=== PATIENT | female | born 1975 | race Two or more races ===

== ENCOUNTER 2016-08-04 15:19 | Emergency (ER) | payer MEDICAID ==
[~2016-08-04] VITALS: Ht 167.6 cm; Wt 108.9 kg
[~2016-08-04 15:19] MED LIST: LEVE500T22 PO
[2016-08-04 16:17] VITALS: BP 130/79
[2016-08-04] MEDS ORDERED: LEVETIRACETAM INJ 1,000 MG in SODIUM CHL 0.9% 100 ML IV ONE (16:30)
[2016-08-04] MEDS ORDERED: ONDANSETRON HCL 4 MG/2 ML VIAL IV ONE (16:30)
[2016-08-04] MEDS ORDERED: MORPHINE SULFATE 4 MG/ML SYRG IV ONE (16:30)
[2016-08-04 17:19] LABS: Albumin 3.4 g/dL (3.4-5.0); BUN/Creatinine Ratio 16.7; Bilirubin, Total 0.3 mg/dL (0.2-1.0); Calcium 8.2 mg/dL (8.5-10.1); Potassium 3.2 mmol/L (3.5-5.1); Total Protein 7.5 g/dL (6.4-8.2)
[2016-08-04 17:37] LABS: Basophils # (auto) 0 uL; Basophils % (auto) 0.3 % (0.0-2.0); DEFINITIVE VIEW TRANSMISSION; Eosinophils # (auto) 0.1 uL; Eosinophils % (auto) 1.3 % (0.0-7.0); Hematocrit 37.7 % (36.0-46.0); Hemoglobin 11.8 g/dL (12.2-16.2); Lymphocytes # (auto) 0.9 uL; Lymphocytes % (auto) 11.8 % (10.0-50.0); Mean Corpuscular Hemoglobin 26.9 pg (28.0-32.0); Mean Corpuscular Hgb Conc. 31.4 g/dL (32.0-36.0); Mean Corpuscular Volume 85.8 fL (80.0-100.0); Mean Platelet Volume 8.9 fL (7.4-10.4); Monocytes # (auto) 0.4 uL; Monocytes % (auto) 5.6 % (0.0-12.0); Neutrophils # (auto) 6.2 uL; Platelet Count (auto) 340 10^3/uL (140-450); White Blood Cell 7.7 10^3/uL (4.4-10.8)
== END 2016-08-04 19:06 | disposition home or self-care (01) ==
LOC: EDUNIT# 15:19 → ER 15:30
DX: G40.909 Epilepsy, unspecified, not intractable, without status epilepticus (principal)
CPT/HCPCS: 36415; 80053; 85025; 94761; 96365; 96375; 99284; J1953; J2270; J2405; J7030

== ENCOUNTER 2016-08-22 22:14 | Emergency (ER) | payer MEDICAID ==
[~2016-08-22] VITALS: Ht 167.6 cm; Wt 104.3 kg
[2016-08-22] MEDS ORDERED: SODIUM CHLORIDE 0.9% 1,000 ML IVB ONE (23:16)
[2016-08-22] MEDS ORDERED: LEVETIRACETAM INJ 1,000 MG in SODIUM CHL 0.9% 100 ML IV ONE (23:30)
[2016-08-22] MEDS ORDERED: LEVETIRACETAM 500 MG/5ML INJ IV ONE (23:49)
[2016-08-22 23:57] LABS: Basophils # (auto) 0 uL; Basophils % (auto) 0.3 % (0.0-2.0); DEFINITIVE VIEW TRANSMISSION; Eosinophils # (auto) 0.1 uL; Eosinophils % (auto) 1.8 % (0.0-7.0); Hematocrit 37.2 % (36.0-46.0); Hemoglobin 11.7 g/dL (12.2-16.2); Lymphocytes # (auto) 1.2 uL; Lymphocytes % (auto) 19.4 % (10.0-50.0); Mean Corpuscular Hemoglobin 26.8 pg (28.0-32.0); Mean Corpuscular Hgb Conc. 31.6 g/dL (32.0-36.0); Mean Corpuscular Volume 84.9 fL (80.0-100.0); Mean Platelet Volume 8.1 fL (7.4-10.4); Monocytes # (auto) 0.6 uL; Monocytes % (auto) 9.2 % (0.0-12.0); Neutrophils # (auto) 4.4 uL; Neutrophils % (auto) 69.3 % (37.0-80.0); Platelet Count (auto) 361 10^3/uL (140-450); Red Cell Distribution Width 14.4 % (11.6-16.0); White Blood Cell 6.3 10^3/uL (4.4-10.8)
[2016-08-23 00:18] LABS: Albumin 3.5 g/dL (3.4-5.0); BUN/Creatinine Ratio 17.3; Calcium 8.3 mg/dL (8.5-10.1); Potassium 3.6 mmol/L (3.5-5.1)
[2016-08-23 00:21] LABS: Bilirubin, Total 0.3 mg/dL (0.2-1.0); Total Protein 7.6 g/dL (6.4-8.2)
[2016-08-23 07:00] VITALS: BP 110/66
== END 2016-08-23 07:29 | disposition home or self-care (01) ==
LOC: ER 22:17
DX: G40.909 Epilepsy, unspecified, not intractable, without status epilepticus (principal); E07.9 Disorder of thyroid, unspecified
CPT/HCPCS: 36415; 80053; 81025; 85025; 96365; 96366; 99285; J1953

== ENCOUNTER 2017-08-19 13:12 | Emergency (ER) | payer MEDICAID ==
[~2017-08-19] VITALS: Ht 170.2 cm; Wt 68.0 kg
[2017-08-19 13:33] VITALS: BP 140/75
[2017-08-19 14:05] LABS: Basophils # (auto) 0.1 uL; Basophils % (auto) 1.1 % (0.0-2.0); Eosinophils # (auto) 0.1 uL; Eosinophils % (auto) 1.4 % (0.0-7.0); Hematocrit 36.7 % (36.0-46.0); Hemoglobin 11.8 g/dL (12.2-16.2); Lymphocytes # (auto) 0.8 uL; Lymphocytes % (auto) 14.7 % (10.0-50.0); Mean Corpuscular Hemoglobin 26.5 pg (28.0-32.0); Mean Corpuscular Hgb Conc. 32.2 g/dL (32.0-36.0); Mean Corpuscular Volume 82.2 fL (80.0-100.0); Monocytes # (auto) 0.4 uL; Monocytes % (auto) 7.8 % (0.0-12.0); Nucleated Red Blood Cells % 0.1 %; Platelet Count (auto) 308 10^3/uL (140-450); Red Blood Cells 4.46 10^6/uL (4.0-5.20); Red Cell Distribution Width 16.5 % (11.8-14.3); White Blood Cell 5.3 10^3/uL (4.4-10.8)
[2017-08-19 15:26] LABS: Albumin 3.5 g/dL (3.4-5.0); BUN/Creatinine Ratio 15.6; Bilirubin, Total 0.2 mg/dL (0.2-1.0); Calcium 8.6 mg/dL (8.5-10.1)
[2017-08-19] MEDS ORDERED: HYDROcodone-ACET 5/325MG TAB PO ONE (20:00)
== END 2017-08-19 21:26 | disposition home or self-care (01) ==
LOC: ER 13:12 → EDBD 13:12 → ER 21:18
DX: R56.9 Unspecified convulsions (principal)
CPT/HCPCS: 36415; 80053; 85025

== ENCOUNTER 2017-09-30 14:17 | Emergency (ER) | payer MEDICAID ==
[~2017-09-30] VITALS: Ht 167.6 cm; Wt 84.1 kg
[2017-09-30 14:56] LABS: Urine Bacteria NONE SEEN /hpf (None Seen); Urine Blood Negative /uL (Negative); Urine Specific Gravity 1.008 (1.001-1.035); Urine WBC 1 /hpf (0 - 5)
[2017-09-30 14:58] LABS: Alcohol, Urine < 3.0 mg/dL (0-5); Amphetamine Screen, Urine NEGATIVE (NEGATIVE); Barbiturate Scree,Urine NEGATIVE (NEGATIVE); Benzodiazephine Screen, Urine NEGATIVE (NEGATIVE); Cannabinoid Screen, Urine NEGATIVE (NEGATIVE); Cocaine Screen, Urine NEGATIVE (NEGATIVE); Opiate Scree,Urine NEGATIVE (NEGATIVE); Phencyclidine Screen, Urine NEGATIVE (NEGATIVE)
[2017-09-30 15:23] LABS: Basophils # (auto) 0 uL; Basophils % (auto) 0.4 % (0.0-2.0); Eosinophils # (auto) 0.1 uL; Eosinophils % (auto) 2.1 % (0.0-7.0); Hematocrit 35.2 % (36.0-46.0); Hemoglobin 11.6 g/dL (12.2-16.2); Lymphocytes # (auto) 1.3 uL; Lymphocytes % (auto) 26.7 % (10.0-50.0); Mean Corpuscular Volume 81.9 fL (80.0-100.0); Monocytes # (auto) 0.4 uL; Monocytes % (auto) 8.7 % (0.0-12.0); Neutrophils # (auto) 3.1 uL; Neutrophils % (auto) 62.1 % (37.0-80.0); Nucleated Red Blood Cells % 0.1 %; Platelet Count (auto) 304 10^3/uL (140-450); Red Cell Distribution Width 15.6 % (11.8-14.3); White Blood Cell 4.9 10^3/uL (4.4-10.8)
[2017-09-30 15:33] LABS: INR 0.98 (0.9-1.15); Partial Thromboplastin Time 26.8 sec (22.64-33.71); Prothrombin Time 10.7 sec (9.37-12.3)
[2017-09-30 15:44] LABS: Alanine Aminotransferase 17 U/L (13-56); Albumin 3.5 g/dL (3.4-5.0); Alkaline Phosphatase 151 U/L (45-117); Anion Gap 7 (5-15); Aspartate Aminotransferase 15 U/L (15-37); BUN/Creatinine Ratio 12.3; Bilirubin, Total 0.2 mg/dL (0.2-1.0); Blood Urea Nitrogen 10 mg/dL (7-18); Calcium 8.2 mg/dL (8.5-10.1); Carbon Dioxide 24 mmol/L (21-32); Chloride 109 mmol/L (98-107); GFR African American 101 mL/min; GFR Non-African American 84 mL/min; Glucose 87 mg/dL (74-106); Magnesium 2.3 mg/dL (1.6-2.6); Potassium 3.7 mmol/L (3.5-5.1); Sodium 140 mmol/L (136-145); Total Protein 7.9 g/dL (6.4-8.2)
[2017-10-01] MEDS ORDERED: LORazepam 2MG/ML-1ML VIAL ONE (00:53)
[2017-10-01] MEDS ORDERED: LORazepam 2MG/ML-1ML VIAL IV ONE (01:00)
[2017-10-01 02:43] VITALS: BP 98/59
== END 2017-10-01 02:39 | disposition home or self-care (01) ==
LOC: ER 14:17 → EDBD 14:17 → ER 10-01 02:39
DX: G40.909 Epilepsy, unspecified, not intractable, without status epilepticus (principal); E07.89 Other specified disorders of thyroid
CPT/HCPCS: 36415; 70450; 71045; 73020; 80053; 80307; 81001; 83735; 84484; 85025; 85610; 85730; 93005; 96374; 99285; J2060

== ENCOUNTER 2017-12-07 18:33 | Inpatient (IN) | payer MEDICAID ==
[~2017-12-07] VITALS: Ht 167.6 cm; Wt 114.8 kg
[2017-12-07] VITALS: BP 118/74
[2017-12-07] MEDS ORDERED: SODIUM CHLORIDE 0.9% 1,000 ML IVB ONE (18:56)
[2017-12-07] MEDS ORDERED: LEVETIRACETAM INJ 1,000 MG in D5W 5% 100 ML IV ONE ×2 (19:00→21:00)
[2017-12-07] MEDS ORDERED: LORazepam 2MG/ML-1ML VIAL IV ONE (19:00)
[2017-12-07 19:36] LABS: Basophils # (auto) 0 uL; Eosinophils # (auto) 0.1 uL; Mean Corpuscular Volume 80.8 fL (80.0-100.0); Monocytes # (auto) 0.6 uL; Neutrophils # (auto) 3.9 uL; White Blood Cell 5.6 10^3/uL (4.4-10.8)
[2017-12-07 19:38] LABS: Basophils % (auto) 0.5 % (0.0-2.0); Eosinophils % (auto) 1.8 % (0.0-7.0); Hematocrit 33.9 % (36.0-46.0); Hemoglobin 11.2 g/dL (12.2-16.2); Lymphocytes # (auto) 0.9 uL; Lymphocytes % (auto) 16.9 % (10.0-50.0); Mean Corpuscular Hemoglobin 26.6 pg (28.0-32.0); Mean Corpuscular Hgb Conc. 32.9 g/dL (32.0-36.0); Monocytes % (auto) 10.1 % (0.0-12.0); Neutrophils % (auto) 70.7 % (37.0-80.0); Nucleated Red Blood Cells % 0.1 %; Platelet Count (auto) 290 10^3/uL (140-450); Red Blood Cells 4.19 10^6/uL (4.0-5.20); Red Cell Distribution Width 14.9 % (11.8-14.3)
[2017-12-07 19:58] LABS: Albumin 3.3 g/dL (3.4-5.0); Magnesium 2.2 mg/dL (1.6-2.6); Potassium 3.4 mmol/L (3.5-5.1)
[2017-12-07 20:00] LABS: BUN/Creatinine Ratio 9.5
[2017-12-07 20:03] LABS: Bilirubin, Total 0.2 mg/dL (0.2-1.0); Total Protein 7.6 g/dL (6.4-8.2)
[2017-12-07] MEDS ORDERED: LEVETIRACETAM 500 MG/5ML INJ IV ONE (20:04)
[2017-12-07] MEDS ORDERED: ONDANSETRON HCL 4 MG/2 ML VIAL IV PRN (22:30)
[2017-12-07] MEDS ORDERED: NITROGLYCERIN 0.4 MG SL TAB SL PRN (22:30)
[2017-12-07] MEDS ORDERED: TEMAZEPAM 15 MG CAP PO PRN (22:30)
[2017-12-07] MEDS ORDERED: ACETAMINOPHEN 325 MG TAB PO PRN (22:30)
[2017-12-07] MEDS ORDERED: MORPHINE SULFATE 8mg/ml INJ SDV IV PRN (22:30)
[2017-12-07] MEDS ORDERED: LORazepam 2MG/ML-1ML VIAL IV PRN (22:30)
[2017-12-07] MEDS ORDERED: POTASSIUM CHL 20 Meq TABLET PO ONE (23:00)
[2017-12-08] VITALS (7 sets, daily range): BP systolic 86–118; BP diastolic 56–75
[2017-12-08 06:26] LABS: Basophils # (auto) 0 uL; Eosinophils # (auto) 0.2 uL; Eosinophils % (auto) 4.7 % (0.0-7.0); Lymphocytes # (auto) 1.2 uL; Neutrophils # (auto) 2.5 uL; Nucleated Red Blood Cells % 0.1 %; White Blood Cell 4.6 10^3/uL (4.4-10.8)
[2017-12-08 06:29] LABS: Basophils % (auto) 0.5 % (0.0-2.0); Hematocrit 31.7 % (36.0-46.0); Hemoglobin 10.4 g/dL (12.2-16.2); Lymphocytes % (auto) 25.8 % (10.0-50.0); Mean Corpuscular Hemoglobin 26.7 pg (28.0-32.0); Mean Corpuscular Hgb Conc. 32.9 g/dL (32.0-36.0); Mean Corpuscular Volume 81.2 fL (80.0-100.0); Monocytes # (auto) 0.6 uL; Monocytes % (auto) 14.2 % (0.0-12.0); Neutrophils % (auto) 54.8 % (37.0-80.0); Platelet Count (auto) 265 10^3/uL (140-450); Red Blood Cells 3.91 10^6/uL (4.0-5.20)
[2017-12-08 06:40] LABS: BUN/Creatinine Ratio 9.5; Potassium 3.8 mmol/L (3.5-5.1)
[2017-12-08 06:41] LABS: Calcium 7.7 mg/dL (8.5-10.1)
[2017-12-08 06:42] LABS: Bilirubin, Total 0.3 mg/dL (0.2-1.0); Total Protein 7.2 g/dL (6.4-8.2)
[2017-12-08] MEDS ORDERED: lamoTRIgine 100 MG TAB PO SCH (10:00)
[2017-12-08] MEDS ORDERED: [UNRECOGNIZED DRUG - OTHER] PO SCH (10:00)
[2017-12-08] MEDS: ENOXAPARIN SOD 40 MG/0.4 ML SYRINGE SC SCH (11:29)
[2017-12-08] MEDS: FAMOTIDINE 20 MG TAB PO SCH ×2 (11:29→20:23)
[2017-12-08] MEDS: LEVETIRACETAM 500 MG TAB PO SCH ×2 (11:40→20:23)
[2017-12-08] MEDS: HYDROcodone-ACET 5/325MG TAB PO PRN ×2 (11:41→20:37)
[2017-12-08] MEDS ORDERED: FOLI1TAB6 PO ×2 (16:38)
[2017-12-08] MEDS ORDERED: LAM100T PO ×2 (16:38)
[2017-12-08] MEDS ORDERED: ESLI1TAB4 PO ×2 (16:38)
[2017-12-08] MEDS: lamoTRIgine 100 MG TAB PO SCH (20:21)
[2017-12-09 05:16] VITALS: BP 115/72
[2017-12-09 09:00] VITALS: BP 122/66
[2017-12-09] MEDS: FAMOTIDINE 20 MG TAB PO SCH ×2 (10:28→21:53)
[2017-12-09] MEDS: ENOXAPARIN SOD 40 MG/0.4 ML SYRINGE SC SCH (10:29)
[2017-12-09] MEDS: HYDROcodone-ACET 5/325MG TAB PO PRN ×2 (10:29→20:31)
[2017-12-09] MEDS: LEVETIRACETAM 500 MG TAB PO SCH ×2 (10:29→21:52)
[2017-12-09] MEDS: FOLIC ACID 1 MG TAB PO SCH (10:30)
[2017-12-09] MEDS: lamoTRIgine 100 MG TAB PO SCH ×2 (10:30→21:53)
[2017-12-09 13:00] VITALS: BP 95/53
[2017-12-09 17:00] VITALS: BP 116/60
[2017-12-09 19:35] LABS: Urine Bacteria NONE SEEN /hpf (None Seen); Urine Blood 3+ /uL (Negative); Urine Specific Gravity 1.012 (1.001-1.035); Urine WBC 5 /hpf (0 - 5)
[2017-12-09 22:00] VITALS: BP 108/74
[2017-12-10 04:58] VITALS: BP 104/76
[2017-12-10] MEDS: ENOXAPARIN SOD 40 MG/0.4 ML SYRINGE SC SCH (07:44)
[2017-12-10] MEDS: LEVETIRACETAM 500 MG TAB PO SCH (07:45)
[2017-12-10] MEDS: FOLIC ACID 1 MG TAB PO SCH (07:45)
[2017-12-10] MEDS: lamoTRIgine 100 MG TAB PO SCH (07:45)
[2017-12-10] MEDS: FAMOTIDINE 20 MG TAB PO SCH (07:45)
[2017-12-10 09:00] VITALS: BP 122/67
[2017-12-10] MEDS ORDERED: LAM100T PO ×2 (10:28)
== END 2017-12-10 12:00 | disposition home or self-care (01) | DRG 53 ==
LOC: EDBD 18:33 → ER 18:33 → TELE 18:34 → TELE-CENTR 23:33 → CENTRAL 12-08 14:08
PROVIDERS: ADMIT Nurse Practitioner; ATTEND Internal Medicine
DX: G40.901 Epilepsy, unspecified, not intractable, with status epilepticus (principal); E44.1 Mild protein-calorie malnutrition; E66.01 Morbid (severe) obesity due to excess calories; E87.6 Hypokalemia; D64.9 Anemia, unspecified; Z79.899 Other long term (current) drug therapy; Z82.49 Family history of ischemic heart disease and other diseases of the circulatory system; Z83.3 Family history of diabetes mellitus; Z68.41 Body mass index [BMI] 40.0-44.9, adult
CPT/HCPCS: 36415; 70450; 80053; 81001; 81025; 83735; 84146; 85025; 94761; 96361; 96365; 96375; J7060

== ENCOUNTER 2017-12-10 20:23 | Emergency (ER) | payer MEDICAID ==
[~2017-12-10] VITALS: Ht 167.6 cm; Wt 108.9 kg
[~2017-12-10 20:23] MED LIST changes: +ESLI1TAB4 PO; +FOLI1TAB6 PO; +LAM100T PO
[2017-12-10] MEDS ORDERED: SODIUM CHLORIDE 0.9% 1,000 ML IVB ONE (20:47)
[2017-12-10] MEDS ORDERED: LEVETIRACETAM INJ 1,000 MG in D5W 5% 100 ML IV ONE (21:00)
[2017-12-10 21:16] LABS: Basophils # (auto) 0 uL; Eosinophils # (auto) 0.1 uL; Lymphocytes # (auto) 1.2 uL; Monocytes # (auto) 0.4 uL; Neutrophils # (auto) 2.8 uL
[2017-12-10 21:18] LABS: Basophils % (auto) 0.6 % (0.0-2.0); Eosinophils % (auto) 2.4 % (0.0-7.0); Hematocrit 36.7 % (36.0-46.0); Lymphocytes % (auto) 25.8 % (10.0-50.0); Mean Corpuscular Hemoglobin 26.2 pg (28.0-32.0); Mean Corpuscular Hgb Conc. 32.8 g/dL (32.0-36.0); Mean Corpuscular Volume 79.9 fL (80.0-100.0); Monocytes % (auto) 9.6 % (0.0-12.0); Neutrophils % (auto) 61.6 % (37.0-80.0); Nucleated Red Blood Cells % 0.1 %; Platelet Count (auto) 364 10^3/uL (140-450); Red Blood Cells 4.59 10^6/uL (4.0-5.20); Red Cell Distribution Width 15.3 % (11.8-14.3); White Blood Cell 4.6 10^3/uL (4.4-10.8)
[2017-12-10 21:32] LABS: Albumin 3.6 g/dL (3.4-5.0); BUN/Creatinine Ratio 11.7; Calcium 8.3 mg/dL (8.5-10.1); Magnesium 2.5 mg/dL (1.6-2.6); Potassium 4.2 mmol/L (3.5-5.1)
[2017-12-10 21:34] LABS: Bilirubin, Total 0.2 mg/dL (0.2-1.0); Total Protein 8.1 g/dL (6.4-8.2)
[2017-12-10] MEDS ORDERED: LORazepam 2MG/ML-1ML VIAL IV ONE (21:45)
[2017-12-10 22:28] LABS: Alcohol, Urine < 3.0 mg/dL (0-5); Amphetamine Screen, Urine NEGATIVE (NEGATIVE); Barbiturate Scree,Urine NEGATIVE (NEGATIVE); Benzodiazephine Screen, Urine NEGATIVE (NEGATIVE); Cannabinoid Screen, Urine NEGATIVE (NEGATIVE); Cocaine Screen, Urine NEGATIVE (NEGATIVE); Opiate Scree,Urine NEGATIVE (NEGATIVE); Phencyclidine Screen, Urine NEGATIVE (NEGATIVE)
[2017-12-11 00:51] VITALS: BP 126/81
== END 2017-12-11 01:55 | disposition home or self-care (01) ==
LOC: EDBD 20:23 → ER 20:23
DX: G40.909 Epilepsy, unspecified, not intractable, without status epilepticus (principal); R42 Dizziness and giddiness; R53.1 Weakness; E07.9 Disorder of thyroid, unspecified; E66.01 Morbid (severe) obesity due to excess calories; Z68.38 Body mass index [BMI] 38.0-38.9, adult
CPT/HCPCS: 36415; 80053; 80307; 83735; 85025; 93005; 96365; 96375; 99285; J1953; J2060; J7030; J7060

== ENCOUNTER 2017-12-12 12:45 | Inpatient (IN) | payer MEDICAID ==
[~2017-12-12] VITALS: Ht 167.6 cm; Wt 122.1 kg
[2017-12-12] MEDS ORDERED: SODIUM CHLORIDE 0.9% 1,000 ML IV ONE ×2 (12:52)
[2017-12-12] MEDS ORDERED: NALOXONE HCL 0.4 MG/ML VIAL ONE (12:57)
[2017-12-12] MEDS ORDERED: NALOXONE HCL 0.4 MG/ML VIAL IV ONE (13:00)
[2017-12-12 13:36] LABS: Basophils # (auto) 0 uL; Eosinophils # (auto) 0.1 uL; Lymphocytes # (auto) 1.6 uL; Monocytes # (auto) 0.4 uL
[2017-12-12 13:38] LABS: Basophils % (auto) 0.2 % (0.0-2.0); Eosinophils % (auto) 1.7 % (0.0-7.0); Hematocrit 37.6 % (36.0-46.0); Hemoglobin 12.3 g/dL (12.2-16.2); Lymphocytes % (auto) 35.3 % (10.0-50.0); Mean Corpuscular Hemoglobin 26.2 pg (28.0-32.0); Mean Corpuscular Hgb Conc. 32.6 g/dL (32.0-36.0); Mean Corpuscular Volume 80.2 fL (80.0-100.0); Monocytes % (auto) 9.4 % (0.0-12.0); Neutrophils # (auto) 2.3 uL; Neutrophils % (auto) 53.4 % (37.0-80.0); Nucleated Red Blood Cells % 0.1 %; Platelet Count (auto) 333 10^3/uL (140-450); Red Blood Cells 4.69 10^6/uL (4.0-5.20); Red Cell Distribution Width 15.2 % (11.8-14.3); White Blood Cell 4.4 10^3/uL (4.4-10.8)
[2017-12-12 13:53] LABS: Alanine Aminotransferase 19 U/L (13-56); Albumin 3.6 g/dL (3.4-5.0); Anion Gap 8 (5-15); Aspartate Aminotransferase 18 U/L (15-37); BUN/Creatinine Ratio 11.9; Blood Urea Nitrogen 10 mg/dL (7-18); Calcium 8.3 mg/dL (8.5-10.1); Carbon Dioxide 24 mmol/L (21-32); Chloride 107 mmol/L (98-107); GFR African American 97 mL/min; GFR Non-African American 80 mL/min; Glucose 82 mg/dL (74-106); Potassium 3.9 mmol/L (3.5-5.1); Sodium 139 mmol/L (136-145)
[2017-12-12 13:58] LABS: Alkaline Phosphatase 144 U/L (45-117); Bilirubin, Total 0.2 mg/dL (0.2-1.0); Creatine Kinase IFCC 34 U/L (26-192); Total Protein 8.1 g/dL (6.4-8.2)
[2017-12-12 14:06] LABS: Partial Thromboplastin Time 27.8 sec (23.78-33.04); Prothrombin Time 10.7 sec (9.27-12.13)
[2017-12-12] MEDS ORDERED: LORazepam 2MG/ML-1ML VIAL IV PRN (18:00)
[2017-12-12] MEDS ORDERED: ACETAMINOPHEN 325 MG TAB PO PRN (18:15)
[2017-12-12] MEDS ORDERED: DOCUSATE SOD 100 MG CAP PO PRN (18:15)
[2017-12-12] MEDS ORDERED: MORPHINE SULF INJ 2 MG/ML SYRINGE 1ML IV PRN (18:15)
[2017-12-12] MEDS ORDERED: NITROGLYCERIN 0.4 MG SL TAB SL PRN (18:15)
[2017-12-12] MEDS ORDERED: ONDANSETRON HCL 4 MG/2 ML VIAL IV PRN (18:15)
[2017-12-12] MEDS ORDERED: TEMAZEPAM 15 MG CAP PO PRN (18:15)
[2017-12-12] MEDS: SODIUM CHLOR 0.9% PF (SALINE LOCK) 10ML VIAL/SYR IV SCH (21:50)
[2017-12-12] MEDS: LEVETIRACETAM 500 MG TAB PO SCH (21:50)
[2017-12-12] MEDS: HYDROcodone-ACET 5/325MG TAB PO PRN (21:51)
[2017-12-12] MEDS: FAMOTIDINE 20 MG TAB PO SCH (21:51)
[2017-12-12] MEDS: lamoTRIgine 100 MG TAB PO SCH (21:51)
[2017-12-12 22:00] VITALS: BP 113/57
[2017-12-13 05:00] VITALS: BP 103/57
[2017-12-13] MEDS: SODIUM CHLOR 0.9% PF (SALINE LOCK) 10ML VIAL/SYR IV SCH ×3 (05:24→22:09)
[2017-12-13 06:42] LABS: Basophils # (auto) 0 uL; Basophils % (auto) 0.4 % (0.0-2.0); Eosinophils # (auto) 0.2 uL; Eosinophils % (auto) 3.7 % (0.0-7.0); Hematocrit 33.2 % (36.0-46.0); Hemoglobin 10.9 g/dL (12.2-16.2); Lymphocytes # (auto) 1.5 uL; Lymphocytes % (auto) 32.7 % (10.0-50.0); Mean Corpuscular Hemoglobin 26.1 pg (28.0-32.0); Mean Corpuscular Hgb Conc. 32.9 g/dL (32.0-36.0); Mean Corpuscular Volume 79.5 fL (80.0-100.0); Monocytes # (auto) 0.6 uL; Monocytes % (auto) 12.5 % (0.0-12.0); Neutrophils # (auto) 2.3 uL; Neutrophils % (auto) 50.7 % (37.0-80.0); Platelet Count (auto) 313 10^3/uL (140-450); Red Blood Cells 4.17 10^6/uL (4.0-5.20); Red Cell Distribution Width 14.8 % (11.8-14.3); White Blood Cell 4.5 10^3/uL (4.4-10.8)
[2017-12-13 07:03] LABS: Albumin 3.1 g/dL (3.4-5.0); BUN/Creatinine Ratio 13.4; Potassium 3.6 mmol/L (3.5-5.1)
[2017-12-13 07:06] LABS: Bilirubin, Total 0.3 mg/dL (0.2-1.0); Total Protein 6.9 g/dL (6.4-8.2)
[2017-12-13 09:35] VITALS: BP 101/53
[2017-12-13] MEDS ORDERED: PATIENTS OWN MEDICATION PO SCH (10:00)
[2017-12-13] MEDS: MULTIPLE VITAMIN TAB PO SCH (10:17)
[2017-12-13] MEDS: lamoTRIgine 100 MG TAB PO SCH ×2 (10:17→22:10)
[2017-12-13] MEDS: FOLIC ACID 1 MG TAB PO SCH (10:17)
[2017-12-13] MEDS: LEVETIRACETAM 500 MG TAB PO SCH ×2 (10:17→22:10)
[2017-12-13] MEDS: FAMOTIDINE 20 MG TAB PO SCH ×2 (10:18→22:00)
[2017-12-13] MEDS: HYDROcodone-ACET 5/325MG TAB PO PRN ×2 (10:33→22:11)
[2017-12-13 13:00] VITALS: BP 111/66
[2017-12-13 14:29] LABS: Urine Bacteria FEW /hpf (None Seen); Urine Blood Negative /uL (Negative); Urine WBC 1 /hpf (0 - 5)
[2017-12-13 14:47] LABS: Alcohol, Urine < 3.0 mg/dL (0-5); Amphetamine Screen, Urine NEGATIVE (NEGATIVE); Barbiturate Scree,Urine NEGATIVE (NEGATIVE); Benzodiazephine Screen, Urine NEGATIVE (NEGATIVE); Cannabinoid Screen, Urine NEGATIVE (NEGATIVE); Cocaine Screen, Urine NEGATIVE (NEGATIVE); Opiate Scree,Urine NEGATIVE (NEGATIVE); Phencyclidine Screen, Urine NEGATIVE (NEGATIVE)
[2017-12-13 17:29] VITALS: BP 103/51
[2017-12-13 22:00] VITALS: BP 106/64
[2017-12-14 05:00] VITALS: BP 119/64
[2017-12-14] MEDS: SODIUM CHLOR 0.9% PF (SALINE LOCK) 10ML VIAL/SYR IV SCH ×3 (06:24→21:02)
[2017-12-14 08:00] VITALS: BP 104/59
[2017-12-14] MEDS: HYDROcodone-ACET 5/325MG TAB PO PRN (08:12)
[2017-12-14] MEDS: FOLIC ACID 1 MG TAB PO SCH (10:05)
[2017-12-14] MEDS: LEVETIRACETAM 500 MG TAB PO SCH ×2 (10:05→20:57)
[2017-12-14] MEDS: lamoTRIgine 100 MG TAB PO SCH ×2 (10:05→20:58)
[2017-12-14] MEDS: FAMOTIDINE 20 MG TAB PO SCH ×2 (10:06→20:57)
[2017-12-14] MEDS: MULTIPLE VITAMIN TAB PO SCH (10:06)
[2017-12-14 12:48] VITALS: BP 105/52
[2017-12-14 17:00] VITALS: BP 104/53
[2017-12-14 22:00] VITALS: BP 105/43
[2017-12-15 05:00] VITALS: BP 98/43
[2017-12-15] MEDS: SODIUM CHLOR 0.9% PF (SALINE LOCK) 10ML VIAL/SYR IV SCH ×3 (06:00→20:57)
[2017-12-15] MEDS: HYDROcodone-ACET 5/325MG TAB PO PRN (06:39)
[2017-12-15 08:59] VITALS: BP 112/55
[2017-12-15] MEDS: FOLIC ACID 1 MG TAB PO SCH (09:54)
[2017-12-15] MEDS: FAMOTIDINE 20 MG TAB PO SCH ×2 (09:55→20:57)
[2017-12-15] MEDS: LEVETIRACETAM 500 MG TAB PO SCH ×2 (09:55→20:56)
[2017-12-15] MEDS: lamoTRIgine 100 MG TAB PO SCH ×2 (09:55→20:57)
[2017-12-15] MEDS: MULTIPLE VITAMIN TAB PO SCH (09:55)
[2017-12-15 12:52] VITALS: BP 120/68
[2017-12-15 17:00] VITALS: BP 102/61
[2017-12-15 19:08] VITALS: BP 102/61
[2017-12-15 22:00] VITALS: BP 104/57
== END 2017-12-16 03:35 | disposition short-term general hospital (02) | DRG 53 ==
LOC: EDBD 12:45 → EDUNIT# 12:45 → ER 12:48 → TELE 12:49 → TELE-WESTW 20:25
PROVIDERS: ADMIT Internal Medicine; ATTEND Internal Medicine
DX: G40.901 Epilepsy, unspecified, not intractable, with status epilepticus (principal); G93.41 Metabolic encephalopathy; E44.1 Mild protein-calorie malnutrition; Z68.41 Body mass index [BMI] 40.0-44.9, adult; N39.0 Urinary tract infection, site not specified; J98.11 Atelectasis; N18.2 Chronic kidney disease, stage 2 (mild); E66.01 Morbid (severe) obesity due to excess calories; E83.51 Hypocalcemia; Z79.899 Other long term (current) drug therapy; Z82.49 Family history of ischemic heart disease and other diseases of the circulatory system; Z83.3 Family history of diabetes mellitus; Z80.9 Family history of malignant neoplasm, unspecified
CPT/HCPCS: 36415; 70450; 71045; 80053; 80307; 80320; 81001; 82550; 83605; 84484; 85025; 85610; 85730; 87040; 87081; 87086; 95819; 96361; 96374; 97116; 97163; 97530

== ENCOUNTER 2017-12-28 16:18 | Inpatient (IN) | payer MEDICAID ==
[~2017-12-28] VITALS: Ht 167.6 cm; Wt 99.7 kg
[2017-12-28 17:01] LABS: Basophils # (auto) 0 uL; Eosinophils # (auto) 0.1 uL; Hemoglobin 10.7 g/dL (12.2-16.2); Lymphocytes # (auto) 1.2 uL; Monocytes # (auto) 0.5 uL
[2017-12-28 17:02] LABS: Basophils % (auto) 0.3 % (0.0-2.0); Eosinophils % (auto) 1.2 % (0.0-7.0); Hematocrit 32.4 % (36.0-46.0); Lymphocytes % (auto) 20.1 % (10.0-50.0); Mean Corpuscular Hemoglobin 26.9 pg (28.0-32.0); Mean Corpuscular Volume 81.6 fL (80.0-100.0); Monocytes % (auto) 9.1 % (0.0-12.0); Neutrophils % (auto) 69.3 % (37.0-80.0); Nucleated Red Blood Cells % 0.1 %; Platelet Count (auto) 329 10^3/uL (140-450); Red Blood Cells 3.97 10^6/uL (4.0-5.20); Red Cell Distribution Width 15.1 % (11.8-14.3); White Blood Cell 5.7 10^3/uL (4.4-10.8)
[2017-12-28 17:26] LABS: Alanine Aminotransferase 18 U/L (13-56); Albumin 3.4 g/dL (3.4-5.0); Alkaline Phosphatase 123 U/L (45-117); Anion Gap 11 (5-15); Aspartate Aminotransferase 14 U/L (15-37); BUN/Creatinine Ratio 9.4; Bilirubin, Total 0.2 mg/dL (0.2-1.0); Blood Alcohol < 3.0 mg/dL (0-5); Blood Urea Nitrogen 10 mg/dL (7-18); Calcium 8.1 mg/dL (8.5-10.1); Carbon Dioxide 22 mmol/L (21-32); Chloride 109 mmol/L (98-107); GFR African American 74 mL/min; GFR Non-African American 61 mL/min; Glucose 118 mg/dL (74-106); Potassium 3.2 mmol/L (3.5-5.1); Sodium 142 mmol/L (136-145); Total Protein 7.5 g/dL (6.4-8.2)
[2017-12-28] MEDS ORDERED: POTASSIUM CHL 20 Meq TABLET PO ONE (19:15)
[2017-12-28] MEDS ORDERED: ACETAMINOPHEN 500 MG TAB PO PRN (21:00)
[2017-12-28] MEDS ORDERED: LORazepam 0.5 MG TAB PO PRN (21:15)
[2017-12-28] MEDS ORDERED: ONDANSETRON HCL 4 MG/2 ML VIAL IV PRN (21:15)
[2017-12-28] MEDS ORDERED: TEMAZEPAM 15 MG CAP PO PRN (21:15)
[2017-12-28] MEDS ORDERED: LORazepam 2MG/ML-1ML VIAL IV PRN (21:15)
[2017-12-28] MEDS ORDERED: MECLIZINE HCL 25 MG TAB PO ONE (21:30)
[2017-12-28] MEDS: lamoTRIgine 25 MG TAB PO SCH (22:02)
[2017-12-28 23:00] VITALS: BP 145/77
[2017-12-28] MEDS: HYDROcodone-ACET 5/325MG TAB PO PRN (23:33)
[2017-12-28 23:55] LABS: Urine Amorphous Crystal MANY /hpf (None Seen); Urine Bacteria NONE SEEN /hpf (None Seen); Urine Blood Negative /uL (Negative); Urine Mucus FEW (None Seen); Urine Specific Gravity 1.022 (1.001-1.035); Urine WBC 4 /hpf (0 - 5)
[2017-12-29 00:08] LABS: Alcohol, Urine < 3.0 mg/dL (0-5); Amphetamine Screen, Urine NEGATIVE (NEGATIVE); Barbiturate Scree,Urine NEGATIVE (NEGATIVE); Benzodiazephine Screen, Urine NEGATIVE (NEGATIVE); Cannabinoid Screen, Urine NEGATIVE (NEGATIVE); Cocaine Screen, Urine NEGATIVE (NEGATIVE); Opiate Scree,Urine NEGATIVE (NEGATIVE); Phencyclidine Screen, Urine NEGATIVE (NEGATIVE)
[2017-12-29 04:52] VITALS: BP 123/62
[2017-12-29 05:41] LABS: Basophils # (auto) 0 uL; Basophils % (auto) 0.3 % (0.0-2.0); Lymphocytes # (auto) 1.7 uL; Monocytes # (auto) 0.6 uL; Neutrophils # (auto) 2.8 uL
[2017-12-29 05:47] LABS: Eosinophils # (auto) 0.2 uL; Hematocrit 30.1 % (36.0-46.0); Hemoglobin 10.3 g/dL (12.2-16.2); Lymphocytes % (auto) 32.8 % (10.0-50.0); Mean Corpuscular Hemoglobin 27.3 pg (28.0-32.0); Mean Corpuscular Hgb Conc. 34.2 g/dL (32.0-36.0); Monocytes % (auto) 11.4 % (0.0-12.0); Neutrophils % (auto) 52.5 % (37.0-80.0); Platelet Count (auto) 316 10^3/uL (140-450); Red Blood Cells 3.77 10^6/uL (4.0-5.20); Red Cell Distribution Width 15.4 % (11.8-14.3); White Blood Cell 5.2 10^3/uL (4.4-10.8)
[2017-12-29 06:00] LABS: BUN/Creatinine Ratio 14.5; Calcium 7.8 mg/dL (8.5-10.1); Potassium 3.6 mmol/L (3.5-5.1)
[2017-12-29] MEDS: FOLIC ACID 1 MG TAB PO SCH (07:34)
[2017-12-29] MEDS: lamoTRIgine 25 MG TAB PO SCH ×2 (07:34→22:26)
[2017-12-29] MEDS: LEVETIRACETAM 500 MG TAB PO SCH ×2 (07:35→22:26)
[2017-12-29] MEDS ORDERED: diphenhdrAMINE HCL 50 MG/1 ML VL IV PRN (08:00)
[2017-12-29 09:00] VITALS: BP_SYST 136; BP_SYST 98; BP_DIAS 64; BP_DIAS 75
[2017-12-29] MEDS: HYDROcodone-ACET 5/325MG TAB PO PRN ×2 (12:50→22:34)
[2017-12-29 13:00] VITALS: BP 107/47
[2017-12-29 17:06] VITALS: BP 103/58
[2017-12-29] MEDS ORDERED: lamoTRIgine 100 MG TAB PO SCH (22:00)
[2017-12-29] MEDS ORDERED: lamoTRIgine 25 MG TAB PO SCH ×2 (22:00)
[2017-12-29 22:02] VITALS: BP 103/63
[2017-12-30 05:17] VITALS: BP 113/63
[2017-12-30 07:24] LABS: % Iron Saturation 8.9 % (15-50)
[2017-12-30 07:25] LABS: BUN/Creatinine Ratio 16.3; Calcium 7.6 mg/dL (8.5-10.1); Magnesium 2.3 mg/dL (1.6-2.6); Potassium 3.6 mmol/L (3.5-5.1)
[2017-12-30 07:32] LABS: Basophils # (auto) 0 uL; Basophils % (auto) 0.3 % (0.0-2.0); Eosinophils # (auto) 0.2 uL; Hematocrit 32.7 % (36.0-46.0); Hemoglobin 10.8 g/dL (12.2-16.2); Monocytes # (auto) 0.6 uL; Neutrophils # (auto) 2.8 uL; Platelet Count (auto) 310 10^3/uL (140-450); White Blood Cell 5.3 10^3/uL (4.4-10.8)
[2017-12-30 07:34] LABS: Eosinophils % (auto) 3.8 % (0.0-7.0); Lymphocytes # (auto) 1.7 uL; Lymphocytes % (auto) 31.7 % (10.0-50.0); Mean Corpuscular Hemoglobin 26.6 pg (28.0-32.0); Mean Corpuscular Volume 80.5 fL (80.0-100.0); Monocytes % (auto) 10.9 % (0.0-12.0); Neutrophils % (auto) 53.3 % (37.0-80.0); Nucleated Red Blood Cells % 0.2 %; Red Blood Cells 4.06 10^6/uL (4.0-5.20); Red Cell Distribution Width 15.9 % (11.8-14.3)
[2017-12-30 09:00] VITALS: BP 109/59
[2017-12-30] MEDS: FOLIC ACID 1 MG TAB PO SCH (09:50)
[2017-12-30] MEDS: LEVETIRACETAM 500 MG TAB PO SCH (09:51)
[2017-12-30] MEDS: lamoTRIgine 25 MG TAB PO SCH (09:51)
[2017-12-30] MEDS ORDERED: APTIOM 800MG TAB PO SCH (10:00)
[2017-12-30 13:00] VITALS: BP 118/78
[2017-12-30 17:21] VITALS: BP 112/45
== END 2017-12-30 19:38 | disposition home or self-care (01) | DRG 53 ==
LOC: EDBD 16:18 → ER 16:21 → OVERFLOW 16:22 → WEST WING 22:42
PROVIDERS: ADMIT Nurse Practitioner Family; ATTEND Internal Medicine
DX: G40.901 Epilepsy, unspecified, not intractable, with status epilepticus (principal); N17.0 Acute kidney failure with tubular necrosis; R41.3 Other amnesia; E66.9 Obesity, unspecified; D64.9 Anemia, unspecified; E03.9 Hypothyroidism, unspecified; Z79.899 Other long term (current) drug therapy; Z82.49 Family history of ischemic heart disease and other diseases of the circulatory system; Z83.3 Family history of diabetes mellitus; E87.6 Hypokalemia; Z68.35 Body mass index [BMI] 35.0-35.9, adult
CPT/HCPCS: 36415; 73030; 80048; 80053; 80307; 80320; 81001; 82542; 83540; 83550; 83735; 84443; 84702; 85025; 94761

== ENCOUNTER 2018-01-03 18:34 | Observation (INO) | payer MEDICAID ==
[~2018-01-03] VITALS: Ht 177.8 cm; Wt 99.8 kg
[2018-01-03 20:05] LABS: Basophils # (auto) 0 uL; Eosinophils # (auto) 0.1 uL; Hemoglobin 11.1 g/dL (12.2-16.2); Lymphocytes # (auto) 1.2 uL; Monocytes # (auto) 0.5 uL; Neutrophils # (auto) 3.8 uL; Nucleated Red Blood Cells % 0.1 %
[2018-01-03 20:07] LABS: Basophils % (auto) 0.4 % (0.0-2.0); Hematocrit 33.2 % (36.0-46.0); Lymphocytes % (auto) 22.1 % (10.0-50.0); Mean Corpuscular Hgb Conc. 33.6 g/dL (32.0-36.0); Mean Corpuscular Volume 80.3 fL (80.0-100.0); Monocytes % (auto) 8.3 % (0.0-12.0); Neutrophils % (auto) 67.2 % (37.0-80.0); Platelet Count (auto) 320 10^3/uL (140-450); Red Blood Cells 4.13 10^6/uL (4.0-5.20); Red Cell Distribution Width 15.6 % (11.8-14.3); White Blood Cell 5.6 10^3/uL (4.4-10.8)
[2018-01-03 20:26] LABS: Albumin 3.6 g/dL (3.4-5.0); Bilirubin, Total 0.3 mg/dL (0.2-1.0); Calcium 8.4 mg/dL (8.5-10.1); Potassium 3.1 mmol/L (3.5-5.1); Total Protein 7.4 g/dL (6.4-8.2)
[2018-01-03] MEDS ORDERED: SODIUM CHLORIDE 0.9% 1,000 ML IVB ONE (21:10)
[2018-01-03] MEDS ORDERED: POTASSIUM CHL 20 Meq TABLET PO ONE (22:00)
[2018-01-03] MEDS ORDERED: ACETAMINOPHEN 325 MG TAB PO ONE ×2 (22:41→23:00)
[2018-01-04 13:53] VITALS: BP 100/47
[2018-01-04 14:03] LABS: Urine Bacteria FEW /hpf (None Seen); Urine Blood 3+ /uL (Negative); Urine Mucus FEW (None Seen); Urine Specific Gravity 1.018 (1.001-1.035); Urine WBC 19 /hpf (0 - 5)
[2018-01-04] MEDS ORDERED: POTASSIUM CHL 10% (20 MEQ/15ML) 15ml ORAL SOLN PO ONE (15:30)
== END 2018-01-04 15:29 | disposition home or self-care (01) | DRG 53 ==
LOC: ER 18:34 → EDBD 18:34 → OVERFLOW 18:35 → ER 01-04 15:29
PROVIDERS: ADMIT Family Medicine; ATTEND Family Medicine
DX: G40.909 Epilepsy, unspecified, not intractable, without status epilepticus (principal); E87.6 Hypokalemia; N39.0 Urinary tract infection, site not specified; Z82.49 Family history of ischemic heart disease and other diseases of the circulatory system
CPT/HCPCS: 36415; 70450; 80053; 81001; 82542; 82962; 84702; 85025; 93005; 99285; G0378; J7030

== ENCOUNTER 2018-02-06 10:51 | Inpatient (IN) | payer MEDICAID ==
[~2018-02-06] VITALS: Ht 167.6 cm; Wt 131.8 kg
[2018-02-06] MEDS ORDERED: SODIUM CHLORIDE 0.9% 1,000 ML IVB ONE (11:22)
[2018-02-06 12:14] LABS: Basophils # (auto) 0 uL; Eosinophils # (auto) 0 uL; Hemoglobin 11.1 g/dL (12.2-16.2); Lymphocytes # (auto) 1.1 uL; Neutrophils # (auto) 3.2 uL; White Blood Cell 4.7 10^3/uL (4.4-10.8)
[2018-02-06 12:16] LABS: Basophils % (auto) 0.4 % (0.0-2.0); Eosinophils % (auto) 0.5 % (0.0-7.0); Hematocrit 34.2 % (36.0-46.0); Lymphocytes % (auto) 23.2 % (10.0-50.0); Mean Corpuscular Hemoglobin 25.7 pg (28.0-32.0); Mean Corpuscular Hgb Conc. 32.5 g/dL (32.0-36.0); Mean Corpuscular Volume 79.1 fL (80.0-100.0); Monocytes # (auto) 0.3 uL; Monocytes % (auto) 7.3 % (0.0-12.0); Neutrophils % (auto) 68.6 % (37.0-80.0); Platelet Count (auto) 373 10^3/uL (140-450); Red Blood Cells 4.32 10^6/uL (4.0-5.20); Red Cell Distribution Width 15.1 % (11.8-14.3)
[2018-02-06 12:33] LABS: INR 1.02 (0.9-1.15); Partial Thromboplastin Time 27.6 sec (23.78-33.04); Prothrombin Time 10.9 sec (9.27-12.13)
[2018-02-06 12:46] LABS: Albumin 3.4 g/dL (3.4-5.0); Anion Gap 10 (5-15); Aspartate Aminotransferase 12 U/L (15-37); BUN/Creatinine Ratio 13.4; Blood Urea Nitrogen 9 mg/dL (7-18); Calcium 8.1 mg/dL (8.5-10.1); Carbon Dioxide 24 mmol/L (21-32); Chloride 107 mmol/L (98-107); GFR African American 125 mL/min; GFR Non-African American 104 mL/min; Glucose 89 mg/dL (74-106); Potassium 3.6 mmol/L (3.5-5.1); Sodium 141 mmol/L (136-145)
[2018-02-06 12:55] LABS: Alanine Aminotransferase 17 U/L (13-56); Alkaline Phosphatase 120 U/L (45-117); Bilirubin, Total 0.3 mg/dL (0.2-1.0); Total Protein 7.8 g/dL (6.4-8.2)
[2018-02-06 14:11] LABS: Urine Bacteria FEW /hpf (None Seen); Urine Blood Negative /uL (Negative); Urine Mucus FEW (None Seen); Urine Specific Gravity 1.032 (1.001-1.035); Urine WBC 13 /hpf (0 - 5)
[2018-02-06 14:28] LABS: Alcohol, Urine < 3.0 mg/dL (0-5); Amphetamine Screen, Urine NEGATIVE (NEGATIVE); Barbiturate Scree,Urine NEGATIVE (NEGATIVE); Benzodiazephine Screen, Urine NEGATIVE (NEGATIVE); Cannabinoid Screen, Urine NEGATIVE (NEGATIVE); Cocaine Screen, Urine NEGATIVE (NEGATIVE); Opiate Scree,Urine NEGATIVE (NEGATIVE); Phencyclidine Screen, Urine NEGATIVE (NEGATIVE)
[2018-02-06] MEDS ORDERED: ACETAMINOPHEN 325 MG TAB PO PRN (15:45)
[2018-02-06] MEDS ORDERED: NITROGLYCERIN 0.4 MG SL TAB SL PRN (15:45)
[2018-02-06] MEDS ORDERED: LORazepam 2MG/ML-1ML VIAL IV PRN (15:45)
[2018-02-06] MEDS ORDERED: cefTRIAXone 1GM/10ml IVPUSH 10 ML IV ONE (15:45)
[2018-02-06] MEDS ORDERED: DOCUSATE SOD 100 MG CAP PO PRN (15:45)
[2018-02-06] MEDS ORDERED: MORPHINE SULF INJ 2 MG/ML SYRINGE 1ML IV PRN (15:45)
[2018-02-06] MEDS ORDERED: ONDANSETRON HCL 4 MG/2 ML VIAL IV PRN (15:45)
[2018-02-06] MEDS ORDERED: MORPHINE SULFATE 4 MG/ML SYR/VIAL IV PRN (15:45)
[2018-02-06 17:41] VITALS: BP 124/69
[2018-02-06 21:41] VITALS: BP 107/67
[2018-02-06] MEDS: LEVETIRACETAM 500 MG TAB PO SCH (22:34)
[2018-02-06] MEDS: SODIUM CHLOR 0.9% PF (SALINE LOCK) 10ML VIAL/SYR IV SCH (22:35)
[2018-02-06] MEDS: lamoTRIgine 100 MG TAB PO SCH (22:35)
[2018-02-07 04:40] LABS: Basophils # (auto) 0 uL; Eosinophils # (auto) 0.1 uL; Eosinophils % (auto) 2.5 % (0.0-7.0); Monocytes # (auto) 0.5 uL; Nucleated Red Blood Cells % 0.1 %
[2018-02-07 04:43] LABS: Basophils % (auto) 0.5 % (0.0-2.0); Hematocrit 31.7 % (36.0-46.0); Hemoglobin 10.7 g/dL (12.2-16.2); Lymphocytes # (auto) 1.7 uL; Lymphocytes % (auto) 31.2 % (10.0-50.0); Mean Corpuscular Hgb Conc. 33.7 g/dL (32.0-36.0); Mean Corpuscular Volume 79.9 fL (80.0-100.0); Monocytes % (auto) 9.7 % (0.0-12.0); Neutrophils % (auto) 56.1 % (37.0-80.0); Platelet Count (auto) 338 10^3/uL (140-450); Red Blood Cells 3.96 10^6/uL (4.0-5.20); Red Cell Distribution Width 14.8 % (11.8-14.3); White Blood Cell 5.3 10^3/uL (4.4-10.8)
[2018-02-07 04:51] LABS: Albumin 3.1 g/dL (3.4-5.0); Calcium 7.9 mg/dL (8.5-10.1); Potassium 3.3 mmol/L (3.5-5.1)
[2018-02-07 04:54] LABS: BUN/Creatinine Ratio 11.8
[2018-02-07 04:56] LABS: Bilirubin, Total 0.4 mg/dL (0.2-1.0); Total Protein 6.9 g/dL (6.4-8.2)
[2018-02-07 05:00] VITALS: BP 100/52
[2018-02-07] MEDS: SODIUM CHLOR 0.9% PF (SALINE LOCK) 10ML VIAL/SYR IV SCH ×3 (06:11→21:32)
[2018-02-07 07:50] VITALS: BP 93/56
[2018-02-07 08:12] VITALS: BP 108/66
[2018-02-07] MEDS: lamoTRIgine 100 MG TAB PO SCH ×2 (10:05→21:31)
[2018-02-07] MEDS: B-COMPLEX W/ C & FOLIC ACID(NEPHROVITE TAB) PO SCH (10:05)
[2018-02-07] MEDS: LEVETIRACETAM 500 MG TAB PO SCH ×2 (10:05→21:31)
[2018-02-07] MEDS: MULTIPLE VITAMIN TAB PO SCH (10:05)
[2018-02-07] MEDS ORDERED: POTASSIUM CHLORIDE 8 MEQ TAB PO ONE (10:15)
[2018-02-07 12:00] VITALS: BP 96/59
[2018-02-07] MEDS: Ensure Enlive Strawberry 8oz Bottle PO SCH ×2 (12:00→18:00)
[2018-02-07 17:00] VITALS: BP 98/58
[2018-02-07] MEDS ORDERED: cefTRIAXone 1GM/10ml IVPUSH 10 ML IV SCH (18:00)
[2018-02-07] MEDS: HYDROcodone-ACET 5/325MG TAB PO PRN (18:30)
[2018-02-07 22:00] VITALS: BP 122/64
[2018-02-08] MEDS ORDERED: TEMAZEPAM 15 MG CAP PO ONE (02:00)
[2018-02-08 05:02] VITALS: BP 118/76
[2018-02-08] MEDS: SODIUM CHLOR 0.9% PF (SALINE LOCK) 10ML VIAL/SYR IV SCH (06:01)
[2018-02-08 07:20] LABS: BUN/Creatinine Ratio 14.6; Calcium 8.3 mg/dL (8.5-10.1); Potassium 3.9 mmol/L (3.5-5.1)
[2018-02-08 07:49] LABS: Basophils # (auto) 0 uL; Lymphocytes # (auto) 1.5 uL; Monocytes # (auto) 0.7 uL; Monocytes % (auto) 12.4 % (0.0-12.0); White Blood Cell 5.5 10^3/uL (4.4-10.8)
[2018-02-08 07:51] LABS: Basophils % (auto) 0.4 % (0.0-2.0); Eosinophils # (auto) 0.1 uL; Eosinophils % (auto) 2.3 % (0.0-7.0); Hematocrit 33.6 % (36.0-46.0); Lymphocytes % (auto) 27.6 % (10.0-50.0); Mean Corpuscular Hemoglobin 26.3 pg (28.0-32.0); Mean Corpuscular Hgb Conc. 32.7 g/dL (32.0-36.0); Mean Corpuscular Volume 80.3 fL (80.0-100.0); Neutrophils # (auto) 3.1 uL; Neutrophils % (auto) 57.3 % (37.0-80.0); Platelet Count (auto) 356 10^3/uL (140-450); Red Blood Cells 4.19 10^6/uL (4.0-5.20); Red Cell Distribution Width 15.3 % (11.8-14.3)
[2018-02-08] MEDS: Ensure Enlive Strawberry 8oz Bottle PO SCH ×2 (08:00→12:00)
[2018-02-08 08:57] VITALS: BP 102/83
[2018-02-08] MEDS: B-COMPLEX W/ C & FOLIC ACID(NEPHROVITE TAB) PO SCH (10:21)
[2018-02-08] MEDS: MULTIPLE VITAMIN TAB PO SCH (10:21)
[2018-02-08] MEDS: lamoTRIgine 100 MG TAB PO SCH (10:22)
[2018-02-08] MEDS: LEVETIRACETAM 500 MG TAB PO SCH (10:22)
[2018-02-08 12:00] VITALS: BP 119/88
[2018-02-08] MEDS: HYDROcodone-ACET 5/325MG TAB PO PRN (12:12)
[2018-02-08] MEDS ORDERED: KEP500T PO (13:56)
[2018-02-08] MEDS ORDERED: LAM100T PO (13:56)
[2018-02-08] MEDS ORDERED: FER325T PO (13:56)
== END 2018-02-08 15:20 | disposition left against medical advice (07) | DRG 53 ==
LOC: EDBD 10:51 → ER 10:56 → TELE 10:57 → TELE-CENTR 17:56 → TELE-WESTW 19:25
PROVIDERS: ADMIT Internal Medicine; ATTEND Internal Medicine
DX: G40.909 Epilepsy, unspecified, not intractable, without status epilepticus (principal); E44.0 Moderate protein-calorie malnutrition; Z68.42 Body mass index [BMI] 45.0-49.9, adult; E88.09 Other disorders of plasma-protein metabolism, not elsewhere classified; E83.51 Hypocalcemia; N39.0 Urinary tract infection, site not specified; D63.8 Anemia in other chronic diseases classified elsewhere; E66.9 Obesity, unspecified; E03.9 Hypothyroidism, unspecified; Z53.21 Procedure and treatment not carried out due to patient leaving prior to being seen by health care provider; E87.6 Hypokalemia; F43.22 Adjustment disorder with anxiety; Z74.01 Bed confinement status; Z82.49 Family history of ischemic heart disease and other diseases of the circulatory system; Z83.3 Family history of diabetes mellitus
CPT/HCPCS: 36415; 70450; 71045; 80048; 80053; 80307; 81001; 83540; 83735; 84484; 85025; 85610; 85730; 87081; 87086; 93005; 93306; 93886; 94761; 96360; 97116; 97163; J0696

== ENCOUNTER 2018-12-23 17:21 | Inpatient (IN) | payer MEDICAID, OTHER ==
[~2018-12-23] VITALS: Ht 167.6 cm; Wt 117.0 kg
[~2018-12-23 17:21] MED LIST changes: -ESLI1TAB4 PO; -LAM100T PO; -LEVE500T22 PO; +NITR100C44 PO
[2018-12-23] MEDS ORDERED: LEVETIRACETAM INJ 1,000 MG in D5W 5% 100 ML IV ONE (20:30)
[2018-12-23] MEDS ORDERED: LORazepam 2MG/ML-1ML VIAL IV ONE (20:30)
[2018-12-23 22:27] LABS: Albumin 3.3 g/dL (3.4-5.0); Calcium 8.4 mg/dL (8.5-10.1); Potassium 3.7 mmol/L (3.5-5.1)
[2018-12-23 22:28] LABS: Basophils # (auto) 0 uL; Eosinophils # (auto) 0.1 uL; Eosinophils % (auto) 1.6 % (0.0-7.0); Hematocrit 33.5 % (36.0-46.0); Hemoglobin 10.9 g/dL (12.2-16.2); Mean Corpuscular Hgb Conc. 32.5 g/dL (32.0-36.0); Monocytes # (auto) 0.5 uL; Red Cell Distribution Width 16.1 % (11.8-14.3)
[2018-12-23 22:30] LABS: Basophils % (auto) 0.7 % (0.0-2.0); Lymphocytes # (auto) 1.5 uL; Lymphocytes % (auto) 25.5 % (10.0-50.0); Mean Corpuscular Hemoglobin 25.1 pg (28.0-32.0); Mean Corpuscular Volume 77.4 fL (80.0-100.0); Neutrophils # (auto) 3.8 uL; Neutrophils % (auto) 64.2 % (37.0-80.0); Platelet Count (auto) 365 10^3/uL (140-450); Red Blood Cells 4.33 10^6/uL (4.0-5.20); White Blood Cell 5.9 10^3/uL (4.4-10.8)
[2018-12-23 22:30] LABS: BUN/Creatinine Ratio 13.9; Bilirubin, Total 0.2 mg/dL (0.2-1.0); Total Protein 7.4 g/dL (6.4-8.2)
[2018-12-23 22:41] LABS: Urine Bacteria NONE SEEN /hpf (None Seen); Urine Blood Negative /uL (Negative); Urine Specific Gravity 1.008 (1.001-1.035); Urine WBC 1 /hpf (0 - 5)
[2018-12-23 22:43] LABS: Urine Pregnacy Test Negative (Negative)
[2018-12-23 22:54] LABS: Alcohol, Urine < 3.0 mg/dL (0-5); Amphetamine Screen, Urine NEGATIVE (NEGATIVE); Barbiturate Scree,Urine NEGATIVE (NEGATIVE); Benzodiazephine Screen, Urine NEGATIVE (NEGATIVE); Cannabinoid Screen, Urine NEGATIVE (NEGATIVE); Cocaine Screen, Urine NEGATIVE (NEGATIVE); Opiate Scree,Urine NEGATIVE (NEGATIVE); Phencyclidine Screen, Urine NEGATIVE (NEGATIVE)
[2018-12-24] MEDS ORDERED: LORazepam 2MG/ML-1ML VIAL IV PRN (00:45)
[2018-12-24] MEDS ORDERED: TEMAZEPAM 15 MG CAP PO PRN (00:45)
[2018-12-24] MEDS ORDERED: NITROGLYCERIN 0.4 MG SL TAB SL PRN (00:45)
[2018-12-24] MEDS ORDERED: ONDANSETRON HCL 4 MG/2 ML VIAL IV PRN (00:45)
[2018-12-24] MEDS ORDERED: MORPHINE SULF INJ 2 MG/ML SYRINGE 1ML IV PRN (00:45)
[2018-12-24] MEDS: lamoTRIgine 100 MG TAB PO SCH ×2 (09:24→23:14)
[2018-12-24] MEDS: FAMOTIDINE 20 MG TAB PO SCH ×2 (09:24→23:15)
[2018-12-24] MEDS: ACETAMINOPHEN 325 MG TAB PO PRN ×2 (09:27→19:28)
[2018-12-24] MEDS: LEVETIRACETAM INJ 1,000 MG in D5W 5% 100 ML IV SCH ×2 (09:45→22:00)
[2018-12-24 13:10] VITALS: BP 120/68
[2018-12-24 17:18] VITALS: BP 121/71
--- NOTE | 2018-12-24 19:30 | NUR ---
OPENING SHIFT NOTE Assumed care of patient. A&Ox4. currently on room air with no s/s of distress or SOB. Patient reports 6/10 headache, for which Tylenol was provided as ordered. Astudillo catheter is in place and draining to gravity. 1100ml yellow urine removed from catheter bag. 20 gauge IV in left hand. Flushed with NS and is patent. Dressing reinforced. Patient encouraged to call for assistance if needed. Bec left in low locked position, side rails padded and call boss is within reach. Will continue to monitor PRN.
[2018-12-24 22:00] VITALS: BP 97/52
[2018-12-24] MEDS ORDERED: LEVETIRACETAM 500 MG/5ML INJ IV ONE (23:29)
--- NOTE | 2018-12-25 | NUR ---
ROUNDS Patient is resting in bed on right side. No c/o pain. No s/s of distress noted. IV dressing reinforced . Bed is in low locked position and call light is within reach. Will continue to monitor PRN.
[2018-12-25] MEDS ORDERED: BRIV1TAB7 PO (03:51)
[2018-12-25 05:00] VITALS: BP 100/58
[2018-12-25 05:42] LABS: Basophils # (auto) 0 uL; Eosinophils # (auto) 0.2 uL; Hemoglobin 10.9 g/dL (12.2-16.2); Lymphocytes # (auto) 1.6 uL; Monocytes # (auto) 0.6 uL; White Blood Cell 6.2 10^3/uL (4.4-10.8)
[2018-12-25 05:45] LABS: Basophils % (auto) 0.4 % (0.0-2.0); Eosinophils % (auto) 2.8 % (0.0-7.0); Hematocrit 33.3 % (36.0-46.0); Lymphocytes % (auto) 25.2 % (10.0-50.0); Mean Corpuscular Hemoglobin 25.1 pg (28.0-32.0); Mean Corpuscular Hgb Conc. 32.7 g/dL (32.0-36.0); Mean Corpuscular Volume 76.8 fL (80.0-100.0); Neutrophils # (auto) 3.8 uL; Neutrophils % (auto) 61.6 % (37.0-80.0); Platelet Count (auto) 381 10^3/uL (140-450); Red Blood Cells 4.34 10^6/uL (4.0-5.20); Red Cell Distribution Width 16.1 % (11.8-14.3)
[2018-12-25 06:10] LABS: Potassium 3.8 mmol/L (3.5-5.1)
[2018-12-25 06:14] LABS: BUN/Creatinine Ratio 14.8; Calcium 8.3 mg/dL (8.5-10.1)
[2018-12-25 08:51] VITALS: BP 126/78
[2018-12-25] MEDS: LEVETIRACETAM INJ 1,000 MG in D5W 5% 100 ML IV SCH (09:55)
[2018-12-25] MEDS: lamoTRIgine 100 MG TAB PO SCH ×2 (09:55→21:49)
[2018-12-25] MEDS: FAMOTIDINE 20 MG TAB PO SCH ×2 (09:56→21:49)
[2018-12-25 12:48] VITALS: BP 113/70
[2018-12-25 16:44] VITALS: BP 115/66
[2018-12-25] MEDS: ACETAMINOPHEN 325 MG TAB PO PRN (19:24)
--- NOTE | 2018-12-25 19:45 | NUR ---
OPENING SHIFT NOTE Assumed care of patient. A&Ox4. Currently on room air with no s/s of SOB or distress. Patient reports 8/10 headache, for which Tylenol 650mg was provided. 20 gauge IV in left hand flushed with NS and is patent. Patient tolerates well. Astudillo catheter in place and draining to gravity. Patient instructed to call for assistance if needed. Verbalizes understanding. Bed left in low locked position and side rails padded for safety. Will continue to monitor PRN.
[2018-12-25 22:00] VITALS: BP 102/49
[2018-12-25] MEDS: BRIVARACETAM 100 MG PO SCH (22:00)
--- NOTE | 2018-12-26 | NUR ---
HOSPITALIST PAGED Paged hospitalist to request stool softener d/t Patient report of no Bm x4 days. Bowel sounds are present in all four quadrants. Left lower quadrant is tender to palpation and firm.
--- NOTE | 2018-12-26 01:20 | NUR ---
NEW ORDER Spoke with On-call hospitalist Nu Chaudhary N.P. Received new order for Colace 100mg BID.
[2018-12-26 05:00] VITALS: BP 109/55
[2018-12-26 05:57] LABS: BUN/Creatinine Ratio 18.2; Calcium 8.3 mg/dL (8.5-10.1)
[2018-12-26 06:30] LABS: Basophils # (auto) 0 uL; Basophils % (auto) 0.6 % (0.0-2.0); Eosinophils # (auto) 0.3 uL; Eosinophils % (auto) 4.6 % (0.0-7.0); Hemoglobin 11.2 g/dL (12.2-16.2); Lymphocytes # (auto) 1.8 uL; Mean Corpuscular Hemoglobin 25.4 pg (28.0-32.0); Mean Corpuscular Volume 76.9 fL (80.0-100.0); Monocytes # (auto) 0.7 uL; Monocytes % (auto) 12.1 % (0.0-12.0); Neutrophils # (auto) 3.2 uL; Neutrophils % (auto) 52.7 % (37.0-80.0); Nucleated Red Blood Cells % 0.2 %; Platelet Count (auto) 375 10^3/uL (140-450); Red Blood Cells 4.43 10^6/uL (4.0-5.20); Red Cell Distribution Width 15.7 % (11.8-14.3)
[2018-12-26 08:30] VITALS: BP 108/63
[2018-12-26] MEDS: BRIVARACETAM 100 MG PO SCH ×2 (10:00→21:56)
[2018-12-26] MEDS: DOCUSATE SOD 100 MG CAP PO SCH (10:00)
[2018-12-26] MEDS: FAMOTIDINE 20 MG TAB PO SCH ×2 (10:04→21:56)
[2018-12-26] MEDS: lamoTRIgine 100 MG TAB PO SCH ×2 (10:04→21:56)
[2018-12-26] MEDS: ACETAMINOPHEN 325 MG TAB PO PRN (10:05)
[2018-12-26 12:30] VITALS: BP 103/51
[2018-12-26 17:13] VITALS: BP 114/72
--- NOTE | 2018-12-26 19:30 | NUR ---
OPENING SHIFT NOTE Assumed care of patient, who is A&O x4 at this time. Currently on room air with no s/s of SOB or distress. Patient denies pain at this time. Patient is ambulating to the bathroom without the use of assistive devices, which is her baseline. Discussed POC with patient who verbalizes understanding. Patient encouraged to call for assistance if needed. Bed left in low locked position with side rails padded for safety. Call boss is within reach. Will continue to monitor PRN.
[2018-12-26 22:00] VITALS: BP 105/47
[2018-12-27 05:00] VITALS: BP 127/64
[2018-12-27 06:25] LABS: BUN/Creatinine Ratio 18.2; Basophils # (auto) 0 uL; Calcium 8.4 mg/dL (8.5-10.1); Eosinophils # (auto) 0.3 uL; Hemoglobin 10.9 g/dL (12.2-16.2); Mean Corpuscular Hemoglobin 25.2 pg (28.0-32.0); Neutrophils # (auto) 2.8 uL
[2018-12-27 06:28] LABS: Basophils % (auto) 0.4 % (0.0-2.0); Eosinophils % (auto) 5.3 % (0.0-7.0); Hematocrit 33.4 % (36.0-46.0); Lymphocytes # (auto) 1.4 uL; Lymphocytes % (auto) 26.4 % (10.0-50.0); Mean Corpuscular Hgb Conc. 32.8 g/dL (32.0-36.0); Mean Corpuscular Volume 76.8 fL (80.0-100.0); Monocytes # (auto) 0.7 uL; Monocytes % (auto) 13.6 % (0.0-12.0); Neutrophils % (auto) 54.3 % (37.0-80.0); Nucleated Red Blood Cells % 0.1 %; Platelet Count (auto) 369 10^3/uL (140-450); Red Blood Cells 4.35 10^6/uL (4.0-5.20); Red Cell Distribution Width 15.6 % (11.8-14.3); White Blood Cell 5.2 10^3/uL (4.4-10.8)
--- NOTE | 2018-12-27 08:09 | NUR ---
Neurologist at bedside MD Hudson aware of patient's status including pt c/o "no feeling to left arm". Per MD, pt is cleared for d/c per hospitalist.
[2018-12-27 09:00] VITALS: BP 105/61
--- NOTE | 2018-12-27 09:41 | NUR ---
Spoke to Hospitalist MD Stern aware of patient's status, including labs VS. Awaiting new orders for d/c today.
[2018-12-27] MEDS: lamoTRIgine 100 MG TAB PO SCH (10:03)
[2018-12-27] MEDS: FAMOTIDINE 20 MG TAB PO SCH (10:03)
[2018-12-27] MEDS: DOCUSATE SOD 100 MG CAP PO SCH ×2 (10:03→10:05)
[2018-12-27] MEDS: BRIVARACETAM 100 MG PO SCH (10:04)
[2018-12-27] MEDS: ACETAMINOPHEN 325 MG TAB PO PRN (10:09)
--- NOTE | 2018-12-27 12:00 | NUR ---
Discharge instructions given as ordered. Encourage to follow up with PMD as instructed, patient states she already has an appointment at [facility] for neurology. All questions and concerns addressed. Patient verbalized understanding. Medication reconciliation form completed and copy given to patient. Home medications held in Pharmacy returned to patient. IV removed with catheter intact, pressure dressing applied. Telemetry unit returned to [facility]. Patient awaiting picker / packer.
--- NOTE | 2018-12-27 12:58 | NUR ---
Patient left with all personal belongings. Per pt's room mate, pt "walked out" in no distress
[2018-12-27 13:00] VITALS: BP 109/53
== END 2018-12-27 17:58 | disposition home or self-care (01) | DRG 53 ==
LOC: ER 17:21 → EDBD 17:21 → TELE 17:22 → MERGE 17:22 → TELE-WESTW 12-24 10:16
PROVIDERS: ADMIT Nurse Practitioner; ATTEND Internal Medicine
DX: G40.909 Epilepsy, unspecified, not intractable, without status epilepticus (principal); E44.1 Mild protein-calorie malnutrition; G93.89 Other specified disorders of brain; E66.01 Morbid (severe) obesity due to excess calories; D50.9 Iron deficiency anemia, unspecified; E03.9 Hypothyroidism, unspecified; F41.9 Anxiety disorder, unspecified; I10 Essential (primary) hypertension; Z79.899 Other long term (current) drug therapy; Z82.49 Family history of ischemic heart disease and other diseases of the circulatory system; Z83.3 Family history of diabetes mellitus; Z68.41 Body mass index [BMI] 40.0-44.9, adult
CPT/HCPCS: 36415; 70450; 72125; 80048; 80053; 80307; 81001; 81025; 82150; 82542; 83690; 84702; 85025; 96365; 96366; 96375; 97116; 97163; 97530; G0378; J7060

== ENCOUNTER 2019-02-03 11:41 | Emergency (ER) | payer MEDICAID ==
[~2019-02-03] VITALS: Ht 167.6 cm; Wt 90.7 kg
[~2019-02-03 11:41] MED LIST changes: +BRIV1TAB7 PO
[2019-02-03] MEDS ORDERED: LORazepam 2MG/ML-1ML VIAL IV ONE (12:00)
[2019-02-03] MEDS ORDERED: KETOROLAC TROMETH 15 mg/ml 1ML VL IV ONE (12:00)
[2019-02-03 12:12] LABS: Basophils # (auto) 0 uL; Eosinophils # (auto) 0.1 uL; Neutrophils # (auto) 2.8 uL; Red Blood Cells 4.12 10^6/uL (4.0-5.20)
[2019-02-03 12:13] LABS: Basophils % (auto) 0.4 % (0.0-2.0); Eosinophils % (auto) 1.7 % (0.0-7.0); Hemoglobin 10.1 g/dL (12.2-16.2); Lymphocytes % (auto) 24.4 % (10.0-50.0); Mean Corpuscular Hemoglobin 24.5 pg (28.0-32.0); Mean Corpuscular Hgb Conc. 32.5 g/dL (32.0-36.0); Mean Corpuscular Volume 75.3 fL (80.0-100.0); Monocytes # (auto) 0.3 uL; Monocytes % (auto) 8.1 % (0.0-12.0); Neutrophils % (auto) 65.4 % (37.0-80.0); Platelet Count (auto) 295 10^3/uL (140-450); Red Cell Distribution Width 16.5 % (11.8-14.3); White Blood Cell 4.2 10^3/uL (4.4-10.8)
[2019-02-03 12:31] LABS: Albumin 3.2 g/dL (3.4-5.0); Anion Gap 6 (5-15); Blood Urea Nitrogen 11 mg/dL (7-18); Calcium 8.1 mg/dL (8.5-10.1); Carbon Dioxide 26 mmol/L (21-32); Chloride 110 mmol/L (98-107); Glucose 112 mg/dL (74-106); Magnesium 2.1 mg/dL (1.6-2.6); Potassium 3.4 mmol/L (3.5-5.1); Sodium 142 mmol/L (136-145)
[2019-02-03 12:37] LABS: Alanine Aminotransferase 16 U/L (13-56); Alkaline Phosphatase 125 U/L (45-117); Aspartate Aminotransferase 12 U/L (15-37); BUN/Creatinine Ratio 13.6; Bilirubin, Total 0.2 mg/dL (0.2-1.0); GFR African American 100 mL/min; GFR Non-African American 83 mL/min; Total Protein 7.4 g/dL (6.4-8.2)
[2019-02-03] MEDS ORDERED: KETOROLAC TROMETH 60MG/2ML VIAL IM ONE (15:00)
[2019-02-03 15:10] VITALS: BP 119/80
== END 2019-02-03 15:53 | disposition home or self-care (01) ==
LOC: ER 11:41 → EDBD 11:41 → ER 15:53
DX: R07.89 Other chest pain (principal); I10 Essential (primary) hypertension; E07.9 Disorder of thyroid, unspecified; Z79.899 Other long term (current) drug therapy
CPT/HCPCS: 36415; 71046; 80053; 83735; 84484; 85025; 93005; 96372; 99284; J1885

== ENCOUNTER 2021-05-06 12:00 | Inpatient (IN) | payer MEDICAID ==
[~2021-05-06] VITALS: Ht 167.6 cm; Wt 120.0 kg
[~2021-05-06 12:00] MED LIST changes: +NITR-87 PO; -NITR100C44 PO
[2021-05-06 15:56] LABS: Basophils # (auto) 0 10 ^3/uL (0-0.2); Eosinophils # (auto) 0 10 ^3/uL (0-0.8); Lymphocytes # (auto) 1.5 10 ^3/uL (0.4-5.4); Neutrophils % (auto) 64.8 % (37.0-80.0)
[2021-05-06 15:59] LABS: Basophils % (auto) 0.5 % (0.0-2.0); Eosinophils % (auto) 0.8 % (0.0-7.0); Hematocrit 35.6 % (36.0-46.0); Hemoglobin 11.6 g/dL (12.2-16.2); Lymphocytes % (auto) 23.6 % (10.0-50.0); Mean Corpuscular Hemoglobin 23.7 pg (28.0-32.0); Mean Corpuscular Hgb Conc. 32.4 g/dL (32.0-36.0); Mean Corpuscular Volume 73.2 fL (80.0-100.0); Monocytes # (auto) 0.6 10 ^3/uL (0-1.3); Monocytes % (auto) 10.3 % (0.0-12.0); Nucleated Red Blood Cells % 0.1 %; Red Blood Cells 4.87 10^6/uL (4.0-5.20); Red Cell Distribution Width 16.3 % (11.8-14.3); White Blood Cell 6.2 10^3/uL (4.4-10.8)
[2021-05-06 16:20] LABS: Albumin 3.5 g/dL (3.4-5.0); Anion Gap 5 (5-15); Blood Urea Nitrogen 10 mg/dL (7-18); Calcium 8.6 mg/dL (8.5-10.1); Carbon Dioxide 25 mmol/L (21-32); Chloride 110 mmol/L (98-107); Glucose 99 mg/dL (74-106); Potassium 4.4 mmol/L (3.5-5.1); Sodium 140 mmol/L (136-145)
[2021-05-06 16:22] LABS: Alanine Aminotransferase 17 U/L (13-56); Aspartate Aminotransferase 20 U/L (15-37); BUN/Creatinine Ratio 12.5; Blood Alcohol < 3.0 mg/dL (0-5); GFR African American 101 mL/min; GFR Non-African American 83 mL/min
[2021-05-06 16:25] LABS: Alkaline Phosphatase 124 U/L (45-117); Bilirubin, Total 0.3 mg/dL (0.2-1.0); Total Protein 7.9 g/dL (6.4-8.2)
[2021-05-06] MEDS ORDERED: TEMAZEPAM 15 MG CAP PO PRN (21:15)
[2021-05-06] MEDS ORDERED: ACETAMINOPHEN 325 MG TAB PO PRN (21:15)
[2021-05-06] MEDS ORDERED: LORazepam 2MG/ML-1ML VIAL IV PRN (21:15)
[2021-05-06] MEDS ORDERED: ONDANSETRON HCL 4 MG/2 ML VIAL IV PRN (21:15)
[2021-05-06] MEDS ORDERED: BRIVARACETAM 100 MG PO SCH (22:00)
[2021-05-06] MEDS ORDERED: lamoTRIgine 100 MG TAB PO SCH (22:00)
[2021-05-07] MEDS: LORazepam 2MG/ML-1ML VIAL IV ONE ×2 (00:15→00:28)
[2021-05-07 02:03] LABS: Alcohol, Urine < 3.0 mg/dL (0-10); Amphetamine Screen, Urine NEGATIVE (NEGATIVE); Barbiturate Scree,Urine NEGATIVE (NEGATIVE); Benzodiazephine Screen, Urine NEGATIVE (NEGATIVE); Cannabinoid Screen, Urine NEGATIVE (NEGATIVE); Cocaine Screen, Urine NEGATIVE (NEGATIVE); Opiate Scree,Urine NEGATIVE (NEGATIVE); Phencyclidine Screen, Urine NEGATIVE (NEGATIVE)
[2021-05-07 02:09] LABS: Urine Bacteria NONE SEEN /hpf (None Seen); Urine Blood 1+ /uL (Negative); Urine Specific Gravity 1.033 (1.001-1.035); Urine WBC 5 /hpf (0 - 5)
[2021-05-07 03:51] LABS: Basophils # (auto) 0 10 ^3/uL (0-0.2); Basophils % (auto) 0.3 % (0.0-2.0); Eosinophils # (auto) 0.1 10 ^3/uL (0-0.8); Mean Corpuscular Hgb Conc. 31.9 g/dL (32.0-36.0); Monocytes # (auto) 0.8 10 ^3/uL (0-1.3)
[2021-05-07 03:53] LABS: Eosinophils % (auto) 0.9 % (0.0-7.0); Hematocrit 34.5 % (36.0-46.0); Lymphocytes % (auto) 22.6 % (10.0-50.0); Mean Corpuscular Hemoglobin 23.4 pg (28.0-32.0); Mean Corpuscular Volume 73.4 fL (80.0-100.0); Monocytes % (auto) 8.5 % (0.0-12.0); Neutrophils # (auto) 6.1 10 ^3/uL (1.6-8.6); Neutrophils % (auto) 67.7 % (37.0-80.0); Nucleated Red Blood Cells % 0.1 %; Red Cell Distribution Width 16.5 % (11.8-14.3)
[2021-05-07 04:11] LABS: Calcium 8.6 mg/dL (8.5-10.1); Potassium 3.6 mmol/L (3.5-5.1)
[2021-05-07] MEDS ORDERED: BRIVARACETAM 150 MG PO SCH (08:30)
[2021-05-07] MEDS: PANTOPRAZOLE 40 MG TAB PO SCH (09:29)
[2021-05-07] MEDS: lamoTRIgine 100 MG TAB PO SCH ×2 (09:30→21:24)
[2021-05-07 13:00] VITALS: BP 115/66
[2021-05-07] MEDS ORDERED: LAMO200T34 PO ×2 (13:05)
[2021-05-07 22:00] VITALS: BP 114/50
[2021-05-07] MEDS ORDERED: BRIVARACETAM 200 MG PO SCH (22:00)
[2021-05-08 04:49] VITALS: BP 107/61
[2021-05-08] MEDS: lamoTRIgine 100 MG TAB PO SCH ×2 (06:20→21:46)
[2021-05-08 09:00] VITALS: BP 118/57
[2021-05-08] MEDS: PANTOPRAZOLE 40 MG TAB PO SCH (09:09)
[2021-05-08] MEDS ORDERED: LORazepam 2MG/ML-1ML VIAL IV ONE (10:30)
[2021-05-08 13:00] VITALS: BP 104/65
[2021-05-08] MEDS: DOCUSATE SOD 100 MG CAP PO PRN (17:37)
[2021-05-08 21:57] VITALS: BP 106/63
[2021-05-09 05:00] VITALS: BP 110/52
[2021-05-09] MEDS: lamoTRIgine 100 MG TAB PO SCH ×2 (06:48→21:57)
[2021-05-09 08:00] VITALS: BP 101/66
[2021-05-09 09:00] VITALS: BP 101/66
[2021-05-09] MEDS: DOCUSATE SOD 100 MG CAP PO PRN (10:03)
[2021-05-09] MEDS: PANTOPRAZOLE 40 MG TAB PO SCH (10:03)
[2021-05-09 13:00] VITALS: BP 119/75
[2021-05-09 16:39] VITALS: BP 106/57
[2021-05-09 22:00] VITALS: BP 138/77
[2021-05-10 05:00] VITALS: BP 111/63
[2021-05-10] MEDS: lamoTRIgine 100 MG TAB PO SCH (06:59)
[2021-05-10 08:40] VITALS: BP 87/58
[2021-05-10] MEDS: PANTOPRAZOLE 40 MG TAB PO SCH (10:49)
[2021-05-10 12:40] VITALS: BP 92/50
== END 2021-05-10 13:35 | disposition home or self-care (01) | DRG 53 ==
LOC: EDBD 12:00 → ER 12:00 → OVERFLOW 21:09 → WEST WING 05-07 09:04
PROVIDERS: ADMIT Nurse Practitioner; ATTEND Family Medicine
DX: G40.401 Other generalized epilepsy and epileptic syndromes, not intractable, with status epilepticus (principal); E03.9 Hypothyroidism, unspecified; E66.01 Morbid (severe) obesity due to excess calories; R51.9 Headache, unspecified; Z20.822 Contact with and (suspected) exposure to COVID-19; I10 Essential (primary) hypertension; Z68.41 Body mass index [BMI] 40.0-44.9, adult; Z83.3 Family history of diabetes mellitus; Z80.9 Family history of malignant neoplasm, unspecified; Z79.899 Other long term (current) drug therapy; Z82.49 Family history of ischemic heart disease and other diseases of the circulatory system
CPT/HCPCS: 36415; 70450; 70551; 71045; 80048; 80053; 80307; 80320; 81001; 85025; 87426; 93005; 95819; 96374; 96376; 99291; G0378

== ENCOUNTER 2021-08-06 10:45 | Emergency (ER) | payer MEDICAID ==
[~2021-08-06] VITALS: Ht 170.2 cm; Wt 108.0 kg
[~2021-08-06 10:45] MED LIST changes: -FOLI1TAB6 PO; +LAMO200T34 PO
[2021-08-06] MEDS ORDERED: HYDROcodone-ACET 5/325MG TAB PO ONE (11:15)
[2021-08-06 11:43] LABS: Basophils # (auto) 0 10 ^3/uL (0-0.2); Lymphocytes # (auto) 1.2 10 ^3/uL (0.4-5.4); Mean Corpuscular Volume 69.2 fL (80.0-100.0); Monocytes # (auto) 0.4 10 ^3/uL (0-1.3); White Blood Cell 5.7 10^3/uL (4.4-10.8)
[2021-08-06 11:46] LABS: Basophils % (auto) 0.3 % (0.0-2.0); Eosinophils # (auto) 0 10 ^3/uL (0-0.8); Eosinophils % (auto) 0.8 % (0.0-7.0); Hematocrit 30.1 % (36.0-46.0); Hemoglobin 9.8 g/dL (12.2-16.2); Mean Corpuscular Hemoglobin 22.5 pg (28.0-32.0); Mean Corpuscular Hgb Conc. 32.5 g/dL (32.0-36.0); Monocytes % (auto) 7.7 % (0.0-12.0); Neutrophils % (auto) 70.2 % (37.0-80.0); Nucleated Red Blood Cells % 0.2 %; Red Blood Cells 4.35 10^6/uL (4.0-5.20); Red Cell Distribution Width 16.6 % (11.8-14.3)
[2021-08-06 11:58] LABS: Potassium 3.6 mmol/L (3.5-5.1)
[2021-08-06 12:22] LABS: Albumin 3.5 g/dL (3.4-5.0); BUN/Creatinine Ratio 15.9; Bilirubin, Total 0.4 mg/dL (0.2-1.0); Calcium 8.5 mg/dL (8.5-10.1); Total Protein 7.7 g/dL (6.4-8.2)
[2021-08-06 13:51] LABS: Urine Bacteria FEW /hpf (None Seen); Urine Blood Negative /uL (Negative); Urine Mucus FEW (None Seen); Urine Specific Gravity 1.022 (1.001-1.035); Urine WBC 15 /hpf (0 - 5)
[2021-08-06] MEDS ORDERED: NITR-87 PO (14:06)
[2021-08-06 14:09] VITALS: BP 123/58
== END 2021-08-06 14:25 | disposition home or self-care (01) ==
LOC: ER 10:45
DX: R56.9 Unspecified convulsions (principal); N39.0 Urinary tract infection, site not specified; I10 Essential (primary) hypertension; E03.9 Hypothyroidism, unspecified; Z79.899 Other long term (current) drug therapy
CPT/HCPCS: 36415; 70450; 71045; 73030; 80053; 81001; 85025

== ENCOUNTER 2021-08-17 11:12 | Emergency (ER) | payer MEDICAID ==
[~2021-08-17] VITALS: Ht 167.6 cm; Wt 108.0 kg
[2021-08-17] MEDS ORDERED: ACETAMINOPHEN 325 MG TAB PO ONE ×2 (12:15→17:15)
[2021-08-17 17:19] VITALS: BP 118/63
== END 2021-08-17 17:25 | disposition home or self-care (01) ==
LOC: ER 11:12
DX: M25.512 Pain in left shoulder (principal); I10 Essential (primary) hypertension; E03.9 Hypothyroidism, unspecified; Z79.899 Other long term (current) drug therapy
CPT/HCPCS: 73020; 73030

== ENCOUNTER 2021-12-01 17:20 | Emergency (ER) | payer MEDICAID ==
[~2021-12-01] VITALS: Ht 160 cm; Wt 104.3 kg
[2021-12-01 17:20] VITALS: BP 118/68
[2021-12-01 18:39] LABS: Basophils # (auto) 0 10 ^3/uL (0-0.2); Basophils % (auto) 0.5 % (0.0-2.0); Eosinophils # (auto) 0.2 10 ^3/uL (0-0.8); Eosinophils % (auto) 3.1 % (0.0-7.0); Hematocrit 31.1 % (36.0-46.0); Hemoglobin 10.3 g/dL (12.2-16.2); Lymphocytes # (auto) 1.1 10 ^3/uL (0.4-5.4); Mean Corpuscular Hemoglobin 23.1 pg (28.0-32.0); Mean Corpuscular Hgb Conc. 33.1 g/dL (32.0-36.0); Mean Corpuscular Volume 69.9 fL (80.0-100.0); Monocytes # (auto) 0.5 10 ^3/uL (0-1.3); Monocytes % (auto) 8.6 % (0.0-12.0); Neutrophils # (auto) 3.8 10 ^3/uL (1.6-8.6); Neutrophils % (auto) 67.8 % (37.0-80.0); Red Blood Cells 4.46 10^6/uL (4.0-5.20); Red Cell Distribution Width 18.5 % (11.8-14.3); White Blood Cell 5.7 10^3/uL (4.4-10.8)
[2021-12-01] MEDS ORDERED: LORazepam 2MG/ML-1ML VIAL IV ONE (19:00)
[2021-12-01 19:02] LABS: Albumin 3.3 g/dL (3.4-5.0); Calcium 8.2 mg/dL (8.5-10.1); Potassium 3.6 mmol/L (3.5-5.1)
[2021-12-01 19:06] LABS: BUN/Creatinine Ratio 11.1; Bilirubin, Total 0.4 mg/dL (0.2-1.0); Total Protein 7.8 g/dL (6.4-8.2)
== END 2021-12-01 22:52 | disposition home or self-care (01) ==
LOC: ER 17:20 → EDBD 17:20 → ER 22:52
DX: R56.9 Unspecified convulsions (principal); I10 Essential (primary) hypertension
CPT/HCPCS: 36415; 70450; 80053; 85025; 93005

== ENCOUNTER 2022-03-10 20:44 | Emergency (ER) | payer MEDICAID ==
[~2022-03-10] VITALS: Ht 167.6 cm; Wt 125.0 kg
[2022-03-10] MEDS ORDERED: SODIUM CHLORIDE 0.9% 1,000 ML IV ONE ×2 (21:00)
[2022-03-10 22:31] LABS: Basophils # (auto) 0 10 ^3/uL (0-0.2); Basophils % (auto) 0.4 % (0.0-2.0); Eosinophils # (auto) 0 10 ^3/uL (0-0.8); Eosinophils % (auto) 0.3 % (0.0-7.0); Hemoglobin 10.3 g/dL (12.2-16.2); Monocytes # (auto) 0.4 10 ^3/uL (0-1.3); Neutrophils # (auto) 4.2 10 ^3/uL (1.6-8.6); White Blood Cell 5.7 10^3/uL (4.4-10.8)
[2022-03-10 22:32] LABS: Hematocrit 32.6 % (36.0-46.0); Lymphocytes # (auto) 1.1 10 ^3/uL (0.4-5.4); Lymphocytes % (auto) 18.6 % (10.0-50.0); Mean Corpuscular Hemoglobin 22.6 pg (28.0-32.0); Mean Corpuscular Hgb Conc. 31.5 g/dL (32.0-36.0); Mean Corpuscular Volume 71.7 fL (80.0-100.0); Monocytes % (auto) 6.6 % (0.0-12.0); Neutrophils % (auto) 74.1 % (37.0-80.0); Red Blood Cells 4.55 10^6/uL (4.0-5.20); Red Cell Distribution Width 18.5 % (11.8-14.3)
[2022-03-10 22:49] LABS: Albumin 3.6 g/dL (3.4-5.0); Calcium 8.4 mg/dL (8.5-10.1); Potassium 3.5 mmol/L (3.5-5.1)
[2022-03-10 22:52] LABS: BUN/Creatinine Ratio 10.8; Bilirubin, Total 0.4 mg/dL (0.2-1.0); Total Protein 7.5 g/dL (6.4-8.2)
[2022-03-10 23:05] LABS: Urine Bacteria NONE SEEN /hpf (None Seen); Urine Blood Negative /uL (Negative); Urine Specific Gravity 1.007 (1.001-1.035); Urine WBC 8 /hpf (0 - 5)
[2022-03-10] MEDS ORDERED: NITR-87 PO (23:35)
[2022-03-11] MEDS ORDERED: cefTRIAXone 1GM/50ML D5W 50 ML IV ONE
[2022-03-11 01:10] VITALS: BP 130/65
== END 2022-03-11 01:40 | disposition home or self-care (01) ==
LOC: EDBD 20:44 → ER 20:45
DX: R56.9 Unspecified convulsions (principal); N39.0 Urinary tract infection, site not specified; R41.82 Altered mental status, unspecified; I10 Essential (primary) hypertension
CPT/HCPCS: 36415; 70450; 71045; 80053; 81001; 84484; 85025; 96361; 96365; 99285; J0696; J7030; 93005

== ENCOUNTER 2024-02-24 15:22 | Inpatient (IN) | payer MEDICAID ==
[~2024-02-24] VITALS: Ht 167.6 cm; Wt 118.1 kg
[~2024-02-24 15:22] MED LIST changes: +CHOL20007 PO; +CLOB20TA3 PO
[2024-02-24 16:14] VITALS: PULSE 75; RESP 17; O2SAT 98
[2024-02-24] MEDS: SODIUM CHLORIDE 0.9% 1,000 ML IV ONE (17:01)
[2024-02-24 17:11] LABS: Basophils # (auto) 0 10 ^3/uL (0-0.2); Basophils % (auto) 0.5 % (0.0-2.0); Eosinophils # (auto) 0.1 10 ^3/uL (0-0.8); Monocytes # (auto) 0.5 10 ^3/uL (0-1.3)
[2024-02-24 17:14] LABS: Eosinophils % (auto) 1.1 % (0.0-7.0); Hematocrit 31.7 % (36.0-46.0); Hemoglobin 9.8 g/dL (12.2-16.2); Lymphocytes # (auto) 1.4 10 ^3/uL (0.4-5.4); Mean Corpuscular Hgb Conc. 30.9 g/dL (32.0-36.0); Mean Corpuscular Volume 64.8 fL (80.0-100.0); Monocytes % (auto) 8.9 % (0.0-12.0); Neutrophils # (auto) 3.9 10 ^3/uL (1.6-8.6); Neutrophils % (auto) 66.5 % (37.0-80.0); Nucleated Red Blood Cells % 0.2 %; Platelet Count (auto) 412 10^3/uL (140-450); Red Cell Distribution Width 18.8 % (11.8-14.3); White Blood Cell 5.9 10^3/uL (4.4-10.8)
[2024-02-24 17:29] LABS: Alanine Aminotransferase 10 U/L (7-40); Albumin 4.3 g/dL (3.2-4.8); Alkaline Phosphatase 119 U/L (46-116); Anion Gap 8 (5-15); Aspartate Aminotransferase 17 U/L (13-40); BUN/Creatinine Ratio 10.3 (10.0-20.0); Blood Urea Nitrogen 11 mg/dL (9-23); Calcium 9.4 mg/dL (8.7-10.4); Carbon Dioxide 22 mmol/L (20-30); Chloride 109 mmol/L (98-107); Glucose 100 mg/dL (74-106); Magnesium 2.1 mg/dL (1.6-2.6); Potassium 3.4 mmol/L (3.5-5.1); Sodium 139 mmol/L (136-145)
[2024-02-24 17:30] LABS: Bilirubin, Total 0.4 mg/dL (0.2-1.0); Total Protein 7.8 g/dL (5.7-8.2)
[2024-02-24 19:27] VITALS: PULSE 82; RESP 11; O2SAT 97
[2024-02-24 19:46] LABS: Anisocytosis Slight; Hypochromia Marked; Platelet Estimate Adequate
[2024-02-24] MEDS ORDERED: DOCUSATE SOD 100 MG CAP PO PRN (21:15)
[2024-02-24] MEDS ORDERED: ONDANSETRON HCL 4 MG/2 ML VIAL IV PRN (21:15)
[2024-02-24] MEDS ORDERED: HYDROmorphone HCL 2 MG/ML VL/or syr IV PRN (21:15)
[2024-02-24] MEDS ORDERED: LORazepam 2MG/ML-1ML VIAL IV PRN (21:15)
[2024-02-24] MEDS ORDERED: ACETAMINOPHEN 325 MG TAB PO PRN (21:15)
[2024-02-24] MEDS ORDERED: HYDROcodone-ACET 5/325MG TAB PO PRN (21:15)
[2024-02-24] MEDS: levETIRAcetam 500 mg/100ml 100 ML IV SCH (21:26)
[2024-02-24] MEDS: POTASSIUM CHL 20 Meq TABLET PO ONE (21:26)
[2024-02-24] MEDS: SODIUM CHLOR 0.9% PF (SALINE LOCK) 10ML VIAL/SYR IV SCH (21:59)
[2024-02-25] VITALS (8 sets, daily range): BP systolic 93–119; BP diastolic 32–69; PULSE 66–75; RESP 17–21; TEMP 97.6–98.3; O2SAT 95–100
[2024-02-25] MEDS ORDERED: LAM100T PO (03:06)
[2024-02-25] MEDS ORDERED: CLOB10TA PO (03:06)
[2024-02-25] MEDS ORDERED: ZONI100C43 PO (03:06)
[2024-02-25 08:10] LABS: Basophils # (auto) 0 10 ^3/uL (0-0.2); Basophils % (auto) 0.5 % (0.0-2.0); Eosinophils # (auto) 0.1 10 ^3/uL (0-0.8); Eosinophils % (auto) 2.4 % (0.0-7.0); Hematocrit 29.7 % (36.0-46.0); Hemoglobin 9.1 g/dL (12.2-16.2); Lymphocytes # (auto) 1.7 10 ^3/uL (0.4-5.4); Lymphocytes % (auto) 35.4 % (10.0-50.0); Mean Corpuscular Hemoglobin 20.1 pg (28.0-32.0); Mean Corpuscular Hgb Conc. 30.5 g/dL (32.0-36.0); Mean Corpuscular Volume 65.9 fL (80.0-100.0); Monocytes # (auto) 0.5 10 ^3/uL (0-1.3); Monocytes % (auto) 11.2 % (0.0-12.0); Neutrophils # (auto) 2.4 10 ^3/uL (1.6-8.6); Neutrophils % (auto) 50.5 % (37.0-80.0); Nucleated Red Blood Cells % 0.1 %; Platelet Count (auto) 367 10^3/uL (140-450); Red Blood Cells 4.51 10^6/uL (4.0-5.20); Red Cell Distribution Width 19.4 % (11.8-14.3); White Blood Cell 4.8 10^3/uL (4.4-10.8)
[2024-02-25 08:28] LABS: Albumin 3.9 g/dL (3.2-4.8); Alkaline Phosphatase 103 U/L (46-116); Anion Gap 7 (5-15); Aspartate Aminotransferase 9 U/L (13-40); BUN/Creatinine Ratio 8.4 (10.0-20.0); Bilirubin, Total 0.4 mg/dL (0.2-1.0); Blood Urea Nitrogen 8 mg/dL (9-23); Carbon Dioxide 23 mmol/L (20-30); Chloride 112 mmol/L (98-107); Glucose 81 mg/dL (74-106); Potassium 3.4 mmol/L (3.5-5.1); Sodium 142 mmol/L (136-145); Total Protein 7.2 g/dL (5.7-8.2)
[2024-02-25 08:38] LABS: Alanine Aminotransferase < 9 U/L (7-40)
[2024-02-25] MEDS: ENOXAPARIN SOD 40 MG/0.4 ML SYRINGE SC SCH (09:39)
[2024-02-25] MEDS: POTASSIUM EFFERVESENT TAB 25 MEQ PO ONE (09:45)
[2024-02-25 10:05] LABS: Hepatitis B Surface Antigen Negative (Negative)
[2024-02-25 10:27] LABS: Hepatitis C Antibody Negative (Negative)
[2024-02-25] MEDS: TETRAHYDROZOLINE HCL 0.05% OPTH(EYE)SOL LEFTEYE PRN (22:14)
[2024-02-26] VITALS (10 sets, daily range): BP systolic 89–110; BP diastolic 32–68; PULSE 57–71; RESP 16–22; TEMP 97.5–98.3; O2SAT 93–100
[2024-02-26 07:47] LABS: Basophils # (auto) 0 10 ^3/uL (0-0.2); Eosinophils # (auto) 0.1 10 ^3/uL (0-0.8); Lymphocytes # (auto) 1.6 10 ^3/uL (0.4-5.4)
[2024-02-26 07:49] LABS: Basophils % (auto) 0.7 % (0.0-2.0); Eosinophils % (auto) 2.2 % (0.0-7.0); Hematocrit 28.5 % (36.0-46.0); Lymphocytes % (auto) 32.2 % (10.0-50.0); Mean Corpuscular Hemoglobin 20.6 pg (28.0-32.0); Mean Corpuscular Hgb Conc. 31.5 g/dL (32.0-36.0); Mean Corpuscular Volume 65.4 fL (80.0-100.0); Monocytes # (auto) 0.5 10 ^3/uL (0-1.3); Monocytes % (auto) 10.7 % (0.0-12.0); Neutrophils # (auto) 2.8 10 ^3/uL (1.6-8.6); Neutrophils % (auto) 54.2 % (37.0-80.0); Nucleated Red Blood Cells % 0.1 %; Platelet Count (auto) 329 10^3/uL (140-450); Red Blood Cells 4.35 10^6/uL (4.0-5.20); Red Cell Distribution Width 18.9 % (11.8-14.3); White Blood Cell 5.1 10^3/uL (4.4-10.8)
[2024-02-26 08:04] LABS: Alkaline Phosphatase 100 U/L (46-116); Anion Gap 6 (5-15); BUN/Creatinine Ratio 12.6 (10.0-20.0); Blood Urea Nitrogen 11 mg/dL (9-23); Carbon Dioxide 24 mmol/L (20-30); Chloride 110 mmol/L (98-107); Glucose 91 mg/dL (74-106); Potassium 3.5 mmol/L (3.5-5.1); Sodium 140 mmol/L (136-145)
[2024-02-26 08:05] LABS: Alanine Aminotransferase < 9 U/L (7-40); Albumin 3.6 g/dL (3.2-4.8); Aspartate Aminotransferase 9 U/L (13-40)
[2024-02-26 08:06] LABS: Bilirubin, Total 0.3 mg/dL (0.2-1.0); Total Protein 6.6 g/dL (5.7-8.2)
[2024-02-26] MEDS: lamoTRIgine 100 MG TAB PO SCH ×2 (10:01→23:46)
[2024-02-26] MEDS: SODIUM CHLORIDE 0.9% 1,000 ML IV SCH (15:00)
[2024-02-26] MEDS ORDERED: LAM100T PO ×2 (23:27)
[2024-02-27 01:00] VITALS: BP 103/43; PULSE 66; RESP 22; TEMP 98.4; O2SAT 99
[2024-02-27 02:57] LABS: Amphetamine Screen, Urine Neg (NEGATIVE); Barbiturate Scree,Urine Neg (NEGATIVE); Benzodiazephine Screen, Urine Pos (NEGATIVE); Cannabinoid Screen, Urine Neg (NEGATIVE); Cocaine Screen, Urine Neg (NEGATIVE); Opiate Scree,Urine Neg (NEGATIVE); Phencyclidine Screen, Urine Neg (NEGATIVE)
[2024-02-27 05:00] VITALS: BP 94/42; PULSE 53; RESP 18; TEMP 98.2; O2SAT 100
[2024-02-27 06:06] LABS: Basophils # (auto) 0 10 ^3/uL (0-0.2); Eosinophils # (auto) 0.1 10 ^3/uL (0-0.8); Hematocrit 27.2 % (36.0-46.0); Lymphocytes # (auto) 1.6 10 ^3/uL (0.4-5.4); Monocytes # (auto) 0.4 10 ^3/uL (0-1.3); Neutrophils # (auto) 1.9 10 ^3/uL (1.6-8.6); White Blood Cell 4.1 10^3/uL (4.4-10.8)
[2024-02-27 06:10] LABS: Basophils % (auto) 0.6 % (0.0-2.0); Eosinophils % (auto) 2.9 % (0.0-7.0); Hemoglobin 8.5 g/dL (12.2-16.2); Lymphocytes % (auto) 38.9 % (10.0-50.0); Mean Corpuscular Hemoglobin 20.4 pg (28.0-32.0); Mean Corpuscular Hgb Conc. 31.2 g/dL (32.0-36.0); Mean Corpuscular Volume 65.5 fL (80.0-100.0); Monocytes % (auto) 10.2 % (0.0-12.0); Neutrophils % (auto) 47.4 % (37.0-80.0); Platelet Count (auto) 329 10^3/uL (140-450); Red Blood Cells 4.15 10^6/uL (4.0-5.20); Red Cell Distribution Width 19.3 % (11.8-14.3)
[2024-02-27 06:11] LABS: Alkaline Phosphatase 89 U/L (46-116); Anion Gap 7 (5-15); Aspartate Aminotransferase 10 U/L (13-40); Calcium 8.4 mg/dL (8.7-10.4); Carbon Dioxide 23 mmol/L (20-30); Chloride 111 mmol/L (98-107); Glucose 83 mg/dL (74-106); Potassium 3.6 mmol/L (3.5-5.1); Sodium 141 mmol/L (136-145)
[2024-02-27 06:12] LABS: Albumin 3.5 g/dL (3.2-4.8); BUN/Creatinine Ratio 9.3 (10.0-20.0); Blood Urea Nitrogen 7 mg/dL (9-23)
[2024-02-27 06:13] LABS: Alanine Aminotransferase < 9 U/L (7-40)
[2024-02-27 06:14] LABS: Bilirubin, Total 0.3 mg/dL (0.2-1.0); Total Protein 6.5 g/dL (5.7-8.2)
[2024-02-27] MEDS: lamoTRIgine 100 MG TAB PO SCH (06:21)
[2024-02-27 07:06] LABS: Hypochromia Slight; Platelet Estimate Adequate
[2024-02-27 08:00] VITALS: PULSE 68
[2024-02-27 08:42] VITALS: BP 106/35; PULSE 64; RESP 20; TEMP 97.4; O2SAT 97
[2024-02-27 12:13] VITALS: TEMP 36.3
[2024-02-27 12:50] VITALS: BP 100/48; PULSE 66; RESP 20; TEMP 98.2; O2SAT 100
[2024-02-27] MEDS ORDERED: Zonisamide 300 MG PO SCH (22:00)
== END 2024-02-27 13:57 | disposition home or self-care (01) | DRG 53 ==
LOC: ER 15:23 → TELE 21:09 → TELE-CENTR 21:09
PROVIDERS: ADMIT Internal Medicine Geriatric Medicine; ATTEND Internal Medicine Geriatric Medicine
PROC: 5A09357 Assistance with Respiratory Ventilation, Less than 24 Consecutive Hours, Continuous Positive Airway Pressure (ICD-10-PCS; principal; 2024-02-24)
DX: G40.401 Other generalized epilepsy and epileptic syndromes, not intractable, with status epilepticus (principal); S09.90XA Unspecified injury of head, initial encounter; D64.9 Anemia, unspecified; E87.6 Hypokalemia; I10 Essential (primary) hypertension; E03.9 Hypothyroidism, unspecified; W18.39XA Other fall on same level, initial encounter; Y92.89 Other specified places as the place of occurrence of the external cause; Y93.89 Activity, other specified; Y99.8 Other external cause status; Z82.49 Family history of ischemic heart disease and other diseases of the circulatory system; Z83.3 Family history of diabetes mellitus; Z79.899 Other long term (current) drug therapy
CPT/HCPCS: 36415; 70450; 70551; 71045; 80053; 80307; 82306; 82607; 83036; 83605; 83735; 84443; 84484; 84702; 85025; 86803; 87340; 93005; 95819; 96374; G0378

== ENCOUNTER 2024-10-19 09:47 | Inpatient (IN) | payer MEDICAID ==
[~2024-10-19] VITALS: Ht 167.6 cm; Wt 107.1 kg
[~2024-10-19 09:47] MED LIST changes: +CLOB10TA PO; -CLOB20TA3 PO; +LAM100T PO; -LAMO200T34 PO; -NITR-87 PO; +ZONI100C43 PO
--- NOTE | 2024-10-19 10:41 | ED.PDOC ---
HPI Comments 48Y F with PMHx HTN and seizures presents to ED via EMS with chief complaint chest pain x4days. Pt states chest pain radiates to upper abdomen. Before chest pain began on Thursday, pt thought she was going to experience a seizure on . Pt then states she woke up with multiple bruises on arms on Thursday. Pt denies h/o heart disease. No other symptoms or history reported. Chief Complaint: Chest Pain Time Seen by MD: 09:59 Primary Care Provider: MARIA Terrell Notes: Nurses Notes, Signal Helper Notes, Medications, Allergies Allergies: Coded Allergies: NO KNOWN ALLERGIES (Unverified , 05/06/21) Home Meds Reported Medications Lamotrigine (Lamictal) 100 Mg Tab, 3 TAB PO QHSP, #30 TAB 1 Refill 02/26/24 Lamotrigine (Lamictal) 100 Mg Tab, 1 TAB PO QAM, #30 TAB 1 Refill 02/26/24 Brivaracetam (Briviact) 100 Mg Tab, 200 MG PO BID, TAB 02/26/24 Zonisamide (Zonisamide) 100 Mg Cap, 100 MG PO, CAP 02/25/24 Cholecalciferol (VITAMIN D3) 2,000 Unit Tab, 1 TAB PO DAILY, #30 TAB 5 Refills 02/25/24 Clobazam (ONFI) 10 Mg Tab, 10 MG PO, TAB 02/25/24 Cholecalciferol (VITAMIN D3) 2,000 Unit Tab, 1 TAB PO DAILY, #30 TAB 5 Refills 10/11/23 Brivaracetam (Briviact) 100 Mg Tab, 100 MG PO BID, TAB 12/25/18 Information Source: Patient, Emergency Med Personnel Mode of Arrival: EMS Brought in by: EMS Severity: Mild Timing: Days Duration: Since onset Prehospital treatment: 12 Lead EKG Location: Substernal Radiation: Abdomen Quality: Other Onset: At Rest Cardiac Risk Factors: HTN PE Risk Factors: None History of: None Modifying Factors: Nothing Associated Signs and Symptoms: Other Past Medical History PAST MEDICAL HISTORY: HTN, Seizures, Thyroid Surgical History: Denies all surgeries TRADING ANALYST History: No Pertinent TRADING ANALYST History Family History Family History: No family hx of HTN, Family hx of DM, Family hx of Cancer Social History Smoker: Non-Smoker Alcohol: Denies ETOH Use Drugs: Denies Drug Use Lives In: Home Constitutional: denies: chills, diaphoresis, fatigue, fever, malaise, sweats, weakness, others EENTM: denies: blurred vision, double vision, ear bleeding, ear discharge, ear drainage, ear pain, ear ringing, eye pain, eye redness, hearing loss, mouth pain, mouth swelling, nasal discharge, nose bleeding, nose congestion, nose pain, photophobia, tearing, throat pain, throat swelling, voice changes, others Respiratory: denies: cough, hemoptysis, orthopnea, SOB at rest, shortness of breath, SOB with excertion, stridor, wheezing, others Cardiovascular: reports: chest pain; denies: dizzy spells, diaphoresis, Dyspnea on exertion, edema, irregular heart beat, left arm pain, lightheadedness, palpitations, PND, syncope, others Gastrointestinal: reports: abdominal pain; denies: abdomen distended, blood streaked bowels, constipated, diarrhea, dysphagia, difficulty swallowing, hematemesis, melena, nausea, poor appetite, poor fluid intake, rectal bleeding, rectal pain, vomiting, others Genitourinary: denies: abnormal vagina bleeding, burning, dyspareunia, dysuria, flank pain, frequency, hematuria, incontinence, pain, , vagina discharge, urgency, others Neurological: denies: dizziness, fainting, headache, left sided numbness, left sided weakness, numbness, paresthesia, pre-existing deficit, right sided numbness, right sided weakness, seizure, speech problems, tingling, tremors, weakness, others Musculoskeletal: denies: back pain, gout, joint pain, joint swelling, muscle pain, muscle stiffness, neck pain, others Integumetry: denies: bruises, change in color, change in hair/nails, dryness, laceration, lesions, lumps, rash, wounds, others Allergic/Immunocompromised: denies: Difficulty Healing, Frequent Infections, Hives, Itching, others Hematologic/Lymphatic: denies: anemia, blood clots, easy bleeding, easy bruising, swollen glands, others Endocrine: denies: excessive hunger, excessive sweating, excessive thirst, excessive urination, flushing, intolerance to cold, intolerance to heat, unexplained weight gain, unexplained weight loss, others Psychiatric: denies: anxiety, bipolar disorder, depression, hopeless, panic disorder, schizophrenia, sleepless, suicidal, others All Other Systems: Reviewed and Negative Physical Exam General Appearance: Mild Distress HEENT: Normal ENT Inspection, Pharynx Normal, TMs Normal Neck: Full Range of Motion, Non-Tender, Normal, Normal Inspection Respiratory: Chest Non-Tender, Lungs Clear, No Accessory Muscle Use, No Respiratory Distress, Normal Breath Sounds Cardiovascular: No Edema, No JVD, No Murmur, No Gallop, Normal Peripheral Pulses, Regular Rate/Rhythm Breast Exam: Deferred Gastrointestinal: No Organomegaly, Non Tender, No Pulsatile Mass, Normal Bowel Sounds, Soft Genitalia: Deferred Pelvic: Deferred Rectal: Deferred Extremities: No calf tenderness, Normal capillary refill, Normal inspection, Normal range of motion, Non-tender, No pedal edema Musculoskeletal : Apperance: Normal Neurologic: Alert, electro mechanical designer II-XII nml as Tested, No Motor Deficits, Normal Affect, Normal Mood, No Sensory Deficits Cerebellar Function: NOT DONE Reflexes: NOT DONE Skin: Dry, Normal Color, Warm Lymphatic: No Adenopathy Was a procedure done? Was a procedure done?: No CP Differential Dx Differential Diagnosis: Electrolyte Disorder, Heart Failure, Pulmonary Embolus, Sinus Tachycardia X-Ray, Labs, Meds, VS Vital Signs Date Time Temp Pulse Resp B/P (MAP) Pulse Ox O2 Delivery O2 Flow Rate FiO2 10/19/24 12:17 97.4 77 18 108/63 (78) 97 97.4 10/19/24 10:41 73 10/19/24 09:57 82 10/19/24 09:47 98.8 100 17 135/86 (102) 97 98.8 Lab Test 10/19/24 14:44 10/19/24 12:46 10/19/24 10:33 Range/Units Troponin I High Sensitivity Pending < 3 L < 3 L </=34 ng/L White Blood Count Pending Red Blood Count Pending Hemoglobin Pending Hematocrit Pending Mean Corpuscular Volume Pending Mean Corpuscular Hemoglobin Pending Mean Corpuscular Hemoglobin Concent Pending Red Cell Distribution Width Pending Platelet Count Pending Mean Platelet Volume Pending Neutrophils (%) (Auto) Pending Lymphocytes (%) (Auto) Pending Monocytes (%) (Auto) Pending Basophils (%) (Auto) Pending Neutrophils # (Auto) Pending Lymphocytes # (Auto) Pending Monocytes # (Auto) Pending Sodium Level Pending Potassium Level Pending Chloride Level Pending Carbon Dioxide Level Pending Anion Gap Pending Blood Urea Nitrogen Pending Creatinine Pending Glomerular Filtration Rate Calc Pending BUN/Creatinine Ratio Pending Serum Glucose Pending Calcium Level Pending Time of 1ST Reevaluation: 10:29 Reevaluation 1ST: Unchanged Patient Education/Counseling: Diagnosis, Treatment Family Education/Counseling: No Family Present Departure 1 Departure Time of Disposition: 15:11 (Patient presented with chest pain that was concerning for possible STEMI, ACS, PE, Pneumonia, Muscle Strain, COPD, Dissection. Data: 1. I ordered and reviewed the result of at least 3 labs including a CBC, BMP, and Troponin. 2. I independently interpreted the following tests: EKG which shows sinus arrhythmia and Chest X-ray which shows benign chest.Risk:This patient has a high risk of morbidity due to further diagnostic testing or treatment and may suffer from an acute cardiac or respiratory d isorder. Workup reveals concern for ACS and patient should be admitted for further workup and possible expert consultation. ) Impression: Primary Impression: Acute chest pain Disposition: 09 ADMITTED INPATIENT Admit to: Med Surg Condition: Serious Critical Care Note Critical Care Time?: Yes Critical care comment: Acute chest pain Authorized and Performed by: Lai Bonilla MD Total critical care time: Approximately 32 minutes Due to a high probability of clinically significant, life threatening deterioration, the patient required my highest level of preparedness to intervene emergently and I personally spent this critical care time directly and personally managing the patient. This critical care time included obtaining a history; examining the patient; pulse oximetry; ordering and review of studies; arranging urgent treatment with development of a management plan; evaluation of patient's response to treatment; frequent reassessment; and, discussions with o ther providers. This critical care time was performed to assess and manage the high probability of imminent, life-threatening deterioration that could result in multi-organ failure. It was exclusive of separately billable procedures and treating other patients and teaching time. Please see my other sections and the rest of the note for further information on patient assessment and treatment. Stability Stability form required: No Heart Score Heart Score: Heart Score Response (Comments) Value History Slightly Suspicious 0 EKG Normal 0 Age 45-64 1 Risk Factors 1 or 2 risk factors 1 Troponin Normal limit 0 Total 2 I personally scribed for LAI BONILLA MD ([email or web address]) on 10/19/24 at 10:41. Electronically submitted by Sharmila Larkin ([facility]). LAI BONILLA MD Oct 19, 2024 10:41
[2024-10-19 15:06] LABS: Chloride 106 mmol/L (98-107); Potassium 3.5 mmol/L (3.5-5.1)
[2024-10-19 15:07] LABS: Carbon Dioxide 22 mmol/L (20-31)
[2024-10-19 15:11] LABS: Basophils # (auto) 0 10 ^3/uL (0-0.2); Eosinophils # (auto) 0 10 ^3/uL (0-0.8); Red Cell Distribution Width 17.9 % (11.8-14.3); White Blood Cell 5.4 10^3/uL (4.4-10.8)
[2024-10-19 15:12] LABS: BUN/Creatinine Ratio 10.5 (10.0-20.0); Blood Urea Nitrogen 12 mg/dL (9-23); Glucose 100 mg/dL (74-106)
[2024-10-19 15:13] LABS: Basophils % (auto) 0.3 % (0.0-2.0); Eosinophils % (auto) 0.9 % (0.0-7.0); Hematocrit 32.5 % (36.0-46.0); Hemoglobin 9.5 g/dL (12.2-16.2); Lymphocytes # (auto) 0.9 10 ^3/uL (0.4-5.4); Lymphocytes % (auto) 17.7 % (10.0-50.0); Mean Corpuscular Hemoglobin 18.9 pg (28.0-32.0); Mean Corpuscular Hgb Conc. 29.3 g/dL (32.0-36.0); Mean Corpuscular Volume 64.4 fL (80.0-100.0); Monocytes # (auto) 0.3 10 ^3/uL (0-1.3); Neutrophils % (auto) 75.1 % (37.0-80.0); Platelet Count (auto) 474 10^3/uL (140-450); Red Blood Cells 5.04 10^6/uL (4.0-5.20)
--- NOTE | 2024-10-19 15:18 | DVH ---
INDICATION: chest pain TECHNIQUE: Frontal view of the chest. COMPARISON: XY CHEST PORTABLE on DOS: 02/24/24, CHEST PORTABLE on DOS: 03/10/22, CXRP on DOS: 03/10/22 FINDINGS: The heart and mediastinal contours are grossly unremarkable. There is no evidence of pleural diseas e. The lungs are clear. The bony structures of the chest are intact without fracture. IMPRESSION: 1. No evidence of acute disease.
[2024-10-19 15:56] LABS: Platelet Estimate Increased
[2024-10-19 15:57] LABS: Hypochromia Marked
[2024-10-19 16:02] LABS: Anion Gap 12 (5-15); Sodium 140 mmol/L (136-145)
--- NOTE | 2024-10-19 17:58 | ECG ---
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
--- NOTE | 2024-10-19 17:59 | ECG ---
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
[2024-10-19] MEDS ORDERED: ONDANSETRON HCL 4 MG/2 ML VIAL IV PRN (19:15)
[2024-10-19] MEDS ORDERED: MORPHINE SULFATE INJ 2 MG/ml SYRG IV PRN (19:15)
[2024-10-19] MEDS ORDERED: ACETAMINOPHEN 325 MG TAB PO PRN (19:15)
--- NOTE | 2024-10-19 21:12 | DVHHP2 ---
History of Present Illness Reason for Visit: Chest pain History of Present Illness 48-year-old female presents for evaluation of chest pain. Patient endorses a five day history of continuous substernal sharp pain. Denies nausea, vomiting or shortness for breath. No relieving or exacerbating factors. No other acute complaints reported. Past Medical History Hypertension, seizures and thyroid Past Surgical History Denies Family History Noncontributory Smoke: No ALCOHOL: none Drugs: None Lives: with Family Review of Systems Review of Systems Review of systems are currently negative otherwise addressed in HPI. Allergies: Coded Allergies: NO KNOWN ALLERGIES (Unverified , 05/06/21) Medications Current Medications Medications Dose Ordered Sig/Marlena Route Start Time Stop Time Status Last Admin Dose Admin Aspirin 81 mg DAILY PO 10/20/24 10:00 Atorvastatin Calcium 10 mg HS PO 10/19/24 22:00 Patient Own Medication 200 mg BID PO 10/19/24 22:00 UNV Lamotrigine 100 mg Q12HR PO 10/19/24 22:00 Ondansetron HCl 4 mg Q4HP PRN IV 10/19/24 19:15 Acetaminophen 650 mg Q6HP PRN PO 10/19/24 19:15 Nitroglycerin 0.4 mg Q5MINP PRN SL 10/19/24 19:15 Morphine Sulfate 2 mg Q30M PRN IV 10/19/24 19:15 Exam Vital Signs Vital Signs Date Time Temp Pulse Resp B/P (MAP) Pulse Ox O2 Delivery O2 Flow Rate FiO2 10/19/24 15:58 97.5 75 18 139/48 (78) 100 97.5 Exam Gen: 49-year-old female in mild distress, obese Skin: Warm, dry, normal color and texture, no rash. HEENT: Normocephalic atraumatic, mucous membranes moist and pink. Neck: Cervical and supraclavicular nodes normal without enlargement, trachea is midline, thyroid gland is normal without masses. Pulmonary: Clear to auscultation and percussion bilaterally. Cardiac: Regular rate and rhythm. No murmur Abdomen: Soft, nontender, nondistended, bowel sounds present all 4 quadrants, no guarding, no rigidity, no organomegaly. Extremities: No cyanosis, clubbing, no edema Neuro: Cranial nerves II through XII grossly intact, normal affect and speech, no focal motor deficits. Labs/Xrays ORDERING PHYSICIAN: LAI BONILLA MD PROCEDURE(s): CXRP - CHEST PORTABLE REASON: chest pain ORDER NUMBER(s): [id number], ACCESSION NUMBER(s): [id number] INDICATION: chest pain TECHNIQUE: Frontal view of the chest. COMPARISON: XY CHEST PORTABLE on DOS: 02/24/24, CHEST PORTABLE on DOS: 03/10/22, CXRP on DOS: 03/10/22 FINDINGS: The heart and mediastinal contours are grossly unremarkable. There is no evidence of pleural disease. The lungs are clear. The bony structures of the chest are intact without fracture. IMPRESSION: 1. No evidence of acute disease. Labs Test 10/19/24 14:44 10/19/24 10:33 Range/Units Troponin I High Sensitivity < 3 L </=34 ng/L White Blood Count 5.4 4.4-10.8 10^3/uL Red Blood Count 5.04 4.0-5.20 10^6/uL Hemoglobin 9.5 L 12.2-16.2 g/dL Hematocrit 32.5 L 36.0-46.0 % Mean Corpuscular Volume 64.4 L 80.0-100.0 fL Mean Corpuscular Hemoglobin 18.9 L 28.0-32.0 pg Mean Corpuscular Hemoglobin Concent 29.3 L 32.0-36.0 g/dL Red Cell Distribution Width 17.9 H 11.8-14.3 % Platelet Count 474 H 140-450 10^3/uL Mean Platelet Volume 8.0 6.9-10.8 fL Neutrophils (%) (Auto) 75.1 37.0-80.0 % Lymphocytes (%) (Auto) 17.7 10.0-50.0 % Monocytes (%) (Auto) 6.0 0.0-12.0 % Eosinophils (%) (Auto) 0.9 0.0-7.0 % Basophils (%) (Auto) 0.3 0.0-2.0 % Neutrophils # (Auto) 4.0 1.6-8.6 10 ^3/uL Lymphocytes # (Auto) 0.9 0.4-5.4 10 ^3/uL Monocytes # (Auto) 0.3 0-1.3 10 ^3/uL Eosinophils # (Auto) 0 0-0.8 10 ^3/uL Basophils # (Auto) 0 0-0.2 10 ^3/uL Nucleated Red Blood Cells 0.0 % Platelet Estimate Increased Hypochromasia (manual) Marked Microcytosis Marked Sodium Level 140 136-145 mmol/L Potassium Level 3.5 3.5-5.1 mmol/L Chloride Level 106 98-107 mmol/L Carbon Dioxide Level 22 20-31 mmol/L Anion Gap 12 5-15 Blood Urea Nitrogen 12 9-23 mg/dL Creatinine 1.14 H 0.550-1.02 mg/dL Glomerular Filtration Rate Calc 60 >90 mL/min BUN/Creatinine Ratio 10.5 10.0-20.0 Serum Glucose 100 74-106 mg/dL Calcium Level 10.0 8.7-10.4 mg/dL Assessment/Plan Assessment/Plan Assessment Chest pain History of seizures Plan Admit the patient to telemetry to the hospitalist Echocardiogram pending Resume home medications Continue treatment per orders. Plan discussed with: Patient My Orders Orders - FLORA PANDYA Procedure Category Date Status Time Aspirin Tablet PHA 10/20/24 In Process 10:00 Atorvastatin (Lipitor) PHA 10/19/24 In Process 22:00 Basic Metabolic Panel LAB 10/20/24 Verified 04:00 (Nf) Brivaracetam PHA 10/19/24 Logged 22:00 Seizure Precautions LAILA 10/19/[address] 19:10 Lamotrigine Tablet PHA 10/19/24 In Process (Lamictal Tablet) 22:00 Admit ADMIT 10/19/24 Transmitted 19:10 Ondansetron Hcl PHA 10/19/24 In Process (Zofran) 19:15 Cardiac DIET 10/20/24 Transmitted Diet-2gna,Lofat,Lochol Breakfast Echo 2d Mode Cardiac US 10/19/24 Logged DOP 19:10 Condition: Fair LAILA 10/19/24 In Process 19:10 Acetaminophen Tablet PHA 10/19/24 In Process (Tylenol Tablet) 19:15 Bedrest With Bathroom LAILA 10/19/24 In Process Privileg 19:10 Nitroglycerin PHA 10/19/24 In Process Sublingual (Ntrostat 19:15 Morphine Sulfate PHA 10/19/24 In Process Injection 19:15 Stat Ekg For Chest [facility] 10/19/24 In Process Pain 19:10 Notify Md Of Changes [facility] 10/19/24 In Process From Base 19:10 Shake Sawyer For [facility] 10/19/24 In Process 24 Hours 19:10 Emergency Dysrhythmia [facility] 10/19/24 In Process Protocol 19:10 Rhythm Strips Once [facility] 10/19/24 In Process Every Shift 19:10 Oxygen By Nasal RT 10/19/24 Transmitted Cannula 19:10 Date of Service: Oct 19, 2024 Billing Provider: FLORA PANDYA Common Visit Codes: [id number] INP/OBS CARE (HIGH) FLORA PANDYA Oct 19, 2024 21:12
[2024-10-19 21:33] LABS: Triglycerides 69 mg/dL (< 150)
[2024-10-19 21:34] LABS: LDL Cholesterol 71 mg/dL (< 100)
[2024-10-19 21:35] LABS: Cholesterol 149 mg/dL (< 200)
[2024-10-19 21:36] LABS: HDL Cholesterol 63 mg/dL (40-59)
[2024-10-19] MEDS: BRIVARACETAM 200 MG PO SCH (22:00)
[2024-10-19 22:32] VITALS: PULSE 73; RESP 16; O2SAT 100
[2024-10-19] MEDS: lamoTRIgine 100 MG TAB PO SCH (22:38)
[2024-10-19] MEDS: ATORVASTATIN 20 MG TAB PO SCH (22:39)
[2024-10-19] MEDS: NITROGLYCERIN 0.4 MG SL TAB SL PRN (22:39)
[2024-10-20 01:00] VITALS: BP 134/48; PULSE 75; RESP 17; TEMP 97.5; O2SAT 100
[2024-10-20 01:31] VITALS: BP 134/48; PULSE 62; PULSE 75; RESP 17; TEMP 97.5; O2SAT 100; O2SAT 98
[2024-10-20 05:25] VITALS: BP 122/51; PULSE 71; TEMP 97.7; O2SAT 100
[2024-10-20 08:26] LABS: Chloride 106 mmol/L (98-107); Potassium 3.7 mmol/L (3.5-5.1); Sodium 141 mmol/L (136-145)
[2024-10-20 08:27] LABS: Anion Gap 12 (5-15); Carbon Dioxide 23 mmol/L (20-31)
[2024-10-20 08:28] LABS: Calcium 9.7 mg/dL (8.7-10.4)
[2024-10-20 08:32] LABS: BUN/Creatinine Ratio 17.9 (10.0-20.0); Blood Urea Nitrogen 15 mg/dL (9-23); Glucose 81 mg/dL (74-106)
[2024-10-20 09:05] VITALS: BP 136/71; PULSE 72; RESP 17; TEMP 97.6; O2SAT 99
[2024-10-20] MEDS: ASPirin 81 mg TAB PO SCH (09:16)
--- NOTE | 2024-10-20 13:01 | DVHPN2 ---
Reviewed: Care Plan, H&P, Labs, Medications, Previous Orders, Radiology Changes from previous H/P or p: No Changes Objective Vitals Vital Signs Date Time Temp Pulse Resp B/P (MAP) Pulse Ox O2 Delivery O2 Flow Rate FiO2 10/20/24 09:05 97.6 72 17 136/71 (92) 99 97.6 10/19/24 22:32 Room Air* 0 21 Intake/Output Intake and Output 10/20/24 07:00 Intake Total 120 ml Balance 120 ml Intake Oral 120 ml Medications Current Medications Medications Dose Ordered Sig/Marlena Route Start Time Stop Time Status Last Admin Dose Admin Aspirin 81 mg DAILY PO 10/20/24 10:00 10/20/24 09:16 81 MG Atorvastatin Calcium 10 mg HS PO 10/19/24 22:00 10/19/24 22:39 10 MG Patient Own Medication 200 mg BID PO 10/19/24 22:00 Lamotrigine 100 mg Q12HR PO 10/19/24 22:00 10/20/24 09:16 100 MG Ondansetron HCl 4 mg Q4HP PRN IV 10/19/24 19:15 Acetaminophen 650 mg Q6HP PRN PO 10/19/24 19:15 Nitroglycerin 0.4 mg Q5MINP PRN SL 10/19/24 19:15 10/19/24 22:39 0.4 MG Morphine Sulfate 2 mg Q30M PRN IV 10/19/24 19:15 Laboratory Results Laboratory Tests 10/19/24 10:33 10/20/24 07:15 Chemistry Test 10/20/24 07:15 Calcium Level 9.7 mg/dL (8.7-10.4) Lipid panel Test 10/19/24 14:44 Cholesterol Level 149 mg/dL (< 200) HDL Cholesterol 63 mg/dL (40-59) H Triglycerides Level 69 mg/dL (< 150) HgA1c, TSH Test 10/19/24 14:44 Thyroid Stimulating Hormone (TSH) 2.78 uIU/mL (0.55-4.78) Labs and/or images reviewed: Labs reviewed by me, Image(s) reviewed by me Assessment/Plan Assessment/Plan Chest pain rule out coronary artery disease: Troponin negative x3, treatment per ACS protocol, cardiology consult for Dr. Alvarez History of seizures Will check urine drug screen Plan discussed with: Patient My Orders Orders - CASEY SULLIVAN MD Procedure Category Date Status Time Drug Screen LAB 10/20/24 Transmitted 12:58 Date of Service: Oct 20, 2024 Billing Provider: CASEY SULLIVAN MD Common Visit Codes: [id number] INP/OBS CARE(HIGH) CASEY SULLIVAN MD Oct 20, 2024 13:01
[2024-10-20 13:27] LABS: Triglycerides 74 mg/dL (< 150)
[2024-10-20 13:28] LABS: LDL Cholesterol 72 mg/dL (< 100)
[2024-10-20 13:29] LABS: Cholesterol 147 mg/dL (< 200); HDL Cholesterol 59 mg/dL (40-59)
--- NOTE | 2024-10-20 13:55 | DVHSR ---
APPROVED REPORT EXAM: Two-dimensional and M-mode echocardiogram with Doppler and color Doppler. Blood Pressure: 122/51 mmHg INDICATION Chest Pain RISK FACTORS Height: 66, Weight: 229 DIMENSIONS LVDd4.7 (3.8-5.7cm)LA (2D)4.4 (1.9-4.0cm)Aortic Root2.9 (2.0-3.7cm) LVDs3.2 (2.5-4.0cm)LA (MM) (1.9-4.0cm)Aortic Cusp Exc2.0 (1.5-2.0cm) EF (%) 60.0 (55-70%)Rt. Atrium4.2 (1.9-4.0cm)Asc. Aorta cm IVSd1.0 (0.7-1.1cm)RV (D) (1.8-2.4cm) PWd1.2 (0.7-1.1cm) Mitral Valve MitralMitral Stenosis E wave0.79m/sMV Mean GR.mmHg A wave0.66m/sMV Peak GR.mmHg E/A ratio1.22D MVAcm2 DECEL [id number] 1/2 [id number] IVRTmsDop MVA3.48cm2 Aortic Valve Aortic ValveAortic Stenosis V11.06m/Barber Mean GR.7mmHg V21.73m/Barber Peak GR.12mmHg LVOT Diameter2.3 (1.8-2.4cm)Doppler AVA2.54cm2 Pulmonic Valve V21.75m/s Tricuspid Valve TR Velocity2.32m/s [id number] Other Information Technically limited study due to body habitus. Conclusion lvef 60% by viusal estimate normal rv function, mild RV enlargement no severe valve abnormaliteis noted left atrium enlarged
[2024-10-20 14:33] VITALS: BP 92/47; PULSE 77; RESP 17; TEMP 97.6; O2SAT 100
--- NOTE | 2024-10-20 16:41 | DVHINCON2 ---
Date Seen: Oct 20, 2024 Referring Physician MD Johnson Reason for Consultation Chest pain History of Present Illness This is a 48-year-old female patient who presents to the emergency room with chief complaint of chest pain. She describes the pain as constant, sharp in nature, generalized over her right and left chest and nonradiating. Chest pain is reproducible upon palpation. Initial twelve lead electrocardiogram reveals normal sinus rhythm without any significant ST segment changes. Serial troponin levels have been negative. Significant past medical history includes seizures and obesity. The patient denies any significant family cardiac history. Past Medical History Past medical history reviewed. No other significant than mentioned above. Past Surgical History Denies Family History: Cancer Grandmother, Onset:Unknown Diabetes mellitus Grandmother, Onset:Unknown Uncle, Onset:Unknown Family history: Diabetes mellitus Family history: Hypertension G8 MOTHER, Onset:Unknown Hypertension Family History Family history reviewed. Social History Denies the use of tobacco, alcohol or illicit drugs. Allergies: Coded Allergies: NO KNOWN ALLERGIES (Unverified , 05/06/21) Home Meds Reported Medications Lamotrigine (Lamictal) 100 Mg Tab, 3 TAB PO QHSP, #30 TAB 1 Refill 02/26/24 Lamotrigine (Lamictal) 100 Mg Tab, 1 TAB PO QAM, #30 TAB 1 Refill 02/26/24 Brivaracetam (Briviact) 100 Mg Tab, 200 MG PO BID, TAB 02/26/24 Zonisamide (Zonisamide) 100 Mg Cap, 100 MG PO, CAP 02/25/24 Cholecalciferol (VITAMIN D3) 2,000 Unit Tab, 1 TAB PO DAILY, #30 TAB 5 Refills 02/25/24 Clobazam (ONFI) 10 Mg Tab, 10 MG PO, TAB 02/25/24 Cholecalciferol (VITAMIN D3) 2,000 Unit Tab, 1 TAB PO DAILY, #30 TAB 5 Refills 10/11/23 Brivaracetam (Briviact) 100 Mg Tab, 100 MG PO BID, TAB 12/25/18 Home Meds Home medications reviewed. Current Medications Current Medications Medications (Trade) Dose Ordered Sig/Marlena Route PRN Reason Start Time Stop Time Status Last Admin Aspirin 81 mg DAILY PO 10/20/24 10:00 10/20/24 09:16 Atorvastatin Calcium (Lipitor) 10 mg HS PO 10/19/24 22:00 10/19/24 22:39 Patient Own Medication 200 mg BID PO 10/19/24 22:00 Lamotrigine (LaMICtal TABLET) 100 mg Q12HR PO 10/19/24 22:00 10/20/24 09:16 Ondansetron HCl (Zofran) 4 mg Q4HP PRN IV NAUSEA / VOMITING 10/19/24 19:15 Acetaminophen (Tylenol Tablet) 650 mg Q6HP PRN PO PAIN SCALE 1-3 OR TEMP>100.4 10/19/24 19:15 10/20/24 16:25 DC Nitroglycerin (Ntrostat Sublingual) 0.4 mg Q5MINP PRN SL FOR CHEST PAIN 10/19/24 19:15 10/19/24 22:39 Morphine Sulfate 2 mg Q30M PRN IV FOR CHEST PAIN 10/19/24 19:15 Sodium Chloride 1,000 ml @ 150 mls/hr Q6H40M IV 10/20/24 16:00 Ketorolac Tromethamine (Toradol Injection) 15 mg Q6HPRN PRN IV MILD PAIN (1-3 PAIN SCALE) 10/20/24 16:15 10/25/24 16:14 Acetaminophen (Tylenol Tablet) 650 mg Q6HP PRN PO TEMP>100.4 10/20/24 16:30 Review of Systems Constitutional: No symptom reported Ears, Nose, & Throat: No symptom reported Eyes: No symptom reported Neurological: No symptoms reported Pulmonary/Respiratory: No symptoms reported Cardiovascular: Chest pain Gastrointestinal: No symptom reported Genitourinary: No symptom reported Musculoskeletal: No symptom reported Skin: No symptom reported Psychiatric: No symptom reported Endocrine: No symptom reported Hematologic/Lymphatic: No symptom reported Vital Signs Vital Signs Date Time Temp Pulse Resp B/P (MAP) Pulse Ox O2 Delivery O2 Flow Rate FiO2 10/20/24 14:33 97.6 77 17 92/47 (62) 100 97.6 10/19/24 22:32 Room Air* 0 21 Physical Exam General Appearance: Cooperative. Obese Pulmonary/Respiratory: Clear, bilateral breaths sounds. Cardiovascular/Chest: Regular rate and rhythm. Peripheral Pulses: 2+ Radial (R). 2+ Radial (L). 2+ Pedal (R). 2+ Pedal (L) Abdominal Exam: Normal bowel sounds. Ankle Exam: Negative ankle edema Lower extremities: Negative lower extremity edema Neuro/Mental Status: A/OX4, coherent. Thoughts/Psych: Normal thought pattern. Appropriate mood and affect. Good judgment and insight. Appearance: No acute distress. Skin Exam: Normal inspection. Normal color. Warm and dry. Labs/Diagnostic Data Labs Test 10/20/24 07:15 10/19/24 14:44 10/19/24 10:33 Range/Units Sodium Level 141 136-145 mmol/L Potassium Level 3.7 3.5-5.1 mmol/L Chloride Level 106 98-107 mmol/L Carbon Dioxide Level 23 20-31 mmol/L Anion Gap 12 5-15 Blood Urea Nitrogen 15 9-23 mg/dL Creatinine 0.84 0.550-1.02 mg/dL Glomerular Filtration Rate Calc 87 >90 mL/min BUN/Creatinine Ratio 17.9 10.0-20.0 Serum Glucose 81 74-106 mg/dL Calcium Level 9.7 8.7-10.4 mg/dL Triglycerides Level 74 < 150 mg/dL Cholesterol Level 147 < 200 mg/dL LDL Cholesterol 72 < 100 mg/dL HDL Cholesterol 59 40-59 mg/dL Troponin I High Sensitivity < 3 L </=34 ng/L Thyroid Stimulating Hormone (TSH) 2.78 0.55-4.78 uIU/mL White Blood Count 5.4 4.4-10.8 10^3/uL Red Blood Count 5.04 4.0-5.20 10^6/uL Hemoglobin 9.5 L 12.2-16.2 g/dL Hematocrit 32.5 L 36.0-46.0 % Mean Corpuscular Volume 64.4 L 80.0-100.0 fL Mean Corpuscular Hemoglobin 18.9 L 28.0-32.0 pg Mean Corpuscular Hemoglobin Concent 29.3 L 32.0-36.0 g/dL Red Cell Distribution Width 17.9 H 11.8-14.3 % Platelet Count 474 H 140-450 10^3/uL Mean Platelet Volume 8.0 6.9-10.8 fL Neutrophils (%) (Auto) 75.1 37.0-80.0 % Lymphocytes (%) (Auto) 17.7 10.0-50.0 % Monocytes (%) (Auto) 6.0 0.0-12.0 % Eosinophils (%) (Auto) 0.9 0.0-7.0 % Basophils (%) (Auto) 0.3 0.0-2.0 % Neutrophils # (Auto) 4.0 1.6-8.6 10 ^3/uL Lymphocytes # (Auto) 0.9 0.4-5.4 10 ^3/uL Monocytes # (Auto) 0.3 0-1.3 10 ^3/uL Eosinophils # (Auto) 0 0-0.8 10 ^3/uL Basophils # (Auto) 0 0-0.2 10 ^3/uL Nucleated Red Blood Cells 0.0 % Platelet Estimate Increased Hypochromasia (manual) Marked Microcytosis Marked Assessment Chest pain, likely noncardiac Ruled out structural heart disease Seizures Obesity Plan/Recommendation We will continue with the following plan/recommendations (Dr. Alvarez): Case discussed with . Transthoracic echocardiogram reveals an EF of 60%. Given the patient's atypical clinical presentation, negative troponin level, low HEART score (2 points), and unremarkable twelve lead electrocardiogram, doubt ACS. There is no further inpatient cardiac workup indicated at this time. Consider differential diagnosis such as costochondritis. The patient will be initiated on NSAID therapy. Consider outpatient cardiac workup if deemed necessary. Thank you for allowing us to care for this patient. Please call with any questions or concerns. Critical care time spent: 44 minutes This medical document was created using an electronic medical record system with voice recognition software and computerized dictation system. Although this document has been carefully reviewed, there might still be some phonetic and typographical errors. Occasional wrong-word or ``sound-alike substitutions may have occurred due to the inherent limitations of voice recognition software. These areas are purely typographical due to imperfections of the software programs and do not reflect any compromise in the patient's medical care. Please read the chart carefully and recognize, using context, where these substitutions have occurred. Plan discussed with: Patient NYHA Physical activity limitations: NA Date of Service: Oct 20, 2024 Billing Provider: TANIA DUMONT Cardiology Common Codes: [id number] INP/OBS CARE (High) Cardiology Consultation Codes: [id number] CONSULT <45MIN TANIA DUMONT Oct 20, 2024 16:41
[2024-10-20 17:00] VITALS: BP 99/53; PULSE 66; RESP 15; TEMP 97.5; O2SAT 100
[2024-10-20] MEDS: SODIUM CHLORIDE 0.9% 1,000 ML IV SCH (17:18)
[2024-10-20] MEDS: KETOROLAC TROMETH 30 MG/ML 1ML VIAL IV PRN (17:18)
[2024-10-21] VITALS (9 sets, daily range): BP systolic 91–119; BP diastolic 26–60; PULSE 64–71; RESP 17–19; TEMP 97.8–98; O2SAT 96–100
[2024-10-21] MEDS: ACETAMINOPHEN 325 MG TAB PO PRN (00:41)
[2024-10-21] MEDS ORDERED: TRAM-626 PO (08:28)
--- NOTE | 2024-10-21 08:37 | DVHPN2 ---
Reviewed: Care Plan, H&P, Labs, Medications, Previous Orders, Radiology Changes from previous H/P or p: No Changes Objective Vitals Vital Signs Date Time Temp Pulse Resp B/P (MAP) Pulse Ox O2 Delivery O2 Flow Rate FiO2 10/21/24 05:00 97.9 64 18 91/52 (65) 100 97.9 10/20/24 01:31 Room Air* 0 21 Intake/Output Intake and Output 10/21/24 07:00 Intake Total 110 ml Balance 110 ml Intake Oral 110 ml Medications Current Medications Medications Dose Ordered Sig/Marlena Route Start Time Stop Time Status Last Admin Dose Admin Aspirin 81 mg DAILY PO 10/20/24 10:00 10/20/24 09:16 81 MG Atorvastatin Calcium 10 mg HS PO 10/19/24 22:00 10/20/24 22:09 10 MG Patient Own Medication 200 mg BID PO 10/19/24 22:00 Lamotrigine 100 mg Q12HR PO 10/19/24 22:00 10/20/24 22:16 100 MG Ondansetron HCl 4 mg Q4HP PRN IV 10/19/24 19:15 Nitroglycerin 0.4 mg Q5MINP PRN SL 10/19/24 19:15 10/19/24 22:39 0.4 MG Morphine Sulfate 2 mg Q30M PRN IV 10/19/24 19:15 Sodium Chloride 1,000 ml @ 150 mls/hr Q6H40M IV 10/20/24 16:00 10/20/24 17:18 150 MLS/HR Ketorolac Tromethamine 15 mg Q6HPRN PRN IV 10/20/24 16:15 10/25/24 16:14 10/20/24 22:27 15 MG Acetaminophen 650 mg Q6HP PRN PO 10/20/24 16:30 10/21/24 00:41 650 MG Laboratory Results Laboratory Tests 10/19/24 10:33 10/20/24 07:15 Labs and/or images reviewed: Labs reviewed by me, Image(s) reviewed by me Assessment/Plan Assessment/Plan Noncardiac chest pain Troponin negative x3, treatment per ACS protocol, cardiology consult for Dr. Antonio mccormick, placed on Toradol 15 mg IV q.6, echo 60 percent ejection fraction, no further cardiac workup History of seizures Acute urinary retention: Per patient she has not urinated since last 24 hrs, CT abdomen pelvis without contrast IV fluid bolus Will check urine drug screen Plan discussed with: Patient My Orders Orders - CASEY SULLIVAN MD Procedure Category Date Status Time Drug Screen LAB 10/20/24 Logged 12:58 * Cardiology Consult CONS 10/20/24 Transmitted 13:17 Sodium Chloride 0.9% PHA 10/20/24 In Process 16:00 Date of Service: Oct 21, 2024 Billing Provider: CASEY SULLIVAN MD Common Visit Codes: [id number] INP/OBS CARE(HIGH) CASEY SULLIVAN MD Oct 21, 2024 08:37
[2024-10-21 10:17] LABS: Chloride 110 mmol/L (98-107); Potassium 3.1 mmol/L (3.5-5.1); Sodium 143 mmol/L (136-145)
[2024-10-21 10:18] LABS: Anion Gap 10 (5-15); Calcium 9.1 mg/dL (8.7-10.4); Carbon Dioxide 23 mmol/L (20-31)
[2024-10-21 10:23] LABS: BUN/Creatinine Ratio 15.9 (10.0-20.0); Blood Urea Nitrogen 14 mg/dL (9-23); Glucose 88 mg/dL (74-106)
[2024-10-21] MEDS: SODIUM CHLORIDE 0.9% 2,000 ML IV ONE (10:39)
--- NOTE | 2024-10-21 12:57 | DVH ---
Exam: CT CT AB PEL WO CON-NO ORAL OR IV History: Oliguria Comparison Study: None available at time of dictation. TECHNIQUE: Multidetector CT of the abdomen was performed from lung bases to pubic symphysis. Imaging was performed without IV contrast. Axial, coronal and sagittal multiplanar reformats were obtained fr om the axial data set by the technologist. Radiation Dose Information: CT Dose: CTDI volume is 21.89 mGy. Dose-length product is 1225.97 mGy*cm FINDINGS: Evaluation of solid organs is limited due to lack of intravenous contrast use. Findings: Lung Bases: No acute or significant lung base finding. Normal heart size. No pleural or pericardial effusion. Liver: The liver is normal in size. No focal lesions. Gallbladder and Biliary Tree: Gallstones are present Spleen: Unremarkable Pancreas: The pancreas is grossly normal in appearance. Adrenal Glands: Unremarkable Kidneys: Punctate nonobstructing left renal calculi Bladder: Grossly unremarkable for degree of distention. Bowel: The stomach is grossly normal in appearance. Small bowel and colon are normal in caliber and d istribution. The appendix is not visualized; however, no secondary findings of acute appendicitis id entified. Ascites: Absent Lymphadenopathy: No mesenteric, retroperitoneal or periportal lymphadenopathy. Abdominal Wall and Mesentery: Unremarkable. Vasculature: The visualized abdominal aorta is normal in size and caliber. Evaluation of abdominal a nd pelvic vessels is limited due to lack of intravenous contrast. Pelvic Organs: Unremarkable Musculoskeletal: No aggressive focal bony lesions, acute fractures or dislocation. Soft tissues: Unremarkable IMPRESSION: Cholelithiasis. Nonobstructing left renal calculi Radiation optimization: All CT scans at this facility use at least one of these dose optimization isaias hniques: automated exposure control mA and/or kV adjustment per patient size (includes targeted exam s where dose is matched to clinical indication) or iterative reconstruction.
--- NOTE | 2024-10-21 13:25 | DVHINCON2 ---
Date of service: Oct 21, [address] Sullivan Reason for Consultation Oliguria, hypokalemia History of Present Illness Patient is a 48 y/o female with a past medical hx of seizures. Pt was admitted for CP x 5 days. On admission pt was found to have a BUN of 12, creat 1.14, GFR 60. Repeat labs on 10/21 creat 0.88, GFR 82. Nephrology consult received for oliguria. Pt reports she has been drinking fluids, however has not been able to urinate. Pt denies hx of CKD, HTN, and DM. Pt denies hx of NSAID use. Past Medical History Seizures Past Surgical History Denies Allergies: Coded Allergies: NO KNOWN ALLERGIES (Unverified , 05/06/21) Home Meds Active Scripts Tramadol HCl (Tramadol HCl) 50 Mg Tab, 50 MG PO QID, #40 TAB Prov:CASEY SULLIVAN MD 10/21/24 Reported Medications Lamotrigine (Lamictal) 100 Mg Tab, 3 TAB PO QHSP, #30 TAB 1 Refill 02/26/24 Lamotrigine (Lamictal) 100 Mg Tab, 1 TAB PO QAM, #30 TAB 1 Refill 02/26/24 Brivaracetam (Briviact) 100 Mg Tab, 200 MG PO BID, TAB 02/26/24 Zonisamide (Zonisamide) 100 Mg Cap, 100 MG PO, CAP 02/25/24 Cholecalciferol (VITAMIN D3) 2,000 Unit Tab, 1 TAB PO DAILY, #30 TAB 5 Refills 02/25/24 Clobazam (ONFI) 10 Mg Tab, 10 MG PO, TAB 02/25/24 Cholecalciferol (VITAMIN D3) 2,000 Unit Tab, 1 TAB PO DAILY, #30 TAB 5 Refills 10/11/23 Brivaracetam (Briviact) 100 Mg Tab, 100 MG PO BID, TAB 12/25/18 Current Medications Current Medications Medications (Trade) Dose Ordered Sig/Marlena Route PRN Reason Start Time Stop Time Status Last Admin Potassium Chloride (Klor-Con Tablet) 40 meq BID PO 10/21/24 22:00 10/21/24 21:18 Family History: Cancer Grandmother, Onset:Unknown Diabetes mellitus Grandmother, Onset:Unknown Uncle, Onset:Unknown Family history: Diabetes mellitus Family history: Hypertension G8 MOTHER, Onset:Unknown Hypertension Review of Systems 10 systems reviewed and negative except as per HPI H&P Exam Vital Signs/I&O Vital Sign Date Time Temp Pulse Resp B/P (MAP) Pulse Ox O2 Delivery O2 Flow Rate FiO2 10/21/24 21:00 98.0 71 18 110/50 (70) 96 98.0 10/21/24 20:00 Room Air* 0 21 Intake and Output 10/21/24 10/22/24 19:00 07:00 Intake Total 2100 ml Balance 2100 ml Intake Oral 100 ml IV Total 2000 ml Physical Exam Gen: Appears stated age, no acute distress HEENT:Pupils equal and reactive to light and accommodation Lungs: Bilateral air entry, no rales CVS: RRR, normal S1 and S2 Abd:normoactive bowel sounds, soft, nontender, nondistended Ext: No edema Neuro: A&O x4 Labs/Diagnostic Data Labs/Diagnostic Data Laboratory Tests Test 10/21/24 09:49 10/20/24 07:15 10/19/24 14:44 10/19/24 12:46 Range/Units Sodium Level 143 141 136-145 mmol/L Potassium Level 3.1 L 3.7 3.5-5.1 mmol/L Chloride Level 110 H 106 98-107 mmol/L Carbon Dioxide Level 23 23 20-31 mmol/L Anion Gap 10 12 5-15 Blood Urea Nitrogen 14 15 9-23 mg/dL Creatinine 0.88 0.84 0.550-1.02 mg/dL Glomerular Filtration Rate Calc 82 87 >90 mL/min BUN/Creatinine Ratio 15.9 17.9 10.0-20.0 Serum Glucose 88 81 74-106 mg/dL Calcium Level 9.1 9.7 8.7-10.4 mg/dL Beta HCG, Quantitative 1.0 L 1.5-4.2 mIU/mL Triglycerides Level 74 69 < 150 mg/dL Cholesterol Level 147 149 < 200 mg/dL LDL Cholesterol 72 71 < 100 mg/dL HDL Cholesterol 59 63 H 40-59 mg/dL Troponin I High Sensitivity < 3 L < 3 L </=34 ng/L Thyroid Stimulating Hormone (TSH) 2.78 0.55-4.78 uIU/mL Test 10/19/24 10:33 Range/Units White Blood Count 5.4 4.4-10.8 10^3/uL Red Blood Count 5.04 4.0-5.20 10^6/uL Hemoglobin 9.5 L 12.2-16.2 g/dL Hematocrit 32.5 L 36.0-46.0 % Mean Corpuscular Volume 64.4 L 80.0-100.0 fL Mean Corpuscular Hemoglobin 18.9 L 28.0-32.0 pg Mean Corpuscular Hemoglobin Concent 29.3 L 32.0-36.0 g/dL Red Cell Distribution Width 17.9 H 11.8-14.3 % Platelet Count 474 H 140-450 10^3/uL Mean Platelet Volume 8.0 6.9-10.8 fL Neutrophils (%) (Auto) 75.1 37.0-80.0 % Lymphocytes (%) (Auto) 17.7 10.0-50.0 % Monocytes (%) (Auto) 6.0 0.0-12.0 % Eosinophils (%) (Auto) 0.9 0.0-7.0 % Basophils (%) (Auto) 0.3 0.0-2.0 % Neutrophils # (Auto) 4.0 1.6-8.6 10 ^3/uL Lymphocytes # (Auto) 0.9 0.4-5.4 10 ^3/uL Monocytes # (Auto) 0.3 0-1.3 10 ^3/uL Eosinophils # (Auto) 0 0-0.8 10 ^3/uL Basophils # (Auto) 0 0-0.2 10 ^3/uL Nucleated Red Blood Cells 0.0 % Platelet Estimate Increased Hypochromasia (manual) Marked Microcytosis Marked Sodium Level 140 136-145 mmol/L Potassium Level 3.5 3.5-5.1 mmol/L Chloride Level 106 98-107 mmol/L Carbon Dioxide Level 22 20-31 mmol/L Anion Gap 12 5-15 Blood Urea Nitrogen 12 9-23 mg/dL Creatinine 1.14 H 0.550-1.02 mg/dL Glomerular Filtration Rate Calc 60 >90 mL/min BUN/Creatinine Ratio 10.5 10.0-20.0 Serum Glucose 100 74-106 mg/dL Calcium Level 10.0 8.7-10.4 mg/dL Troponin I High Sensitivity < 3 L </=34 ng/L Assessment IMP Hypokalemia unknown baseline GFR ? Oliguria- urine output not being measured CP- cardiology following Hx of seizures REC Strict I&O's Renal/bladder U/S Potassium supplementation BMP,Mg, TSH, uric acid, U/A, urine protein, urine creat, urine Na Urology evaluation- L renal calculi per CT scan Avoidance of nephrotoxins Will continue to follow Plan discussed with: Patient ADRIANAERLINDA SHAW Oct 21, 2024 13:25
[2024-10-21] MEDS: POTASSIUM CHL 20 Meq TABLET PO SCH (21:18)
[2024-10-22] VITALS (8 sets, daily range): BP systolic 100–113; BP diastolic 50–67; PULSE 59–81; RESP 17–19; TEMP 97.2–98.8; O2SAT 94–100
--- NOTE | 2024-10-22 01:59 | DVH ---
INDICATION: oliguria TECHNIQUE: Multiple real-time sonographic images of the kidneys and bladder were obtained. COMPARISON: None FINDINGS: Examination was limited due to patient body habitus. RIGHT kidney measures 10.8 cm in length. No hydronephrosis. Normal parenchymal echotexture and cortical thickness. LEFT kidney measures 10.2 cm in length. No hydronephrosis. Normal parenchymal echotexture and cortical thickness. No large intraluminal masses are seen in the bladder. Urinary bladder wall thickness 1.7 mm. The urinary bladder is distended and postvoid volume was not characterized. IMPRESSION: 1. Unremarkable examination.
[2024-10-22 06:00] LABS: Potassium 3.7 mmol/L (3.5-5.1); Sodium 144 mmol/L (136-145)
[2024-10-22 06:01] LABS: Anion Gap 9 (5-15); Carbon Dioxide 23 mmol/L (20-31)
[2024-10-22 06:02] LABS: Calcium 8.9 mg/dL (8.7-10.4)
[2024-10-22 06:06] LABS: Glucose 83 mg/dL (74-106); Uric Acid 5.4 mg/dL (3.1-7.8)
[2024-10-22 06:07] LABS: BUN/Creatinine Ratio 16.7 (10.0-20.0); Blood Urea Nitrogen 13 mg/dL (9-23); Magnesium 1.9 mg/dL (1.6-2.6)
[2024-10-22 06:11] LABS: Chloride 112 mmol/L (98-107)
--- NOTE | 2024-10-22 08:35 | DVHPN2 ---
Reviewed: Care Plan, H&P, Labs, Medications, Previous Orders, Radiology Changes from previous H/P or p: No Changes Objective Vitals Vital Signs Date Time Temp Pulse Resp B/P (MAP) Pulse Ox O2 Delivery O2 Flow Rate FiO2 10/22/24 05:00 98.8 61 18 100/51 (67) 96 98.8 10/21/24 20:00 Room Air* 0 21 Intake/Output Intake and Output 10/22/24 07:00 Intake Total 2900 ml Balance 2900 ml Intake Oral 900 ml IV Total 2000 ml # Voids 1 Medications Current Medications Medications Dose Ordered Sig/Marlena Route Start Time Stop Time Status Last Admin Dose Admin Aspirin 81 mg DAILY PO 10/20/24 10:00 10/21/24 11:13 81 MG Atorvastatin Calcium 10 mg HS PO 10/19/24 22:00 10/21/24 21:19 10 MG Patient Own Medication 200 mg BID PO 10/19/24 22:00 Lamotrigine 100 mg Q12HR PO 10/19/24 22:00 10/21/24 21:19 100 MG Ondansetron HCl 4 mg Q4HP PRN IV 10/19/24 19:15 Nitroglycerin 0.4 mg Q5MINP PRN SL 10/19/24 19:15 10/19/24 22:39 0.4 MG Morphine Sulfate 2 mg Q30M PRN IV 10/19/24 19:15 Ketorolac Tromethamine 15 mg Q6HPRN PRN IV 10/20/24 16:15 10/25/24 16:14 10/21/24 18:45 15 MG Acetaminophen 650 mg Q6HP PRN PO 10/20/24 16:30 10/21/24 00:41 650 MG Potassium Chloride 40 meq BID PO 10/21/24 22:00 10/21/24 21:18 40 MEQ Sodium Chloride 1,000 ml @ 150 mls/hr Q6H40M IV 10/22/24 08:30 UNV Laboratory Results Laboratory Tests 10/19/24 10:33 10/22/24 05:20 Chemistry Test 10/21/24 09:49 10/22/24 05:20 Calcium Level 9.1 mg/dL (8.7-10.4) 8.9 mg/dL (8.7-10.4) Magnesium Level 1.9 mg/dL (1.6-2.6) HgA1c, TSH Test 10/22/24 05:20 Thyroid Stimulating Hormone (TSH) 2.54 uIU/mL (0.55-4.78) Labs and/or images reviewed: Labs reviewed by me, Image(s) reviewed by me Assessment/Plan Assessment/Plan Noncardiac chest pain Troponin negative x3, treatment per ACS protocol, cardiology consult for Dr. Alvarez appreciated, placed on Toradol 15 mg IV q.6, echo 60 percent ejection fraction, no further cardiac workup History of seizures Oliguria: Nephrology consult appreciated NS 150 mL/hour, TSH normal, uric acid normal; patient still has very scant urine Cholelithiasis: Patient was informed about her gallstones Punctate left renal calculi: Urology consult Possible dehydration NS 150 mL per hour Will check urinalysis urine culture and urine drug screen JONO Hernandez at bedside Plan discussed with: Patient My Orders Orders - CASEY SULLIVAN MD Procedure Category Date Status Time Ct Ab Pel Wo Con-No CT 10/21/24 Resulted Oral Or Iv 08:40 *Dr. [facility] CONS 10/21/24 Transmitted -[place] 08:42 Urinalysis LAB 10/22/24 Logged 08:29 Urine Bacterial TRACY 10/22/24 Logged Culture 08:29 Sodium Chloride 0.9% PHA 10/22/24 Logged 08:30 Comprehensive LAB 10/23/24 Verified Metabolic Panel 04:00 * Urology Consult CONS 10/22/24 Verified 08:31 Date of Service: Oct 22, 2024 Billing Provider: CASEY SULLIVAN MD Common Visit Codes: [id number] INP/OBS CARE(HIGH) CASEY SULLIVAN MD Oct 22, 2024 08:35
[2024-10-22 08:52] LABS: Urine Bacteria FEW /hpf (None Seen); Urine Blood 3+ /uL (Negative); Urine Color Yellow (Yellow); Urine Mucus MODERATE (None Seen); Urine Protein, UAD TRACE (Negative); Urine Specific Gravity 1.032 (1.001-1.035); Urine Squamous Epithelial Cell FEW /hpf (<5); Urine Urobilinogen Normal (Negative); Urine WBC 24 /HPF (0-5)
[2024-10-22 08:53] LABS: Urine Clarity Cloudy (Clear)
[2024-10-22 09:03] LABS: Amphetamine Screen, Urine Neg (NEGATIVE); Barbiturate Scree,Urine Neg (NEGATIVE); Benzodiazephine Screen, Urine Pos (NEGATIVE); Cannabinoid Screen, Urine Neg (NEGATIVE); Cocaine Screen, Urine Neg (NEGATIVE); Opiate Scree,Urine Neg (NEGATIVE); Phencyclidine Screen, Urine Neg (NEGATIVE)
[2024-10-22 09:19] LABS: Creatinine, Urine 309.81 mg/dL (30.0-125.0)
[2024-10-22] MEDS: SODIUM CHLORIDE 0.9% 1,000 ML IV SCH (09:19)
--- NOTE | 2024-10-22 14:09 | DVHPN2 ---
Progress Note Date Seen: Oct 22, 2024 Medical Necessity Reason Pt with a Central, PICC or Fol: No Subjective Review of Systems Pt reports was able to urinate today. Pt reports she is menstruating, U/A + blood. Patient reports: No new complaints, Feels better Objective vital signs Vital Sign Date Time Temp Pulse Resp B/P (MAP) Pulse Ox O2 Delivery O2 Flow Rate FiO2 10/22/24 09:00 97.8 62 17 108/54 (72) 99 97.8 10/22/24 08:00 Room Air* 0 21 Total Intake and Output 10/21/24 10/21/24 10/22/24 15:00 23:00 07:00 Intake Total 2000 ml 100 ml 800 ml Balance 2000 ml 100 ml 800 ml medications Current Medications Medications Dose Ordered Sig/Marlena Route Start Time Stop Time Status Last Admin Dose Admin Aspirin 81 mg DAILY PO 10/20/24 10:00 10/22/24 09:07 81 MG Atorvastatin Calcium 10 mg HS PO 10/19/24 22:00 10/21/24 21:19 10 MG Patient Own Medication 200 mg BID PO 10/19/24 22:00 Lamotrigine 100 mg Q12HR PO 10/19/24 22:00 10/22/24 09:06 100 MG Ondansetron HCl 4 mg Q4HP PRN IV 10/19/24 19:15 Nitroglycerin 0.4 mg Q5MINP PRN SL 10/19/24 19:15 10/19/24 22:39 0.4 MG Morphine Sulfate 2 mg Q30M PRN IV 10/19/24 19:15 Ketorolac Tromethamine 15 mg Q6HPRN PRN IV 10/20/24 16:15 10/25/24 16:14 10/21/24 18:45 15 MG Acetaminophen 650 mg Q6HP PRN PO 10/20/24 16:30 10/21/24 00:41 650 MG Potassium Chloride 40 meq BID PO 10/21/24 22:00 10/22/24 09:07 40 MEQ Sodium Chloride 1,000 ml @ 150 mls/hr Q6H40M IV 10/22/24 08:30 10/22/24 09:19 150 MLS/HR Examination Gen: Appears stated age, no acute distress Lungs: Bilateral air entry, no rales CVS: RRR, normal S1 and S2 Abd:normoactive bowel sounds, soft, nontender, nondistended Ext: No edema Neuro: A&O x 4 laboratory and microbiology Laboratory Tests 10/22/24 05:20 10/19/24 10:33 Test 10/22/24 05:20 Range/Units Serum Glucose 83 74-106 mg/dL Labs and/or images reviewed: Labs reviewed by me Problem List/Assessment/Plan Problem List/Assessment/Plan IMP Hypokalemia-resolved unknown baseline GFR- improved GFR 95 ? Oliguria- pt was able to urinate this morning CP- cardiology following Hx of seizures REC BMP Strict I&O's Continue potassium supplementation Avoidance of nephrotoxins Plan discussed with: Patient My Orders My Orders Orders - ERLINDA WRIGHT Procedure Category Date Status Time Kidney US 10/22/24 Resulted 06:00 Communication Order ORDERS 10/22/24 Transmitted 00:22 ERLINDA WRIGHT Oct 22, 2024 14:09
--- NOTE | 2024-10-22 18:35 | DVHINCON2 ---
Date of service: Oct 22, 2024 Referring Physician yumi Reason for Consultation difficulty voiding History of Present Illness admitted here several days ago and had difficulty voiding which then improved today;pt normally has no voiding issues previously,no prior visits,hematuria,or infections Past Medical History reviewed Past Surgical History reviewed Family History: Cancer Grandmother, Onset:Unknown Diabetes mellitus Grandmother, Onset:Unknown Uncle, Onset:Unknown Family history: Diabetes mellitus Family history: Hypertension G8 MOTHER, Onset:Unknown Hypertension Allergies: Coded Allergies: NO KNOWN ALLERGIES (Unverified , 05/06/21) Home Meds Active Scripts Tramadol HCl (Tramadol HCl) 50 Mg Tab, 50 MG PO QID, #40 TAB Prov:CASEY SULLIVAN MD 10/21/24 Reported Medications Lamotrigine (Lamictal) 100 Mg Tab, 3 TAB PO QHSP, #30 TAB 1 Refill 02/26/24 Lamotrigine (Lamictal) 100 Mg Tab, 1 TAB PO QAM, #30 TAB 1 Refill 02/26/24 Brivaracetam (Briviact) 100 Mg Tab, 200 MG PO BID, TAB 02/26/24 Zonisamide (Zonisamide) 100 Mg Cap, 100 MG PO, CAP 02/25/24 Cholecalciferol (VITAMIN D3) 2,000 Unit Tab, 1 TAB PO DAILY, #30 TAB 5 Refills 02/25/24 Clobazam (ONFI) 10 Mg Tab, 10 MG PO, TAB 02/25/24 Cholecalciferol (VITAMIN D3) 2,000 Unit Tab, 1 TAB PO DAILY, #30 TAB 5 Refills 10/11/23 Brivaracetam (Briviact) 100 Mg Tab, 100 MG PO BID, TAB 12/25/18 Current Medications Current Medications Medications (Trade) Dose Ordered Sig/Marlena Route PRN Reason Start Time Stop Time Status Last Admin Potassium Chloride (Klor-Con Tablet) 40 meq BID PO 10/21/24 22:00 10/22/24 09:07 Sodium Chloride 1,000 ml @ 150 mls/hr Q6H40M IV 10/22/24 08:30 10/22/24 09:19 Review of Systems reviewed Vital Signs Vital Signs Date Time Temp Pulse Resp B/P (MAP) Pulse Ox O2 Delivery O2 Flow Rate FiO2 10/22/24 17:03 98.3 77 19 101/50 (34) 100 98.3 10/22/24 08:00 Room Air* 0 21 Labs/Diagnostic Data Labs Test 10/22/24 08:39 10/22/24 05:20 10/21/24 09:49 10/20/24 07:15 Range/Units Urine Color Yellow Yellow Urine Clarity Cloudy H Clear Urine pH 6.0 5.0-9.0 Urine Specific [place] 1.032 1.001-1.035 Urine Protein Trace H Negative Urine Ketones Negative Negative Urine Blood 3+ H Negative /uL Urine Nitrite Negative Negative Urine Bilirubin Negative Negative Urine Urobilinogen Normal Negative mg/dL Urine Leukocyte Esterase 2+ Negative /uL Urine RBC 160 0 - 4 /hpf Urine Microscopic WBC 24 H 0-5 /HPF Urine Squamous Epithelial Cells Few <5 /hpf Urine Bacteria Few H None Seen /hpf Urine Mucus Moderate None Seen Urine Creatinine 309.81 H 30.0-125.0 mg/dL Urine Sodium 128 40-220 mmol/L Urine Glucose Normal Normal mg/dL Urine Opiates Screen Neg NEGATIVE Urine Fentanyl Screen Neg NEGATIVE Urine Barbiturates Screen Neg NEGATIVE Urine Phencyclidine Screen Neg NEGATIVE Urine Amphetamines Screen Neg NEGATIVE Urine Benzodiazepines Screen Pos NEGATIVE Urine Cocaine Screen Neg NEGATIVE Urine Cannabinoids Screen Neg NEGATIVE Sodium Level 144 136-145 mmol/L Potassium Level 3.7 3.5-5.1 mmol/L Chloride Level 112 H 98-107 mmol/L Carbon Dioxide Level 23 20-31 mmol/L Anion Gap 9 5-15 Blood Urea Nitrogen 13 9-23 mg/dL Creatinine 0.78 0.550-1.02 mg/dL Glomerular Filtration Rate Calc 95 >90 mL/min BUN/Creatinine Ratio 16.7 10.0-20.0 Serum Glucose 83 74-106 mg/dL Uric Acid 5.4 3.1-7.8 mg/dL Calcium Level 8.9 8.7-10.4 mg/dL Magnesium Level 1.9 1.6-2.6 mg/dL Thyroid Stimulating Hormone (TSH) 2.54 0.55-4.78 uIU/mL Beta HCG, Quantitative 1.0 L 1.5-4.2 mIU/mL Triglycerides Level 74 < 150 mg/dL Cholesterol Level 147 < 200 mg/dL LDL Cholesterol 72 < 100 mg/dL HDL Cholesterol 59 40-59 mg/dL Test 10/19/24 14:44 4/16/25 10:33 Range/Units Troponin I High Sensitivity < 3 L </=34 ng/L White Blood Count 5.4 4.4-10.8 10^3/uL Red Blood Count 5.04 4.0-5.20 10^6/uL Hemoglobin 9.5 L 12.2-16.2 g/dL Hematocrit 32.5 L 36.0-46.0 % Mean Corpuscular Volume 64.4 L 80.0-100.0 fL Mean Corpuscular Hemoglobin 18.9 L 28.0-32.0 pg Mean Corpuscular Hemoglobin Concent 29.3 L 32.0-36.0 g/dL Red Cell Distribution Width 17.9 H 11.8-14.3 % Platelet Count 474 H 140-450 10^3/uL Mean Platelet Volume 8.0 6.9-10.8 fL Neutrophils (%) (Auto) 75.1 37.0-80.0 % Lymphocytes (%) (Auto) 17.7 10.0-50.0 % Monocytes (%) (Auto) 6.0 0.0-12.0 % Eosinophils (%) (Auto) 0.9 0.0-7.0 % Basophils (%) (Auto) 0.3 0.0-2.0 % Neutrophils # (Auto) 4.0 1.6-8.6 10 ^3/uL Lymphocytes # (Auto) 0.9 0.4-5.4 10 ^3/uL Monocytes # (Auto) 0.3 0-1.3 10 ^3/uL Eosinophils # (Auto) 0 0-0.8 10 ^3/uL Basophils # (Auto) 0 0-0.2 10 ^3/uL Nucleated Red Blood Cells 0.0 % Platelet Estimate Increased Hypochromasia (manual) Marked Microcytosis Marked Assessment transient dificullty voiding,UTI Plan/Recommendation cont treatment Plan discussed with: Patient ALBERT SOLANO MD Oct 22, 2024 18:35
[2024-10-23] VITALS (8 sets, daily range): BP systolic 98–112; BP diastolic 39–58; PULSE 65–75; RESP 16–19; TEMP 96.9–97.7; O2SAT 98–100
[2024-10-23 06:55] LABS: Albumin 3.6 g/dL (3.2-4.8); Alkaline Phosphatase 93 U/L (46-116); Anion Gap 8 (5-15); BUN/Creatinine Ratio 11.6 (10.0-20.0); Calcium 8.7 mg/dL (8.7-10.4); Carbon Dioxide 21 mmol/L (20-31); Glucose 86 mg/dL (74-106); Sodium 142 mmol/L (136-145); Total Protein 6.2 g/dL (5.7-8.2)
[2024-10-23 06:56] LABS: Bilirubin, Total 0.3 mg/dL (0.2-1.0)
[2024-10-23 06:58] LABS: Alanine Aminotransferase < 9 U/L (7-40); Aspartate Aminotransferase 11 U/L (13-40); Blood Urea Nitrogen 8 mg/dL (9-23); Chloride 113 mmol/L (98-107)
--- NOTE | 2024-10-23 09:12 | DVHPN2 ---
Reviewed: Care Plan, H&P, Labs, Medications, Previous Orders, Radiology Changes from previous H/P or p: No Changes Objective Vitals Vital Signs Date Time Temp Pulse Resp B/P (MAP) Pulse Ox O2 Delivery O2 Flow Rate FiO2 10/23/24 07:57 18 Room Air* 0 21 10/23/24 05:00 96.9 65 103/50 (67) 99 96.9 Intake/Output Intake and Output 10/23/24 07:00 Intake Total 500 ml Output Total 400 ml Balance 100 ml Intake Oral 500 ml Output Urine Total 400 ml Medications Current Medications Medications Dose Ordered Sig/Marlena Route Start Time Stop Time Status Last Admin Dose Admin Aspirin 81 mg DAILY PO 10/20/24 10:00 10/22/24 09:07 81 MG Atorvastatin Calcium 10 mg HS PO 10/19/24 22:00 10/21/24 21:19 10 MG Patient Own Medication 200 mg BID PO 10/19/24 22:00 Lamotrigine 100 mg Q12HR PO 10/19/24 22:00 10/22/24 22:32 100 MG Ondansetron HCl 4 mg Q4HP PRN IV 10/19/24 19:15 Nitroglycerin 0.4 mg Q5MINP PRN SL 10/19/24 19:15 10/19/24 22:39 0.4 MG Morphine Sulfate 2 mg Q30M PRN IV 10/19/24 19:15 Ketorolac Tromethamine 15 mg Q6HPRN PRN IV 10/20/24 16:15 10/25/24 16:14 10/23/24 00:55 15 MG Acetaminophen 650 mg Q6HP PRN PO 10/20/24 16:30 10/21/24 00:41 650 MG Potassium Chloride 40 meq BID PO 10/21/24 22:00 10/22/24 22:32 40 MEQ Sodium Chloride 1,000 ml @ 150 mls/hr Q6H40M IV 10/22/24 08:30 10/22/24 09:19 150 MLS/HR Laboratory Results Laboratory Tests 10/19/24 10:33 10/23/24 06:05 Chemistry Test 10/23/24 06:05 Albumin 3.6 g/dL (3.2-4.8) Calcium Level 8.7 mg/dL (8.7-10.4) Total Protein 6.2 g/dL (5.7-8.2) LFT Test 10/23/24 06:05 Alanine Aminotransferase (ALT) < 9 U/L (7-40) Alkaline Phosphatase 93 U/L (46-116) Aspartate Amino Transferase (AST) 11 U/L (13-40) L Total Bilirubin 0.3 mg/dL (0.2-1.0) Urinalysis Test 10/22/24 08:39 Urine Color Yellow (Yellow) Urine Clarity Cloudy (Clear) H Urine pH 6.0 (5.0-9.0) Urine Specific [place] 1.032 (1.001-1.035) Urine Protein Trace (Negative) H Urine Ketones Negative (Negative) Urine Blood 3+ /uL (Negative) H Urine Nitrite Negative (Negative) Urine Bilirubin Negative (Negative) Urine Urobilinogen Normal mg/dL (Negative) Urine Leukocyte Esterase 2+ /uL (Negative) Urine RBC 160 /hpf (0 - 4) Urine Microscopic WBC 24 /HPF (0-5) H Urine Squamous Epithelial Cells Few /hpf (<5) Urine Bacteria Few /hpf (None Seen) H Urine Mucus Moderate (None Seen) Urine Creatinine 309.81 mg/dL (30.0-125.0) H Urine Sodium 128 mmol/L (40-220) Urine Glucose Normal mg/dL (Normal) Labs and/or images reviewed: Labs reviewed by me, Image(s) reviewed by me Assessment/Plan Assessment/Plan Noncardiac chest pain Troponin negative x3, treatment per ACS protocol, cardiology consult for Dr. Alvarez appreciated, placed on Toradol 15 mg IV q.6, echo 60 percent ejection fraction, no further cardiac workup History of seizures Oliguria: Nephrology consult appreciated NS 150 mL/hour, TSH normal, uric acid normal; patient is now urinating normally Cholelithiasis: Patient was informed about her gallstones Punctate left renal calculi: Urology consult by Dr. Blair appreciated, no further recommendations Possible dehydration NS 150 mL per hour Mild UTI: Urine cultures Mauricio Hernandez at bedside Plan discussed with: Patient My Orders Orders - CASEY SULLIVAN MD Procedure Category Date Status Time * Urology Consult CONS 10/22/24 Transmitted 09:36 Date of Service: Oct 23, 2024 Billing Provider: CASEY SULLIVAN MD Common Visit Codes: [id number] INP/OBS CARE(HIGH) CASEY SULLIVAN MD Oct 23, 2024 09:12
[2024-10-23] MEDS: cefTRIAXone 1GM/50ML D5W 50 ML IV SCH (12:11)
--- NOTE | 2024-10-23 14:58 | DVHPN2 ---
Progress Note Date Seen: Oct 23, 2024 Medical Necessity Reason Pt with a Central, PICC or Fol: No Subjective Review of Systems Pt reports she has been urinating. Patient reports: No new complaints, Feels better Objective vital signs Vital Sign Date Time Temp Pulse Resp B/P (MAP) Pulse Ox O2 Delivery O2 Flow Rate FiO2 10/23/24 13:00 97.7 67 17 105/42 (63) 98 97.7 10/23/24 07:57 Room Air* 0 21 Total Intake and Output 10/22/24 10/22/24 10/23/24 15:00 23:00 07:00 Intake Total 300 ml 200 ml Output Total 400 ml Balance -100 ml 200 ml medications Current Medications Medications Dose Ordered Sig/Marlena Route Start Time Stop Time Status Last Admin Dose Admin Aspirin 81 mg DAILY PO 10/20/24 10:00 10/23/24 08:56 81 MG Atorvastatin Calcium 10 mg HS PO 10/19/24 22:00 10/21/24 21:19 10 MG Patient Own Medication 200 mg BID PO 10/19/24 22:00 Lamotrigine 100 mg Q12HR PO 10/19/24 22:00 10/23/24 08:57 100 MG Ondansetron HCl 4 mg Q4HP PRN IV 10/19/24 19:15 Nitroglycerin 0.4 mg Q5MINP PRN SL 10/19/24 19:15 10/19/24 22:39 0.4 MG Morphine Sulfate 2 mg Q30M PRN IV 10/19/24 19:15 Ketorolac Tromethamine 15 mg Q6HPRN PRN IV 10/20/24 16:15 10/25/24 16:14 10/23/24 00:55 15 MG Acetaminophen 650 mg Q6HP PRN PO 10/20/24 16:30 10/21/24 00:41 650 MG Potassium Chloride 40 meq BID PO 10/21/24 22:00 10/23/24 08:57 40 MEQ Sodium Chloride 1,000 ml @ 150 mls/hr Q6H40M IV 10/22/24 08:30 10/22/24 09:19 150 MLS/HR Ceftriaxone Sodium 50 ml @ 100 mls/hr DAILY@09 IV 10/23/24 10:04 10/23/24 12:11 100 MLS/HR Examination Gen: Appears stated age, no acute distress Lungs: Bilateral air entry, no rales CVS: RRR, normal S1 and S2 Abd:normoactive bowel sounds, soft, nontender, nondistended Ext: No edema Neuro: A&O x 4 laboratory and microbiology Laboratory Tests 10/23/24 06:05 10/19/24 10:33 Test 10/23/24 06:05 Range/Units Serum Glucose 86 74-106 mg/dL Microbiology Date/Time Source Procedure Growth Status 10/22/24 08:39 Voided Urine Urine Culture - Preliminary Resulted Labs and/or images reviewed: Labs reviewed by me Problem List/Assessment/Plan Problem List/Assessment/Plan IMP Hypokalemia-resolved unknown baseline GFR- improved GFR 108, downtrending creat 0.69 ? Oliguria- pt has improved output. Possible functional oliguria suspect kidney function preserved CP- cardiology following Hx of seizures REC BMP Strict I&O's Continue potassium supplementation Avoidance of nephrotoxins Will sign off of case. Case discussed with Dr. Jose Salguero Plan discussed with: Patient ERLINDA WRIGHT [employer]ER Oct 23, 2024 14:58
[2024-10-24 01:00] VITALS: BP 111/48; PULSE 66; RESP 18; TEMP 97.4; O2SAT 100
[2024-10-24 05:00] VITALS: BP 103/86; PULSE 65; RESP 18; TEMP 97.3; O2SAT 99
[2024-10-24 08:00] VITALS: BP 106/34; PULSE 63; PULSE 68; RESP 16; RESP 18; TEMP 98.2; O2SAT 100; O2SAT 99
--- NOTE | 2024-10-24 08:31 | DVHPN2 ---
Reviewed: Care Plan, H&P, Labs, Medications, Previous Orders, Radiology Changes from previous H/P or p: No Changes Objective Vitals Vital Signs Date Time Temp Pulse Resp B/P (MAP) Pulse Ox O2 Delivery O2 Flow Rate FiO2 10/24/24 05:00 97.3 65 18 103/86 (92) 99 97.3 10/23/24 20:00 Room Air* 0 21 Intake/Output Intake and Output 10/24/24 07:00 Intake Total 1510 ml Balance 1510 ml Intake Oral 560 ml IV Total 950 ml # Voids 5 Medications Current Medications Medications Dose Ordered Sig/Marlena Route Start Time Stop Time Status Last Admin Dose Admin Aspirin 81 mg DAILY PO 10/20/24 10:00 10/23/24 08:56 81 MG Atorvastatin Calcium 10 mg HS PO 10/19/24 22:00 10/23/24 22:37 10 MG Patient Own Medication 200 mg BID PO 10/19/24 22:00 Lamotrigine 100 mg Q12HR PO 10/19/24 22:00 10/23/24 22:37 100 MG Ondansetron HCl 4 mg Q4HP PRN IV 10/19/24 19:15 Nitroglycerin 0.4 mg Q5MINP PRN SL 10/19/24 19:15 10/19/24 22:39 0.4 MG Morphine Sulfate 2 mg Q30M PRN IV 10/19/24 19:15 Ketorolac Tromethamine 15 mg Q6HPRN PRN IV 10/20/24 16:15 10/25/24 16:14 10/24/24 00:17 15 MG Acetaminophen 650 mg Q6HP PRN PO 10/20/24 16:30 10/21/24 00:41 650 MG Potassium Chloride 40 meq BID PO 10/21/24 22:00 10/23/24 22:37 40 MEQ Sodium Chloride 1,000 ml @ 150 mls/hr Q6H40M IV 10/22/24 08:30 10/24/24 07:10 150 MLS/HR Ceftriaxone Sodium 50 ml @ 100 mls/hr DAILY@09 IV 10/23/24 10:04 10/23/24 12:11 100 MLS/HR Laboratory Results Laboratory Tests 10/19/24 10:33 10/23/24 06:05 Urinalysis Test 10/22/24 08:39 Urine Color Yellow (Yellow) Urine Clarity Cloudy (Clear) H Urine pH 6.0 (5.0-9.0) Urine Specific [place] 1.032 (1.001-1.035) Urine Protein Trace (Negative) H Urine Ketones Negative (Negative) Urine Blood 3+ /uL (Negative) H Urine Nitrite Negative (Negative) Urine Bilirubin Negative (Negative) Urine Urobilinogen Normal mg/dL (Negative) Urine Leukocyte Esterase 2+ /uL (Negative) Urine RBC 160 /hpf (0 - 4) Urine Microscopic WBC 24 /HPF (0-5) H Urine Squamous Epithelial Cells Few /hpf (<5) Urine Bacteria Few /hpf (None Seen) H Urine Mucus Moderate (None Seen) Urine Creatinine 309.81 mg/dL (30.0-125.0) H Urine Sodium 128 mmol/L (40-220) Urine Glucose Normal mg/dL (Normal) Microbiology Microbiology Date/Time Source Procedure Growth Status 10/22/24 08:39 Voided Urine Urine Culture - Preliminary Resulted Labs and/or images reviewed: Labs reviewed by me, Image(s) reviewed by me Assessment/Plan Assessment/Plan Noncardiac chest pain Troponin negative x3, treatment per ACS protocol, cardiology consult for Dr. Alvarez appreciated, placed on Toradol 15 mg IV q.6, echo 60 percent ejection fraction, no further cardiac workup History of seizures Oliguria: Nephrology consult appreciated NS 150 mL/hour, TSH normal, uric acid normal; oliguria improved Cholelithiasis: Patient was informed about her gallstones Punctate left renal calculi: Urology consult by Dr. Blair appreciated, no further recommendations Patient has normal urine output at the time of discharge Mild UTI: Urine cultures negative, treated with Rocephin JONO Huff at bedside Plan discussed with: Patient My Orders Orders - CASEY SULLIVAN MD Procedure Category Date Status Time Ceftriaxone 1gm/50ml PHA 10/23/24 In Process D5w (Rocephin) 10:04 Date of Service: Oct 24, 2024 Billing Provider: CASEY SULLIVAN MD Common Visit Codes: [id number] INP/OBS CARE(HIGH) CASEY SULLIVAN MD Oct 24, 2024 08:31
--- NOTE | 2024-10-24 08:36 | DVHDS2 ---
Discharge Summary Date of Admission Oct 19, 2024 at 19:10 Date of Discharge: Oct 24, 2024 Admitting Diagnosis Chest pain Wounds: None Labs/Diagnostic Data: Laboratory Results Test 10/23/24 06:05 10/22/24 08:39 10/22/24 05:20 10/21/24 09:49 Sodium Level 142 mmol/L (136-145) Potassium Level 4.0 mmol/L (3.5-5.1) Chloride Level 113 mmol/L (98-107) Carbon Dioxide Level 21 mmol/L (20-31) Anion Gap 8 (5-15) Blood Urea Nitrogen 8 mg/dL (9-23) Creatinine 0.69 mg/dL (0.550-1.02) Glomerular Filtration Rate Calc 108 mL/min (>90) BUN/Creatinine Ratio 11.6 (10.0-20.0) Serum Glucose 86 mg/dL (74-106) Calcium Level 8.7 mg/dL (8.7-10.4) Total Bilirubin 0.3 mg/dL (0.2-1.0) Aspartate Amino Transferase (AST) 11 U/L (13-40) Alanine Aminotransferase (ALT) < 9 U/L (7-40) Alkaline Phosphatase 93 U/L (46-116) Total Protein 6.2 g/dL (5.7-8.2) Albumin 3.6 g/dL (3.2-4.8) Urine Color Yellow (Yellow) Urine Clarity Cloudy (Clear) Urine pH 6.0 (5.0-9.0) Urine Specific [place] 1.032 (1.001-1.035) Urine Protein Trace (Negative) Urine Ketones Negative (Negative) Urine Blood 3+ /uL (Negative) Urine Nitrite Negative (Negative) Urine Bilirubin Negative (Negative) Urine Urobilinogen Normal mg/dL (Negative) Urine Leukocyte Esterase 2+ /uL (Negative) Urine RBC 160 /hpf (0 - 4) Urine Microscopic WBC 24 /HPF (0-5) Urine Squamous Epithelial Cells Few /hpf (<5) Urine Bacteria Few /hpf (None Seen) Urine Mucus Moderate (None Seen) Urine Creatinine 309.81 mg/dL (30.0-125.0) Urine Sodium 128 mmol/L (40-220) Urine Glucose Normal mg/dL (Normal) Urine Opiates Screen Neg (NEGATIVE) Urine Fentanyl Screen Neg (NEGATIVE) Urine Barbiturates Screen Neg (NEGATIVE) Urine Phencyclidine Screen Neg (NEGATIVE) Urine Amphetamines Screen Neg (NEGATIVE) Urine Benzodiazepines Screen Pos (NEGATIVE) Urine Cocaine Screen Neg (NEGATIVE) Urine Cannabinoids Screen Neg (NEGATIVE) Uric Acid 5.4 mg/dL (3.1-7.8) Magnesium Level 1.9 mg/dL (1.6-2.6) Thyroid Stimulating Hormone (TSH) 2.54 uIU/mL (0.55-4.78) Beta HCG, Quantitative 1.0 mIU/mL (1.5-4.2) Test 10/20/24 07:15 10/19/24 14:44 10/19/24 10:33 Triglycerides Level 74 mg/dL (< 150) Cholesterol Level 147 mg/dL (< 200) LDL Cholesterol 72 mg/dL (< 100) HDL Cholesterol 59 mg/dL (40-59) Troponin I High Sensitivity < 3 ng/L (</=34) White Blood Count 5.4 10^3/uL (4.4-10.8) Red Blood Count 5.04 10^6/uL (4.0-5.20) Hemoglobin 9.5 g/dL (12.2-16.2) Hematocrit 32.5 % (36.0-46.0) Mean Corpuscular Volume 64.4 fL (80.0-100.0) Mean Corpuscular Hemoglobin 18.9 pg (28.0-32.0) Mean Corpuscular Hemoglobin Concent 29.3 g/dL (32.0-36.0) Red Cell Distribution Width 17.9 % (11.8-14.3) Platelet Count 474 10^3/uL (140-450) Mean Platelet Volume 8.0 fL (6.9-10.8) Neutrophils (%) (Auto) 75.1 % (37.0-80.0) Lymphocytes (%) (Auto) 17.7 % (10.0-50.0) Monocytes (%) (Auto) 6.0 % (0.0-12.0) Eosinophils (%) (Auto) 0.9 % (0.0-7.0) Basophils (%) (Auto) 0.3 % (0.0-2.0) Neutrophils # (Auto) 4.0 10 ^3/uL (1.6-8.6) Lymphocytes # (Auto) 0.9 10 ^3/uL (0.4-5.4) Monocytes # (Auto) 0.3 10 ^3/uL (0-1.3) Eosinophils # (Auto) 0 10 ^3/uL (0-0.8) Basophils # (Auto) 0 10 ^3/uL (0-0.2) Nucleated Red Blood Cells 0.0 % Platelet Estimate Increased Hypochromasia (manual) Marked Microcytosis Marked Other Laboratory Tests 10/23/24 06:05 10/19/24 10:33 Brief Hx & Hospital Course: 48-year-old female with a history of seizures came in complaining of chest pain troponin negative x3 .. All labs normal seen by navy diver Dr. Dunn ejection fraction 60 percent no further cardiac workup. Patient complained of oliguria after admission given IV fluids seen by doctor of nurse anesthesia practice. TSH normal uric acid normal nephrology thinks patient had functional oliguria. Kidney ultrasound negative. The patient has history of gallstones. CT abdomen pelvis without contrast showed gallstones patient was informed about the gallstones. She had punctate left renal calculus urology consult by Dr. Blair advised no further treatment. Patient is discharged home in stable condition prescription for tramadol for noncardiac chest pain transmitted to the pharmacy. JONO Huff at bedside at the time of discussion with the patient about discharge plan. Consults/Reason for consult Cardiology Nephrology Operations or Procedures CT abdomen pelvis without contrast Echocardiogram Condition at Discharge: Fair Final Diagnosis/Problems List Noncardiac chest pain Troponin negative x3, treatment per ACS protocol, cardiology consult for Dr. Alvarez appreciated, placed on Toradol 15 mg IV q.6, echo 60 percent ejection fraction, no further cardiac workup History of seizures Oliguria: Nephrology consult appreciated NS 150 mL/hour, TSH normal, uric acid normal; oliguria improved Cholelithiasis: Patient was informed about her gallstones Punctate left renal calculi: Urology consult by Dr. Blair appreciated, no further recommendations Discharge Disposition: Home Discharge Instruct/Medications Diet: Regular Activity: No Restrictions, As Tolerated Follow Up/Referral: Follow up with your primary Medications: Tramadol Transmitted to pharmacy 35 (Time taken for discharge summary 35 minutes) Discharge Statement: "Patient was advised to return to the ER or call 911 if any headaches, dizziness, shortness of breath, chest pain, abdominal pain, bleeding, fevers, or worsening of medical condition. Patient was counseled about treatment plan, medications, possible side effects, patientverbalized understanding. All questions were answered to the best of my ability. This discharge took greater then 30 minutes in planning, reviewing documentation, counseling the patient, and discussing with other team members." ASSESSMENT ASSESSMENT Hospital Course Improved Assessment Noncardiac chest pain Troponin negative x3, treatment per ACS protocol, cardiology consult for Dr. Alvarez appreciated, placed on Toradol 15 mg IV q.6, echo 60 percent ejection fraction, no further cardiac workup History of seizures Oliguria: Nephrology consult appreciated NS 150 mL/hour, TSH normal, uric acid normal; oliguria improved Cholelithiasis: Patient was informed about her gallstones Punctate left renal calculi: Urology consult by Dr. Blair appreciated, no further recommendations Date of Service: Oct 24, 2024 Billing Provider: CASEY SULLIVAN MD Common Visit Codes: [id number] DISCH DAY >30min CASEY SULLIVAN MD Oct 24, 2024 08:36
[2024-10-24 09:00] VITALS: BP 106/39; PULSE 63; RESP 16; TEMP 98.2; O2SAT 100
[2024-10-24 11:45] VITALS: BP 106/39; PULSE 63; RESP 16; TEMP 98.2; O2SAT 100
== END 2024-10-24 13:15 | disposition home or self-care (01) | DRG 203 ==
LOC: ER 09:47 → EDBD 09:47 → OVERFLOW 19:10 → TELE-CENTR 10-20 23:57
PROVIDERS: ADMIT Family Medicine; ATTEND Family Medicine
DX: M94.0 Chondrocostal junction syndrome [Tietze] (principal); N17.0 Acute kidney failure with tubular necrosis; R56.9 Unspecified convulsions; E86.0 Dehydration; E66.9 Obesity, unspecified; I10 Essential (primary) hypertension; Z68.37 Body mass index [BMI] 37.0-37.9, adult; N39.0 Urinary tract infection, site not specified; N20.0 Calculus of kidney; K80.20 Calculus of gallbladder without cholecystitis without obstruction; E87.6 Hypokalemia; Z83.3 Family history of diabetes mellitus; Z82.49 Family history of ischemic heart disease and other diseases of the circulatory system; Z80.8 Family history of malignant neoplasm of other organs or systems
CPT/HCPCS: 36415; 71045; 74176; 76775; 80048; 80053; 80061; 80307; 81001; 82570; 83735; 84300; 84443; 84484; 84550; 84702; 85025; 87086; 93005; 93306; 99291; G0378; J1885

== ENCOUNTER 2025-01-16 14:29 | Emergency (ER) | payer MEDICAID ==
[~2025-01-16] VITALS: Ht 167.6 cm; Wt 96.0 kg
[~2025-01-16 14:29] MED LIST changes: +TRAM-626 PO
--- NOTE | 2025-01-16 15:17 | ED.PDOC ---
Musculoskeletal HPI Comments Patient is a 49-year-old female with a past medical history of seizures came to the ER with a chief complaint of left lower extremity pain. Patient was apparently well until yesterday when she was trying to move some furniture and was unable to do so with the hands so she is tries to use her left knee to push it following which she started to have pain in the left knee with a decreased range of motion. She came to the ER today for further evaluation. Denies any other acute complaints Chief Complaint: Lower Extremity Time Seen by MD: 14:34 Primary Care Provider: UNKNOWN Reviewed Notes: Nurses Notes, Medications, Allergies Allergies: Coded Allergies: NO KNOWN ALLERGIES (Unverified , 05/06/21) Home Meds Active Scripts Tramadol HCl (Tramadol HCl) 50 Mg Tab, 50 MG PO QID, #40 TAB Prov:CASEY SULLIVAN MD 10/21/24 Reported Medications Lamotrigine (Lamictal) 100 Mg Tab, 3 TAB PO QHSP, #30 TAB 1 Refill 02/26/24 Lamotrigine (Lamictal) 100 Mg Tab, 1 TAB PO QAM, #30 TAB 1 Refill 02/26/24 Brivaracetam (Briviact) 100 Mg Tab, 200 MG PO BID, TAB 02/26/24 Zonisamide (Zonisamide) 100 Mg Cap, 100 MG PO, CAP 02/25/24 Cholecalciferol (VITAMIN D3) 2,000 Unit Tab, 1 TAB PO DAILY, #30 TAB 5 Refills 02/25/24 Clobazam (ONFI) 10 Mg Tab, 10 MG PO, TAB 02/25/24 Cholecalciferol (VITAMIN D3) 2,000 Unit Tab, 1 TAB PO DAILY, #30 TAB 5 Refills 10/11/23 Brivaracetam (Briviact) 100 Mg Tab, 100 MG PO BID, TAB 12/25/18 Mode of Arrival: Ambulatory Past Medical History PAST MEDICAL HISTORY: HTN, Seizures, Thyroid Surgical History: Denies all surgeries Surgical History (Other): Neurosurgery in 2004 PHLEBOTOMY SERVICES REPRESENTATIVE History: No Pertinent PHLEBOTOMY SERVICES REPRESENTATIVE History Family History Family History: No family hx of HTN, Family hx of DM, Family hx of Cancer Social History Smoker: Non-Smoker Alcohol: Denies ETOH Use Drugs: Denies Drug Use Lives In: Home Constitutional: denies: chills, diaphoresis, fatigue, fever, malaise, sweats, weakness, others EENTM: denies: blurred vision, double vision, ear bleeding, ear discharge, ear drainage, ear pain, ear ringing, eye pain, eye redness, hearing loss, mouth pain, mouth swelling, nasal discharge, nose bleeding, nose congestion, nose pain, photophobia, tearing, throat pain, throat swelling, voice changes, others Respiratory: denies: cough, hemoptysis, orthopnea, SOB at rest, shortness of breath, SOB with excertion, stridor, wheezing, others Cardiovascular: denies: chest pain, dizzy spells, diaphoresis, Dyspnea on exertion, edema, irregular heart beat, left arm pain, lightheadedness, palpitations, PND, syncope, others Gastrointestinal: denies: abdomen distended, abdominal pain, blood streaked bowels, constipated, diarrhea, dysphagia, difficulty swallowing, hematemesis, melena, nausea, poor appetite, poor fluid intake, rectal bleeding, rectal pain, vomiting, others Genitourinary: denies: abnormal vagina bleeding, burning, dyspareunia, dysuria, flank pain, frequency, hematuria, incontinence, pain, , vagina discharge, urgency, others Neurological: denies: dizziness, fainting, headache, left sided numbness, left sided weakness, numbness, paresthesia, pre-existing deficit, right sided numbness, right sided weakness, seizure, speech problems, tingling, tremors, wea kness, others Musculoskeletal: reports: joint pain (Left knee) Integumetry: denies: bruises, change in color, change in hair/nails, dryness, laceration, lesions, lumps, rash, wounds, others Allergic/Immunocompromised: denies: Difficulty Healing, Frequent Infections, Hives, Itching, others Hematologic/Lymphatic: denies: anemia, blood clots, easy bleeding, easy bruising, swollen glands, others Endocrine: denies: excessive hunger, excessive sweating, excessive thirst, excessive urination, flushing, intolerance to cold, intolerance to heat, unexplained weight gain, unexplained weight loss, others Psychiatric: denies: anxiety, bipolar disorder, depression, hopeless, panic disorder, schizophrenia, sleepless, suicidal, others Physical Exam General Appearance: Mild Distress HEENT: Normal ENT Inspection, Pharynx Normal, TMs Normal Neck: Full Range of Motion, Non-Tender, Normal, Normal Inspection Respiratory: Chest Non-Tender, Lungs Clear, No Accessory Muscle Use, No Respiratory Distress, Normal Breath Sounds Cardiovascular: No Edema, No JVD, No Murmur, No Gallop, Normal Peripheral Pulses, Regular Rate/Rhythm Breast Exam: Deferred Gastrointestinal: No Organomegaly, Non Tender, No Pulsatile Mass, Normal Bowel Sounds, Soft Genitalia: Deferred Pelvic: Deferred Rectal: Deferred Extremities: Tender, Other (Left knee decreased range of motion and tenderness) 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 Was a procedure done?: No Differential Diagnosis EXT Differential Diagnosis: Fracture, Sprain, Arthritis, Bursitis X-Ray, Labs, Meds, VS Vital Signs Date Time Temp Pulse Resp B/P (MAP) Pulse Ox O2 Delivery O2 Flow Rate FiO2 01/16/25 17:14 55 18 98 Room Air 01/16/25 17:14 55 18 125/91 (102) 98 01/16/25 17:12 68 16 97 Room Air 01/16/25 17:12 98.7 78 148/69 (95) 98 98.7 01/16/25 15:02 98.2 70 17 111/72 (85) 96 98.2 Lab Test 01/16/25 15:36 Range/Units White Blood Count 4.0 L 4.4-10.8 10^3/uL Red Blood Count 4.27 4.0-5.20 10^6/uL Hemoglobin 8.3 L 12.2-16.2 g/dL Hematocrit 27.1 L 36.0-46.0 % Mean Corpuscular Volume 63.6 L 80.0-100.0 fL Mean Corpuscular Hemoglobin 19.4 L 28.0-32.0 pg Mean Corpuscular Hemoglobin Concent 30.4 L 32.0-36.0 g/dL Red Cell Distribution Width 20.1 H 11.8-14.3 % Platelet Count 399 140-450 10^3/uL Mean Platelet Volume 7.5 6.9-10.8 fL Neutrophils (%) (Auto) 60.0 37.0-80.0 % Lymphocytes (%) (Auto) 23.1 10.0-50.0 % Monocytes (%) (Auto) 7.9 0.0-12.0 % Eosinophils (%) (Auto) 8.0 H 0.0-7.0 % Basophils (%) (Auto) 1.0 0.0-2.0 % Neutrophils # (Auto) 2.4 1.6-8.6 10 ^3/uL Lymphocytes # (Auto) 0.9 0.4-5.4 10 ^3/uL Monocytes # (Auto) 0.3 0-1.3 10 ^3/uL Eosinophils # (Auto) 0.3 0-0.8 10 ^3/uL Basophils # (Auto) 0 0-0.2 10 ^3/uL Nucleated Red Blood Cells 0.0 % Platelet Estimate Adequate Hypochromasia (manual) Marked Poikilocytosis (manual) Slight Anisocytosis (manual) Slight Microcytosis Marked Current Medications Medications (Trade) Dose Ordered Sig/Marlena Route Start Time Stop Time Status Last Admin Ibuprofen (Motrin Tablet) 600 mg ONCE ONCE PO 01/16/25 16:15 01/16/25 16:43 DC 01/16/25 17:10 Patient is a 49-year-old female with a past medical history of seizures came to the ER with a chief complaint of left knee pain after she suffered from injury yesterday while moving furniture. Patient has left knee tenderness and decreased range of motion. Knee x-ray was done which did not show any fracture, dislocation, malalignment, joint spaces were well-visualized. CBC showed microcytic hypochromic anemia but patient did not have any active bleeding, asymptomatic. Patient's primary care provider office was called and told that patient might benefit from outpatient knee MRI. Knee was put in an immobilizer and patient was advised not to bear weight until she sees her PCP. Patient would also benefit from further workup of microcytic hypochromic anemia. Patient discharged in stable condition to home and advised to take anti- inflammatory ibuprofen 400 mg b.i.d. PRN. Time of 1ST Reevaluation: 15:48 Reevaluation 1ST: Improved Patient Education/Counseling: Diagnosis, Treatment, Need For Follow Up Family Education/Counseling: No Family Present Departure 1 Departure Time of Disposition: 17:32 Impression: Primary Impression: Left knee pain Additional Impression: Microcytic hypochromic anemia Disposition: 01 HOME / SELF CARE / HOMELESS Condition: Stable Critical Care Note Critical Care Time?: No Stability Stability form required: No Heart Score Heart Score: Heart Score Response (Comments) Value History N/A 0 EKG N/A 0 Age N/A 0 Risk Factors N/A 0 Troponin N/A 0 Total 0 ERICH ANNA RESIDENT Jan 16, 2025 15:17
--- NOTE | 2025-01-16 15:28 | DVH ---
CLINICAL INDICATION: left knee pain TECHNIQUE: 3 radiographic views of the left knee were obtained. Comparison: None FINDINGS/IMPRESSION: There is no evidence of acute fracture or dislocation. The visualized joint space is well maintained. The alignment is anatomical. There is no radiopaque foreign body.
[2025-01-16 15:51] LABS: Hematocrit 27.1 % (36.0-46.0); Hemoglobin 8.3 g/dL (12.2-16.2); Mean Corpuscular Hemoglobin 19.4 pg (28.0-32.0); Mean Corpuscular Volume 63.6 fL (80.0-100.0); Nucleated Red Blood Cells % 0.0 %
[2025-01-16 16:24] LABS: Anisocytosis Slight
[2025-01-16] MEDS: IBUPROFEN 600 MG TAB PO ONE (17:10)
[2025-01-16 17:12] VITALS: TEMP 98.7
[2025-01-16 17:14] VITALS: BP 125/91; PULSE 55; RESP 18; O2SAT 98
[2025-01-16] MEDS ORDERED: IBUP1TAB4 PO (17:35)
== END 2025-01-16 18:04 | disposition home or self-care (01) ==
LOC: ER 14:29
DX: M25.562 Pain in left knee (principal); D50.9 Iron deficiency anemia, unspecified; I10 Essential (primary) hypertension; Z79.899 Other long term (current) drug therapy
CPT/HCPCS: 29505; 36415; 73562; 85025

== ENCOUNTER 2025-07-04 18:21 | Emergency (ER) | payer MEDICAID ==
[~2025-07-04] VITALS: Ht 167.6 cm; Wt 100.0 kg
[~2025-07-04 18:21] MED LIST changes: +IBUP1TAB4 PO
--- NOTE | 2025-07-04 18:47 | ED.PDOC ---
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 Pt states she was at home when she fell onto her knee, causing injury to the extremity that warranted a call to EMS. EMS states that pt has a past history of torn meniscus in the left knee. At the ED, patient presents with no bruising or swelling to the knee but complains of persistent pain radiating across left knee. Pt denies injury to head during fall and denies associated symptoms of dizziness, N/V/D, or chest pain at this time. Time Seen by MD: 18:42 Primary Care Provider: UNKNOWN Reviewed Notes: Nurses Notes, Medications, Allergies Allergies: Coded Allergies: NO KNOWN ALLERGIES (Unverified , 05/06/21) Home Meds Active Scripts Gabapentin (Once-Daily) (Gabapentin) 300 Mg Tab, 300 MG PO Q6HP PRN, #60 TAB Prov:DANIELA WOODS MD 07/04/25 Ibuprofen Micronized (Ibuprofen) 400 Mg Tab, 400 MG PO BIDPRN PRN for 7 Days, #14 TAB 0 Refills Prov:ERICH ANNA 01/16/25 Tramadol HCl (Tramadol HCl) 50 Mg Tab, 50 MG PO QID, #40 TAB Prov:CASEY SULLIVAN MD 10/21/24 Reported Medications Lamotrigine (Lamictal) 100 Mg Tab, 3 TAB PO QHSP, #30 TAB 1 Refill 02/26/24 Lamotrigine (Lamictal) 100 Mg Tab, 1 TAB PO QAM, #30 TAB 1 Refill 02/26/24 Brivaracetam (Briviact) 100 Mg Tab, 200 MG PO BID, TAB 02/26/24 Zonisamide (Zonisamide) 100 Mg Cap, 100 MG PO, CAP 02/25/24 Cholecalciferol (VITAMIN D3) 2,000 Unit Tab, 1 TAB PO DAILY, #30 TAB 5 Refills 02/25/24 Clobazam (ONFI) 10 Mg Tab, 10 MG PO, TAB 02/25/24 Cholecalciferol (VITAMIN D3) 2,000 Unit Tab, 1 TAB PO DAILY, #30 TAB 5 Refills 10/11/23 Brivaracetam (Briviact) 100 Mg Tab, 100 MG PO BID, TAB 12/25/18 Information Source: Patient Mode of Arrival: EMS Location: Left Extremity Location: Knee Timing: Hours Severity: Moderate Able to Move Extremity: No Bear Weight: Limited Pain: Moderate Circumstances: Fall, Tripped DVT Risk Factors: NONE Last Tetanus: Unknown Associated signs and symptoms: Knee pain Past Medical History PAST MEDICAL HISTORY: HTN, Seizures, Thyroid Surgical History: Denies all surgeries PULPWOOD CUTTER History: No Pertinent PULPWOOD CUTTER History Family History Family History: No family hx of HTN, Family hx of DM, Family hx of Cancer Social History Smoker: Non-Smoker Alcohol: Denies ETOH Use Drugs: Denies Drug Use Lives In: Home Constitutional: denies: chills, diaphoresis, fatigue, fever, malaise, sweats, weakness, others EENTM: denies: blurred vision, double vision, ear bleeding, ear discharge, ear drainage, ear pain, ear ringing, eye pain, eye redness, hearing loss, mouth pain, mouth swelling, nasal discharge, nose bleeding, nose congestion, nose pain, photophobia, tearing, throat pain, throat swelling, voice changes, others Respiratory: denies: cough, hemoptysis, orthopnea, SOB at rest, shortness of breath, SOB with excertion, stridor, wheezing, others Cardiovascular: denies: chest pain, dizzy spells, diaphoresis, Dyspnea on exertion, edema, irregular heart beat, left arm pain, lightheadedness, palpitations, PND, syncope, others Gastrointestinal: denies: abdomen distended, abdominal pain, blood streaked bowels, constipated, diarrhea, dysphagia, difficulty swallowing, hematemesis, melena, nausea, poor appetite, poor fluid intake, rectal bleeding, rectal pain, vomiting, others Genitourinary: denies: abnormal vagina bleeding, burning, dyspareunia, dysuria, flank pain, frequency, hematuria, incontinence, pain, , vagina discharge, urgency, others Neurological: denies: dizziness, fainting, headache, left sided numbness, left sided weakness, numbness, paresthesia, pre-existing deficit, right sided numbness, right sided weakness, seizure, speech problems, tingling, tremors, weakness, others Musculoskeletal: reports: joint pain; denies: back pain, gout, joint swelling, muscle pain, muscle stiffness, neck pain, others Integumetry: denies: bruises, change in color, change in hair/nails, dryness, laceration, lesions, lumps, rash, wounds, others Allergic/Immunocompromised: denies: Difficulty Healing, Frequent Infections, Hives, Itching, others Hematologic/Lymphatic: denies: anemia, blood clots, easy bleeding, easy bruising, swollen glands, others Endocrine: denies: excessive hunger, excessive sweating, excessive thirst, excessive urination, flushing, intolerance to cold, intolerance to heat, unexplained weight gain, unexplained weight loss, others Psychiatric: denies: anxiety, bipolar disorder, depression, hopeless, panic disorder, schizophrenia, sleepless, suicidal, others All Other Systems: Reviewed and Negative Physical Exam General Appearance: No Apparent Distress, Normal HEENT: Normal ENT Inspection, Pharynx Normal, TMs Normal Neck: Full Range of Motion, Non-Tender, Normal, Normal Inspection Respiratory: Chest Non-Tender, Lungs Clear, No Accessory Muscle Use, No Respiratory Distress, Normal Breath Sounds Cardiovascular: No Edema, No JVD, No Murmur, No Gallop, Normal Peripheral Pulses, Regular Rate/Rhythm Breast Exam: Deferred Gastrointestinal: No Organomegaly, Non Tender, No Pulsatile Mass, Normal Bowel Sounds, Soft Genitalia: Deferred Pelvic: Deferred Rectal: Deferred Extremities: No calf tenderness, Normal capillary refill, Normal inspection, Normal range of motion, Non-tender, No pedal edema Musculoskeletal : Apperance: Normal 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 Was a procedure done?: No Differential Diagnosis EXT Differential Diagnosis: Cellulitis, Deep Vein Thrombosis, Compartment Syndrome, Fracture, Sprain, Dislocation, Laceration, Gout, DJD, Contusion, Strain, Rheumatoid, Septic, Neurovascular injury, Arthritis, Bursitis, Other X-Ray, Labs, Meds, VS Vital Signs Date Time Temp Pulse Resp B/P (MAP) Pulse Ox O2 Delivery O2 Flow Rate FiO2 07/04/25 21:13 Room Air* 0 21 07/04/25 20:10 98.7 89 18 120/69 (86) 100 98.7 07/04/25 18:52 98.8 89 18 112/53 99 98.8 Current Medications Medications (Trade) Dose Ordered Sig/Marlena Route Start Time Stop Time Status Last Admin Acetaminophen/ Hydrocodone Bitart ([place] 10/325MG Tab) 1 tab ONCE ONCE PO 07/04/25 18:30 07/04/25 18:31 DC 07/04/25 20:12 Time of 1ST Reevaluation: 19:12 Reevaluation 1ST: Unchanged Patient Education/Counseling: Diagnosis, Treatment, Need For Follow Up Family Education/Counseling: No Family Present Departure 1 Departure Time of Disposition: 21:00 Impression: Primary Impression: Left knee pain Additional Impression: Left knee sprain Disposition: HOME / SELF CARE / HOMELESS Condition: Stable e-Prescriptions Gabapentin (Once-Daily) (Gabapentin) 300 Mg Tab 300 MG PO Q6HP PRN, #60 TAB Prov: DANIELA WOODS MD 07/04/25 Discharged With: Self Critical Care Note Critical Care Time?: No Stability Stability form required: No Heart Score Heart Score: Heart Score Response (Comments) Value History N/A 0 EKG N/A 0 Age N/A 0 Risk Factors N/A 0 Troponin N/A 0 Total 0 I personally scribed for DANIELA WOODS MD ([email or web address]) on 07/04/25 at 18:47. Electronically submitted by Lalita Eaton ([email or web address]). DANIELA WOODS MD Jul 04, 2025 18:47
--- NOTE | 2025-07-04 19:52 | DVH ---
CLINICAL INDICATION: left knee pain / fall TECHNIQUE: 3 radiographic views of the left knee were obtained. COMPARISON: XY L KNEE 3V XRAY on DOS: 01/16/25 FINDINGS/IMPRESSION: Normal bony alignment. No fracture or dislocation No radiopaque foreign bodies
[2025-07-04 20:10] VITALS: BP 120/69; PULSE 89; RESP 18; TEMP 98.7; O2SAT 100
[2025-07-04] MEDS ORDERED: GABA300T4 PO (20:11)
[2025-07-04] MEDS: HYDROcodone-ACET 10/325MG TAB PO ONE (20:12)
== END 2025-07-04 21:13 | disposition home or self-care (01) ==
LOC: EDBD 18:21 → ER 18:21
DX: S83.92XA Sprain of unspecified site of left knee, initial encounter (principal); I10 Essential (primary) hypertension; W19.XXXA Unspecified fall, initial encounter; Y93.89 Activity, other specified; Y92.009 Unspecified place in unspecified non-institutional (private) residence as the place of occurrence of the external cause; Y99.8 Other external cause status
CPT/HCPCS: 73562